=== PATIENT | male | born 1955 | race Caucasian/White ===

== ENCOUNTER 2019-12-11 14:03 | Emergency (ER) | payer MEDICARE, SELFPAY ==
[2019-12-11] VITALS (22 sets, daily range): BP systolic 100–122; BP diastolic 52–85; PULSE 80–98; RESP 12–20; TEMP 36.3; O2SAT 92–100
--- NOTE | ~2019-12-11 | CT_ITS ---
EXAMINATION: CT brain wo con EXAM DATE: 12/11/2019 14:30 INDICATION: Dizziness and shakiness, symptoms 3 days. TECHNIQUE: Spiral CT of the head was performed without contrast. Axial, coronal and sagittal images were reviewed. The dose-length product (DLP) for this examination was 605.33 mGy-cm. The exposure w as tailored according to patient size, and iterative reconstruction (ASIR) was used as additional dos e reduction technique. There is no prior study for comparison. FINDINGS: There is no acute intraparenchymal hemorrhage. No evidence of intraparenchymal brain mass lesion. No evidence of acute infarction. Please note that initial head CT has limited sensitivity f or small or acute infarctions. There is mild periventricular and subcortical hypodensity, nonspecific but probably related to small vessel ischemic disease. There is mild prominence of the sulci and v entricles related to cerebral atrophy. There is intracranial carotid arteriosclerosis. There are n o extra-axial collections. There is no mass effect or midline shift. The orbits are unremarkable. Soft tissue is unremarkable. The visualized sinuses and mastoid air cells are well aerated. IMPRESSION: 1. No acute intracranial findings. 2. Chronic age related findings. Reviewed, dictated and finalized at location A.
--- NOTE | ~2019-12-11 | XR_ITS ---
EXAMINATION: XR chest 2V EXAM DATE: 12/11/2019 14:34 INDICATION: Dizziness and weakness. TECHNIQUE: Frontal and lateral projections of the chest obtained and reviewed. There is no prior my dy for comparison. FINDINGS: Some hyperinflation. The lungs are clear. There are no pleural effusions. The cardiomedia stinal silhouette is within normal limits. There is no pneumothorax suspected. The bones and soft t issues are unremarkable. IMPRESSION: No acute cardiopulmonary findings. Reviewed, dictated and finalized at location A.
--- NOTE | 2019-12-11 14:10 | ECG_ITS ---
Measurements Intervals [place] Rate: 95 P: 42 [place]: 189 QRS: -61 QRSD: 164 T: 22 QT: 393 QTc: 496 Interpretive Statements SINUS RHYTHM LEFT AXIS DEVIATION RIGHT BUNDLE BRANCH BLOCK BASELINE ARTIFACT- AVR, AVF ABNORMAL ECG Electronically Signed On 12-11-2019 14:21:27 CDT by Cecil Boothe D.O.
[2019-12-11 14:57] LABS: Basophils Percent Auto 0.4 % (0.2-1.2); Eosinophils Absolute Auto 0.1 K/mm3 (0-0.3); Hematocrit 38.1 % (42.0-52.0); Hemoglobin 12.9 g/dL (14.0-18.0); Immature Granulocyte Absolute 0.03 K/mm3 (0.00-0.031); Immature Granulocyte Percent A 0.5 % (0-0.5); Lymphocytes Absolute Auto 1.22 K/mm3 (0.9-3.2); Lymphocytes Percent Auto 21.9 % (18.3-44.2); Mean Corpuscular HGB Conc 33.9 g/dl (32-36); Mean Corpuscular Hemoglobin 29.8 pg (26-34); Mean Platelet Volume 11.3 fl (7.4-10.4); Monocytes Absolute Auto 0.6 K/mm3 (0.1-0.6); Monocytes Percent Auto 10.4 % (2.6-8.5); Neutrophils Absolute Auto 3.6 K/mm3 (1.3-6.7); Neutrophils Percent Auto 64.8 % (45.5-73.1); Platelet Count Result 152 k/mm3 (150-375); Red Blood Count 4.33 M/mm3 (4.6-6.20); Red Cell Distribution Width 13.2 % (11.5-14.5); White Blood Count 5.6 K/mm3 (4.5-10.0)
[2019-12-11 15:06] LABS: Alanine Aminotransferase 18 U/L (4-50); Albumin Level 4.3 g/dL (3.5-5.1); Alkaline Phosphatase 93 U/L (38-126); Anion Gap 10 mmol/L (8-16); Aspartate Amino Transferase 22 U/L (17-59); Bilirubin,Total 0.5 mg/dL (0.2-1.3); Blood Urea Nitrogen 24 mg/dL (9-20); CRP < 0.5 mg/dL (<1.0); Calcium 9.3 mg/dL (8.4-10.2); Carbon Dioxide 27 mmol/L (22-30); Chloride 103 mmol/L (98-107); Estimated CRCL calculation 45 ml/min; Estimated Glomerular Filt Rate 41; Glucose 134 mg/dL (75-110); Lipase 32 U/L (23-300); Potassium 4.5 mmol/L (3.4-5.0); Sodium 140 mmol/L (137-145)
[2019-12-11 15:09] LABS: Lactic Acid Reflex 1.3 mmol/L (0.7-2.1)
[2019-12-11 15:16] LABS: Troponin I < 0.012 ng/mL (0.000-0.034)
[2019-12-11 15:19] LABS: Partial Thromboplastin Time 31.7 SECONDS (22.3-36.8)
[2019-12-11] MEDS: SODIUM CHLORIDE 0.9% IV 1,000 ML 999 ML IV CONT (15:44)
--- NOTE | 2019-12-11 15:58 | ED.GENADULT ---
HPI - General Adult General Chief complaint: Dizziness Stated complaint: DIZZY LIGHTHEADED SHAKING Time Seen by Provider: 12/11/19 15:33 Source: patient and EMS Limitations: clinical condition History of Present Illness HPI narrative: Patient is a 64-year-old male who presents to emergency department for evaluation of dizziness from [facility] patient with history of anxiety depression paranoia bipolar disorder type 2 diabetes mellitus hyperlipidemia hypertension patient on arrival notes that he was having paranoia about an individual wanting to hurt him at the [facility]. Patient also notes he has felt slightly dizzy. Patient denies other complaints on arrival and is otherwise resting comfortably in the room in no distress patient denies any suicidal or homicidal ideation Related Data Allergies Allergy/AdvReac Type Severity Reaction Status Date / Time prednisone Allergy Swelling Verified 12/11/19 15:44 Review of Systems Review of Systems: ROS unobtainable: Yes unobtainable due to medical condition PMFSH Past Medical History Medical History (Updated 12/11/19 @ 17:06 by Nikhil Keating PA-C) Anxiety Bipolar 1 disorder Depression Hyperlipidemia Hypertension Exam Narrative: Exam Narrative: GENERAL: Well-appearing, well-nourished, and in no acute distress. HEAD: Normocephalic, atraumatic. EYES: PERRLA and EOMI. ENT: Nares clear, no rhinorrhea or epistaxis. Mucous membranes moist. Oropharynx without tonsillar hypertrophy exudate or other lesions. Right TM nonerythematous nonbulging left tm unable to visualize secondary to cerumen impaction NECK: Supple. No adenopathy or masses. CHEST: Clear to auscultation. No respiratory distress. No wheezes rales or rhonchi HEART: Regular rate and rhythm. No murmur heard. Normal peripheral pulses. ABDOMEN: Soft, nontender, nondistended EXTREMITIES: Normal range of motion. No edema. SKIN: Warm, dry, no rash. NEURO: No focal deficits. Alert and oriented person date to include month and year as well as reason for being in the emergency department. Cranial nerves II through XII grossly intact PSYCH: Normal mood and affect. Course Course Emergency Course: Patient in the room in no distress aware of case findings treatment plan and diagnosis felt appropriate for [facility] back to the [facility] no high risk changes in the blood work or imaging able to ambulate without difficulty possible dehydration as the etiology of his symptoms felt appropriate for return to [facility] for reevaluation by primary care Vital Signs Vital signs: Vital Signs Temperature 97.4 F L 12/11/19 14:07 Pulse Rate 98 12/11/19 14:07 Respiratory Rate 20 12/11/19 14:07 Blood Pressure 119/78 12/11/19 14:07 Pulse Oximetry 96 12/11/19 14:07 Temperature 97.4 F L 12/11/19 14:07 Pulse Rate 98 12/11/19 14:07 Respiratory Rate 12/11/19 14:07 Blood Pressure 119/78 12/11/19 14:07 Pulse Oximetry 96 12/11/19 14:07 Medical Decision Making MDM Narrative Medical decision making narrative: Patient in the room in no distress aware of case findings treatment plan and diagnosis normal vital signs no high risk changes in the blood work or imaging was hydrated was able to ambulate without difficulty has remained stable in no distress with no complaints resting comfortably and felt appropriate for discharge back to the Vital Signs Vital Signs: Vital Signs Temperature 97.4 F L 12/11/19 14:07 Pulse Rate 98 12/11/19 14:07 Respiratory Rate 12/11/19 14:07 Blood Pressure 119/78 12/11/19 14:07 Pulse Oximetry 96 12/11/19 14:07 Temperature 97.4 F L 12/11/19 14:07 Pulse Rate 98 12/11/19 14:07 Respiratory Rate 12/11/19 14:07 Blood Pressure 119/78 12/11/19 14:07 Pulse Oximetry 96 12/11/19 14:07 Lab Data Result diagrams: 12/11/19 14:38 12/11/19 14:38 Labs: Lab Results 12/11/19 12/11/19 12/11/19 Range/Units 14:38 14
[2019-12-11 16:17] LABS: Valproic Acid 62.8 ug/mL (50-120)
[2019-12-11 16:22] LABS: Add Urine Microscopic? NO; Appearance Urine Clear (Clear); Bilirubin Urine Negative (Negative); Blood Urine Negative (Negative); Color Urine Yellow (Yellow); Glucose Urine UA Negative (Negative); Ketones Urine Negative (Negative); Leukocyte Esterase Ur Negative LEU/UL (Negative); Nitrate Urine Negative (Negative); Protein Urine Negative (Negative); Specific Grav Ur 1.012 (1.001-1.035); Urobilinogen Urine Negative mg/dL (<2.0)
--- NOTE | 2019-12-11 17:48 | PC.NURSE ---
PT AMBULATED WITHOUT ASSISTANCE.
== END 2019-12-11 18:53 ==
PROVIDERS: Emergency Medicine Emergency Medical Services; Emergency Provider Emergency Medicine
DX: R42 Dizziness and giddiness (principal); E11.9 Type 2 diabetes mellitus without complications; I10 Essential (primary) hypertension; I45.10 Unspecified right bundle-branch block
CPT/HCPCS: 36415; 51701; 70450; 71046; 80053; 80164; 81003; 83605; 83690; 84484; 85025; 85610; 85730; 86140; 93005; 96360; 99284; J7030

== ENCOUNTER 2020-01-20 13:12 | Emergency (ER) | payer MEDICARE, SELFPAY ==
--- NOTE | ~2020-01-20 | XR_ITS ---
EXAMINATION: XR hip LT 2V w AP pelvis DATE: 01/20/2020 14:00 INDICATION: Left hip injury. TECHNIQUE: An anteroposterior view of the pelvis and 2 views of left hip were obtained. COMPARISON: None. FINDINGS: There is dextrocurvature and mild spondylosis of lumbar spine. No fracture. There is mild o steoarthritis of the hips. IMPRESSION: 1. Mild osteoarthritis of the hips. Reviewed, dictated and finalized at location A. CE BOOKING OFFICER
--- NOTE | ~2020-01-20 | CT_ITS ---
EXAMINATION: CT cervical spine wo con DATE: 01/20/2020 14:08 INDICATION: Head injury. TECHNIQUE: Computed tomography (CT) of the cervical spine was performed without intravenous contrast. Automated exposure control and iterative reconstruction technique were employed. The dose-length pro duct was 387.45 mGy-cm. COMPARISON: None FINDINGS: There is mild emphysema. Bone alignment is normal. Vertebral body heights and intervertebra l disc heights are normal. The following disc levels are specifically discussed: C2-C3: There is no uncovertebral joint osteoarthritis. There is moderate right and severe left facet joint osteoarthritis. There is no neural foraminal stenosis. There is no central canal stenosis. C3-C4: There is mild bilateral uncovertebral joint osteoarthritis. There is severe right and mild lef t facet joint osteoarthritis. There is mild right neural foraminal stenosis. There is mild central ca nal stenosis. C4-C5: There is mild right and moderate left uncovertebral joint osteoarthritis. There is moderate ri ght and severe left facet joint osteoarthritis. There is mild bilateral neural foraminal stenosis. Th ere is mild central canal stenosis. C5-C6: There is mild left uncovertebral joint osteoarthritis. There is severe bilateral facet joint o steoarthritis. There is mild left neural foraminal stenosis. There is mild central canal stenosis. C6-C7: There is no uncovertebral joint osteoarthritis. There is moderate right and mild left facet glenny int osteoarthritis. There is no neural foraminal stenosis. There is no central canal stenosis. C7-T1: There is no uncovertebral joint osteoarthritis. There is severe right and moderate left facet joint osteoarthritis. There is mild right neural foraminal stenosis. There is no central canal stenos is. IMPRESSION: 1. No fracture. 2. Mild cervical spondylosis. Reviewed, dictated and finalized at location A. UNTING TECHNICIAN
--- NOTE | ~2020-01-20 | CT_ITS ---
EXAMINATION: CT brain wo con DATE: 01/20/2020 14:08 INDICATION: Head injury. TECHNIQUE: Computed tomography (CT) of the head was performed without intravenous contrast. The mA wa s adjusted according to patient size. Iterative reconstruction technique was employed. The dose-lengt h product was 605.33 mGy-cm. COMPARISON: Head CT 12/11/2019 FINDINGS: There is no intracranial hemorrhage, acute infarction, or abnormal intracranial mass lesion . The ventricles are normal in size. The paranasal sinuses are clear. The mastoid air cells are pura l. The orbits are normal. IMPRESSION: 1. Normal brain. Reviewed, dictated and finalized at location A. MANAGER RN IMPRESSION: 1. Normal brain.
--- NOTE | ~2020-01-20 | XR_ITS ---
EXAMINATION: XR knee LT 3V DATE: 01/20/2020 14:00 INDICATION: Left knee injury. TECHNIQUE: 3 views of left knee were obtained. COMPARISON: None. FINDINGS: Bone alignment is normal. No fracture. There is mild osteoarthritis of patellofemoral teressa rtment. No knee joint effusion. IMPRESSION: 1. Mild left knee osteoarthritis. Reviewed, dictated and finalized at location A. LE DRILLER
[2020-01-20 13:16] VITALS: BP 134/98; PULSE 97; RESP 16; TEMP 36.8; O2SAT 95
--- NOTE | 2020-01-20 14:33 | ED.FALL ---
HPI - Fall General Chief Complaint: Fall Stated Complaint: fall, hit head. +LOC Time Seen by Provider: 01/20/20 13:19 History of Present Illness HPI Narrative: Patient is a 64-year-old male who presents ER status post fall. Patient was in his bedroom and tripped over a blanket and fell and struck his head. Apparently he lost consciousness. He initially told the shelter that he had some left hip pain. Here he reports left knee pain. No other concerns at this time. Related Data Allergies Allergy/AdvReac Type Severity Reaction Status Date / Time prednisone Allergy Swelling Verified 12/11/19 15:44 Review of Systems Review of Systems: All systems reviewed & are unremarkable except as noted in HPI and below Constitutional: Constitutional: Denies chills, Denies fever(s) and Denies weakness ENT: Denies nasal congestion and Denies sore throat Cardiovascular: Cardiovascular: Denies chest pain and Denies radiating jaw, neck or arm pain Respiratory: Respiratory: Denies cough and Denies dyspnea Musculoskeletal: Musculoskeletal: Denies back pain, Reports arthralgias, Denies joint swelling and Denies muscle cramps PMFSH Past Medical History Medical History (Updated 01/20/20 @ 14:40 by Felipe Ley MD) Anxiety Bipolar 1 disorder Depression Hyperlipidemia Hypertension Surgical History Surgical History (Updated 01/20/20 @ 14:37 by Felipe Ley MD) No pertinent past surgical history Social History Social History (Updated 01/20/20 @ 14:37 by Felipe Ley MD) Social History: Resides at [facility]. 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 Exam Narrative: Exam Narrative: GENERAL: Well-appearing, well-nourished, and in no acute distress. HEAD: Normocephalic, atraumatic. EYES: PERRL and EOMI. NECK: C-spine immobilized. No midline tenderness. CHEST: Clear to auscultation. No respiratory distress. HEART: Regular rate and rhythm. Normal peripheral pulses. EXTREMITIES: Maintains range of motion bilateral hips and knees. Mild tenderness over the left knee. SKIN: Warm, dry, no rash. NEURO: Alert and oriented x3. Course Course Emergency Course: Unremarkable evaluation. Discharge home. Vital Signs Vital signs: Vital Signs Temperature 98.2 F 11/08/20 13:16 Pulse Rate 97 01/20/20 13:16 Respiratory Rate 16 01/20/20 13:16 Blood Pressure 134/98 H 01/20/20 13:16 Pulse Oximetry 95 01/20/20 13:16 Temperature 98.2 F 01/20/20 13:16 Pulse Rate 97 01/20/20 13:16 Respiratory Rate 16 01/20/20 13:16 Blood Pressure 134/98 H 01/20/20 13:16 Pulse Oximetry 95 01/20/20 13:16 MDM - Fall Imaging Data Radiologist's impression: ITS Impressions Knee X-Ray 01/20/20 14:02 IMPRESSION: 1. Mild left knee osteoarthritis. Hip/Pelvis X-Ray 01/20/20 14:03 IMPRESSION: 1. Mild osteoarthritis of the hips. Head CT 01/20/20 14:09 IMPRESSION: 1. Normal brain. Cervical Spine CT 01/20/20 14:12 IMPRESSION: 1. No fracture. 2. Mild cervical spondylosis. Discharge Plan Discharge Clinical Impression: Knee pain Patient Disposition: Home, Self-Care Condition: Stable Instructions: Knee Pain (ED) Additional Instructions: CT imaging of your head and neck as well as x-ray imaging of your left knee and hip revealed no acute injury. Return to the ER if you have recurrent fall, you have chest pain or shortness of breath, cannot keep down food or water, you have additional concerns. Follow-up/Referrals: NALINI,Taqueria ALICEA. [Primary Care Provider] - 1 Week
[2020-01-20 14:52] VITALS: BP 136/78; PULSE 90; RESP 18; O2SAT 98
--- NOTE | 2020-01-20 14:58 | PC.NURSE ---
called [facility] to transfer patient home. [facility] declined due to not having rigs in the area. Contacted [facility] to transfer and the gave an eta of now. they are on their way
--- NOTE | 2020-01-20 15:27 | PC.NURSE ---
[facility] has arrived
[2020-01-20 15:42] VITALS: BP 120/90; PULSE 84; RESP 17; O2SAT 98
--- NOTE | 2020-01-20 15:43 | ECG_ITS ---
Measurements Intervals [place] Rate: 98 P: [place]: 0 QRS: -75 QRSD: 173 T: 28 QT: 387 QTc: 494 Interpretive Statements SINUS RHYTHM LEFT AXIS DEVIATION RIGHT BUNDLE BRANCH BLOCK BASELINE WANDER- V4, V6 ABNORMAL ECG Electronically Signed On 01-20-2020 18:03:10 PRODUCT DEVELOPMENT ASSISTANT by Cecil Boothe D.O.
== END 2020-01-20 15:43 | disposition home or self-care (01) ==
PROVIDERS: Emergency Provider Emergency Medicine; PCP Internal Medicine
DX: M25.562 Pain in left knee (principal); E78.5 Hyperlipidemia, unspecified; I10 Essential (primary) hypertension; Z66 Do not resuscitate; M17.12 Unilateral primary osteoarthritis, left knee; M16.0 Bilateral primary osteoarthritis of hip; M47.812 Spondylosis without myelopathy or radiculopathy, cervical region; W18.09XA Striking against other object with subsequent fall, initial encounter; I45.10 Unspecified right bundle-branch block
CPT/HCPCS: 70450; 72125; 73502; 73562; 93005; 99284

== ENCOUNTER 2020-02-10 03:39 | Emergency (ER) | payer MEDICARE, SELFPAY ==
[2020-02-10] VITALS (16 sets, daily range): BP systolic 101–119; BP diastolic 68–86; PULSE 91–102; RESP 13–21; TEMP 37.8; O2SAT 91–99
--- NOTE | ~2020-02-10 | XR_ITS ---
XR chest 1V portable DATE: 02/10/2020 04:24 INDICATION: Cough TECHNIQUE: Portable AP chest on 02/10/2020 at 0426 hours COMPARISON: 12/11/2019 AP and lateral chest FINDINGS: Mild interstitial infiltrate is suggested in the left mid and lower lung zone. The lungs ot herwise appear essentially clear on this limited portable mildly hyper penetrated chest. Repeat chest radiograph is recommended. Heart size normal. Aortic calcification. No hilar or mediastinal enlargement is evident. Included skeletal structures are unremarkable other than osteopenia and degenerative change of the th oracic spine. IMPRESSION: Suggestion of mild interstitial infiltrate in the left mid and lower lung zones Reviewed, dictated and finalized at location A. H MEASURER MACHINE IMPRESSION: Suggestion of mild interstitial infiltrate in the left mid and lowe r lung zones
--- NOTE | ~2020-02-10 | CT_ITS ---
EXAMINATION: CT brain wo con DATE: 02/10/2020 05:10 INDICATION: Altered mental status. Multiple falls. TECHNIQUE: Computed tomography (CT) of the head was performed without intravenous contrast. The mA wa s adjusted according to patient size. Iterative reconstruction technique was employed. Exam dose: 68 1.00 mGy-cm total exam DLP. COMPARISON: 01/20/2020 CT brain FINDINGS: No intracranial mass lesion or hemorrhage or cerebrovascular accident. No midline shift or mass effect. Normal ventricular size. No subdural or epidural hematoma. Orbital contents are unremark able. No fracture or bone destruction of the cranial vault. Mastoid air cells and paranasal sinuses are nor bill developed and aerated. IMPRESSION: Negative Reviewed, dictated and finalized at Location A. Reviewed, dictated and finalized at location A. ION DIRECTOR PARTY PLAN SALES IMPRESSION: Negative
--- NOTE | ~2020-02-10 | CT_ITS ---
EXAMINATION: CT abdomen pelvis wo con DATE: 02/10/2020 06:33 INDICATION: Abdominal pain TECHNIQUE: Computed tomography (CT) of the abdomen and pelvis was performed without intravenous contr ast. Automated exposure control and iterative reconstruction technique were employed. Exam dose: 106 4.98 mGy-cm total exam DLP. COMPARISON: None. FINDINGS: There are focal areas of minimal infiltrate or atelectasis at the lung bases. Normal heart size. No pericardial or pleural effusion. Small sliding hiatal hernia. The liver, gallbladder, bile ducts, spleen, pancreas, pancreatic duct and adrenal glands are unremark able on this limited noncontrast examination. Exophytic 2.6 cm posterior mid right renal cyst. 1.5 cm hyperdense upper pole lateral left renal cyst. 1.8 cm exophytic indeterminate posterolateral mid left renal hypodense indeterminate lesion. No urinary tract calculus or hydroureteronephrosis. Normal caliber of the abdominal aorta; no intraperitoneal or retroperitoneal or pelvic mass lesion or lymphadenopathy or ascites. Small fat-containing umbilical hernia. Prostate enlargement. The urinary bladder is unremarkable. No bowel obstruction, bowel wall thickening, pneumatosis or intraperitoneal free air. No suspicious osteolytic or osteoblastic lesions. IMPRESSION: Indeterminate 1.8 cm left renal hypodense lesion; consider further evaluation with CT ab domen examination with IV contrast material or MRI renal examination Bilateral renal cysts Small sliding hiatal hernia Prostate enlargement Reviewed, dictated and finalized at Location A. Reviewed, dictated and finalized at location A. HER EDUCATION DIRECTOR IMPRESSION: Indeterminate 1.8 cm left renal hypodense lesion; consider further evaluation with CT abdomen examination with IV contrast material or MRI renal examination Bilateral renal cysts Small sliding hiatal hernia Prostate enlargement
--- NOTE | ~2020-02-10 | CT_ITS ---
EXAMINATION: CT cervical spine wo con DATE: 02/10/2020 05:10 INDICATION: Multiple falls. Neck pain. Altered mental status. TECHNIQUE: Computed tomography (CT) of the cervical spine was performed without intravenous contrast. Automated exposure control and iterative reconstruction technique were employed. Exam dose: 548.66 mGy-cm total exam DLP. COMPARISON: None FINDINGS: Emphysematous changes and probable scarring in both apices. No cervical mass lesion or lymphadenopathy is evident. The thyroid gland appears normal. C1 and C2 are normally aligned and the odontoid process is intact. No fracture or dislocation or lock ed facet or prevertebral soft tissue swelling of the cervical spine. Cervical interspaces are relativ brunilda preserved. There is degenerative change at the apophyseal joints bilaterally, especially on the l eft at C4-5 and on the right at C3-4. IMPRESSION: Degenerative changes; no fracture or dislocation Reviewed, dictated and finalized at Location A. Reviewed, dictated and finalized at location A. RIBUTION SUPERVISOR
--- NOTE | 2020-02-10 03:51 | ECG_ITS ---
Measurements Intervals [place] Rate: 94 P: 59 MD: 209 QRS: -62 QRSD: 181 T: 23 QT: 387 QTc: 485 Interpretive Statements SINUS RHYTHM WITH FIRST DEGREE AV BLOCK LEFT AXIS DEVIATION RIGHT BUNDLE BRANCH BLOCK BASELINE ARTIFACT- I, II, AVR, AVL, AVF ABNORMAL ECG Electronically Signed On 02-10-2020 8:05:13 SUPERVISOR UNDERWRITING CLERKS by Cecil Boothe D.O.
[2020-02-10 04:16] LABS: Alveolar/Arterial O2 Gradient 53.5 mmHg; Base Excess ABG -2.1 mEq/l (+/-2.0); Fractional Inspired Oxygen 21 %; HCO3 ABG 21.2 mEq/l (22.0-26.0); Oxygen Content ABG 14.5 %vol (16.0-22.0); Oxygen Saturation ABG 91.9 % (95.0-100.0); Oxyhemoglobin 89.4 % THb (90.0-100.0); PCO2 ABG 31.3 mmHg (35.0-45.0); PO2 ABG 58.8 mmHg (80.0-100.0); Site Drawn RIGHT RADIAL; Total Hemoglobin 11.5 g/dL (12.0-18.0); pH ABG 7.448 (7.350-7.450)
[2020-02-10 04:17] LABS: Device ROOM AIR; Modified Allen's Test Pass
[2020-02-10] MEDS: SODIUM CHLORIDE 0.9% IV 1,000 ML 999 ML IV CONT (04:28)
[2020-02-10 04:29] LABS: Basophils Percent Auto 0.2 % (0.2-1.2); Eosinophils Percent Auto 0.1 % (0-4.4); Hemoglobin 11.3 g/dL (14.0-18.0); Immature Granulocyte Absolute 0.04 K/mm3 (0.00-0.031); Immature Granulocyte Percent A 0.5 % (0-0.5); Lymphocytes Absolute Auto 0.76 K/mm3 (0.9-3.2); Mean Corpuscular HGB Conc 33.2 g/dl (32-36); Mean Corpuscular Hemoglobin 30.3 pg (26-34); Mean Corpuscular Volume 91.2 fl (80-100); Monocytes Absolute Auto 0.9 K/mm3 (0.1-0.6); Monocytes Percent Auto 10.2 % (2.6-8.5); Neutrophils Absolute Auto 6.7 K/mm3 (1.3-6.7); Platelet Count Result 114 k/mm3 (150-375); Red Blood Count 3.73 M/mm3 (4.6-6.20); Red Cell Distribution Width 14.6 % (11.5-14.5); White Blood Count 8.4 K/mm3 (4.5-10.0)
[2020-02-10 04:39] LABS: Ammonia < 9 umol/L (9-30)
[2020-02-10 04:41] LABS: Alanine Aminotransferase 47 U/L (4-50); Alkaline Phosphatase 70 U/L (38-126); Anion Gap 15 mmol/L (8-16); Aspartate Amino Transferase 232 U/L (17-59); Bilirubin,Total 1.2 mg/dL (0.2-1.3); Blood Urea Nitrogen 34 mg/dL (9-20); Calcium 9.3 mg/dL (8.4-10.2); Carbon Dioxide 23 mmol/L (22-30); Chloride 102 mmol/L (98-107); Estimated CRCL calculation 42 ml/min; Estimated Glomerular Filt Rate 38; Glucose 74 mg/dL (75-110); Potassium 4.3 mmol/L (3.4-5.0); Prothrombin Time 13.9 Seconds (11.1-14.7); Sodium 140 mmol/L (137-145)
[2020-02-10 04:42] LABS: Partial Thromboplastin Time 36.4 SECONDS (22.3-36.8)
--- NOTE | 2020-02-10 04:51 | PC.NURSE ---
Patient taken to CT.
[2020-02-10 04:52] LABS: Troponin I < 0.012 ng/mL (0.000-0.034)
[2020-02-10 05:02] LABS: Add Urine Microscopic? YES; Appearance Urine Clear (Clear); Bilirubin Urine Negative (Negative); Blood Urine 1+ (Negative); Color Urine Yellow (Yellow); Glucose Urine UA Negative (Negative); Ketones Urine 1+ mg/dL (Negative); Leukocyte Esterase Ur Negative LEU/UL (Negative); Nitrate Urine Negative (Negative); Protein Urine 1+ mg/dL (Negative); RBC Urine 0-2 /hpf (0-2); Specific Grav Ur 1.017 (1.001-1.035); Urobilinogen Urine Negative mg/dL (<2.0); WBC Urine 0-3 /hpf
--- NOTE | 2020-02-10 05:13 | ED.AMS ---
HPI - Altered Mental Status General Chief Complaint: Altered Mental Status Stated Complaint: FEVER/ AMS Time Seen by Provider: 02/10/20 03:47 Limitations: altered mental status History of Present Illness HPI narrative: Patient is a 64-year-old gentleman who presents to the emergency department with chief complaint of altered mental status frequent falls and fever. Per the [facility] the patient has been more confused than normal is also had multiple falls at the [facility]. They noticed that he had a low-grade fever and I decided to send the patient to the emergency department for evaluation tonight. Patient currently has no complaints but is confused and not able to provide history. The [facility] reports that the patient has not had any vomiting diarrhea or been complaining of abdominal pain or shortness of breath. Patient has been tested multiple times for COVID-19 and they have come back negative to this point. Related Data Home Medications Medication Instructions Recorded Confirmed amitriptyline 02/10/20 atenolol 02/10/20 atorvastatin 02/10/20 bupropion HCl PO 02/10/20 divalproex PO 02/10/20 duloxetine mg PO 02/10/20 gabapentin 02/10/20 hydroxyzine HCl 02/10/20 lorazepam 02/10/20 mirtazapine mg 02/10/20 montelukast mg 02/10/20 omeprazole 02/10/20 prazosin 02/10/20 tamsulosin mg PO 02/10/20 tramadol mg 02/10/20 umeclidinium [Incruse Ellipta] INHALATION 02/10/20 Allergies Allergy/AdvReac Type Severity Reaction Status Date / Time prednisone Allergy Swelling Verified 02/10/20 03:53 Review of Systems Review of Systems: Narrative: CONSTITUTIONAL: Denies fever, chills, or sweats. EYES: Denies visual changes, redness, or discharge. ENT: Denies rhinorrhea, congestion, sore throat, or otalgia. CARDIOVASCULAR: Denies chest pain, palpitations, or edema. RESPIRATORY: Denies cough or dyspnea. GASTROINTESTINAL: Denies abdominal pain, nausea, vomiting, or diarrhea. GENITOURINARY: Denies dysuria or hematuria. SKIN: Denies rash or itching. MUSCULOSKELETAL: Denies back pain, joint pain, or myalgia. NEUROLOGIC: Denies headache, numbness, or weakness. PSYCHIATRIC: Denies anxiety or depression. A 10 system review of systems was completed on the patient and is negative except for what is stated in the HPI. Nursing and ancillary documentation was reviewed. [facility] Past Medical History Medical History Anxiety Bipolar 1 disorder Depression Hyperlipidemia Hypertension Surgical History Surgical History No pertinent past surgical history Social History Social History Social History: Resides at [facility]. 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 Exam Narrative: Exam Narrative: GENERAL: Well-appearing, well-nourished, and in no acute distress. HEAD: Normocephalic, atraumatic. EYES: PERRLA and EOMI. ENT: Nares clear, no rhinorrhea or epistaxis. Mucous membranes moist. NECK: Supple. CHEST: Clear to auscultation. No respiratory distress. HEART: Regular rate and rhythm. No murmur heard. Normal peripheral pulses. ABDOMEN: Soft, nontender, nondistended, normal active bowel sounds. EXTREMITIES: Normal range of motion. No edema. SKIN: Warm, dry, no rash. NEURO: No focal deficits. Alert and confused. PSYCH: Normal mood and affect. Course Course Emergency Course: Patient is currently back to alert oriented x2. Patient will be ambulated if he is able to ambulate well the patient will be discharged back to [facility]. The patient was able to tolerate ambulation and is currently asking for breakfast Vital Signs Vital signs: Vital Signs Temperature 37.8 C H 02/10/20 03:36 Pulse Rate 95 02/10/20 03:36 Respiratory Rate 13 02/10/20 03:36 Blood Pressure 101/68 01/13
--- NOTE | 2020-02-10 05:39 | PC.NURSE ---
Patients caregiver at [facility] calls to get update on patient's status.
--- NOTE | 2020-02-10 06:16 | PC.NURSE ---
Patient being taken back to CT.
== END 2020-02-10 10:04 ==
PROVIDERS: Emergency Provider Emergency Medicine
DX: R53.1 Weakness (principal); F41.9 Anxiety disorder, unspecified; F31.9 Bipolar disorder, unspecified; E78.5 Hyperlipidemia, unspecified; I10 Essential (primary) hypertension; Z66 Do not resuscitate; I44.0 Atrioventricular block, first degree; I45.10 Unspecified right bundle-branch block; R91.8 Other nonspecific abnormal finding of lung field; N28.9 Disorder of kidney and ureter, unspecified; N28.1 Cyst of kidney, acquired; K44.9 Diaphragmatic hernia without obstruction or gangrene; N40.0 Benign prostatic hyperplasia without lower urinary tract symptoms
CPT/HCPCS: 36415; 36600; 51701; 70450; 71045; 72125; 74176; 80053; 81001; 82140; 82805; 83605; 84484; 85025; 85610; 85730; 87040; 93005; 96360; 99284; J7030

== ENCOUNTER 2020-09-01 18:32 | Observation (INO) | payer MEDICARE, MEDICAID, SELFPAY ==
--- NOTE | ~2020-09-01 | XR_ITS ---
EXAMINATION: XR chest 2V DATE: 09/01/2020 19:23 INDICATION: Left-sided chest pain. TECHNIQUE: Frontal and lateral views of the chest were obtained. COMPARISON: Chest single view 02/10/2020, CT abdomen and pelvis 02/10/2020 FINDINGS: There is mild atelectasis in right lower lung zone. No pleural effusion or pneumothorax. Th e heart size is normal. There are old healed right rib fractures. IMPRESSION: 1. Mild atelectasis in right lower lung zone. Reviewed, dictated and finalized at location A.
--- NOTE | ~2020-09-01 | CT_ITS ---
EXAMINATION: CT brain wo con DATE: 09/01/2020 20:29 INDICATION: Confusion. TECHNIQUE: Computed tomography (CT) of the head was performed without intravenous contrast. The mA wa s adjusted according to patient size. Iterative reconstruction technique was employed. The dose-lengt h product was 681.00 mGy-cm. COMPARISON: Head CT 02/10/2020 FINDINGS: There is no intracranial hemorrhage, acute infarction, or abnormal intracranial mass lesion . The ventricles are normal in size. There is mild mucosal thickening in the paranasal sinuses. The o rbits are normal. The mastoid air cells are normal. There is cerumen in left external auditory canal. IMPRESSION: 1. Normal brain. Reviewed, dictated and finalized at location A. IMPRESSION: 1. Normal brain.
[2020-09-01 18:31] VITALS: BP 131/89; PULSE 100; RESP 12; TEMP 36.5; O2SAT 93
--- NOTE | 2020-09-01 18:49 | ECG_ITS ---
Measurements Intervals [place] Rate: 101 P: 55 [place]: 199 QRS: -85 QRSD: 169 T: 30 QT: 364 QTc: 472 Interpretive Statements SINUS TACHYCARDIA LEFT AXIS DEVIATION RIGHT BUNDLE BRANCH BLOCK BASELINE ARTIFACT- I, II, III, AVL, AVF, V2 ABNORMAL ECG Electronically Signed On 09-02-2020 8:00:28 CDT by Cecil Boothe D.O.
--- NOTE | 2020-09-01 18:52 | ED.GENADULT ---
HPI - General Adult General Chief complaint: Chest Pain Stated complaint: STEMI Time Seen by Provider: 09/01/20 18:38 Source: patient and EMS History of Present Illness HPI narrative: Patient is a 65 y/o male sent here from [place] for altered mental status and frequent fall. Patient has no complaint at this time. He denies any injury from his falls. He reportedly fell earlier today. He states that he had some chest pain yesterday, but he has no chest pain at this time. Possible STEMI was suspected by EMS. However, after EKG review by myself and Dr. Paredes, it was thought that his EKG does not indicate STEMI. Related Data Home Medications Medication Instructions Recorded Confirmed amitriptyline 100 mg PO DAILY 02/10/20 09/02/20 atorvastatin 20 mg PO DAILY 02/10/20 09/02/20 bupropion HCl 150 mg PO BID 02/10/20 09/02/20 duloxetine 60 mg PO BID 02/10/20 09/02/20 gabapentin 100 mg PO TID 02/10/20 09/02/20 mirtazapine 45 mg PO DAILY 02/10/20 09/02/20 montelukast 10 mg PO DAILY 02/10/20 09/02/20 tamsulosin 0.4 mg PO DAILY 02/10/20 09/02/20 divalproex 500 mg PO BID 09/02/20 09/02/20 hydrocodone-acetaminophen 1 tablet PO BID PRN 09/02/20 09/02/20 meloxicam 7.5 mg PO DAILY 09/02/20 09/02/20 pantoprazole 40 mg PO DAILY 09/02/20 09/02/20 Allergies Allergy/AdvReac Type Severity Reaction Status Date / Time prednisone Allergy Swelling Verified 09/01/20 19:04 Review of Systems Review of Systems: ROS unobtainable: Yes unobtainable due to mental status PMFSH Past Medical History Medical History (Updated 09/02/20 @ 12:27 by Shayla Boyce MD) Anxiety Bipolar 1 disorder Depression Hyperlipidemia Hypertension Surgical History Surgical History No pertinent past surgical history Social History Social History Social History: Resides at [facility]. 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 Smoking status: Former smoker Second hand tobacco smoke exposure: Yes Alcohol intake: never Substance use: never Gender identity (if verbalized by the patient): Male Spiritual care concerns: No Exam Const: General: no acute distress and well developed Orientation/consciousness: oriented to person, oriented to place and confusion HENMT: Head: normocephalic Ears: external ears normal General nose exam: Normal external nose present Eyes: General: appearance normal, both eyes and all related structures Conjunctivae: conjunctivae normal Neck: Neck: normal visual inspection and full ROM Chest: Chest palpation & inspection: normal inspection of the chest and no tenderness Resp: Effort & Inspection: normal respiratory effort Auscultation: clear to auscultation bilaterally Cardio: Rate: regular rate Rhythm: regular rhythm GI: GI Palp: No abdominal tenderness and Yes Soft to palpation Skin: General skin exam: normal color and turgor normal Neuro: General: oriented to person and oriented to place Extrem: General: normal to inspection, full ROM and no pedal edema Psych: Appearance: grossly normal Mental Status: mental status grossly normal Affect: normal affect Course Consultations Consultation #1: Discussed with Dr. Li, who agrees to admit. Date: 09/01/20 Time: 22:17 Vital Signs Vital signs: Vital Signs Temperature 36.5 C 09/01/20 18:31 Pulse Rate 100 09/01/20 18:31 Respiratory Rate 12 09/01/20 18:31 Blood Pressure 131/89 09/01/20 18:31 Pulse Oximetry 93 09/01/20 18:31 Temperature 36.2 C L 09/02/20 11:25 Pulse Rate 94 09/02/20 12:11 Respiratory Rate 16 09/02/20 11:25 Blood Pressure 141/82 H 09/02/20 11:25 Pulse Oximetry 97 09/02/20 12:13 Medical Decision Making Vital Signs Vital Signs: Vital Signs Temperature 36.5 C 09/01/20 18:31 Pulse Rate 100 09/01/20 18:31 Respiratory Rate 12 09/01/20 18:31 Blood Pressure 131/89
[2020-09-01 19:01] LABS: Basophils Percent Auto 0.4 % (0.2-1.2); Eosinophils Absolute Auto 0.2 K/mm3 (0-0.3); Eosinophils Percent Auto 4.2 % (0-4.4); Hematocrit 40.6 % (42.0-52.0); Hemoglobin 13.1 g/dL (14.0-18.0); Immature Granulocyte Absolute 0.02 K/mm3 (0.00-0.031); Immature Granulocyte Percent A 0.4 % (0-0.5); Lymphocytes Absolute Auto 1.08 K/mm3 (0.9-3.2); Lymphocytes Percent Auto 22.6 % (18.3-44.2); Mean Corpuscular HGB Conc 32.3 g/dl (32-36); Mean Corpuscular Hemoglobin 30.3 pg (26-34); Mean Platelet Volume 12.8 fl (7.4-10.4); Monocytes Absolute Auto 0.5 K/mm3 (0.1-0.6); Monocytes Percent Auto 11.1 % (2.6-8.5); Neutrophils Absolute Auto 2.9 K/mm3 (1.3-6.7); Neutrophils Percent Auto 61.3 % (45.5-73.1); Platelet Count Result 103 k/mm3 (150-375); Red Blood Count 4.32 M/mm3 (4.6-6.20); Red Cell Distribution Width 14.6 % (11.5-14.5); White Blood Count 4.8 K/mm3 (4.5-10.0)
[2020-09-01 19:13] LABS: Prothrombin Time 14.1 Seconds (11.1-14.7)
[2020-09-01 19:14] LABS: Anion Gap 12 mmol/L (8-16); Blood Urea Nitrogen 47 mg/dL (9-20); Calcium 9.6 mg/dL (8.4-10.2); Carbon Dioxide 28 mmol/L (22-30); Chloride 102 mmol/L (98-107); Estimated CRCL calculation 29 ml/min; Estimated Glomerular Filt Rate 23; Glucose 106 mg/dL (75-110); Partial Thromboplastin Time 28.6 SECONDS (22.3-36.8); Potassium 3.9 mmol/L (3.4-5.0); Sodium 142 mmol/L (137-145)
[2020-09-01 19:25] LABS: Troponin I < 0.012 ng/mL (0.000-0.034)
[2020-09-01 22:02] LABS: Troponin I < 0.012 ng/mL (0.000-0.034)
[2020-09-01] MEDS: SODIUM CHLORIDE 0.9% IV 1,000 ML 999 ML IV CONT (22:11)
[2020-09-01 22:36] LABS: Base Excess ABG 2.2 mEq/l (+/-2.0); Fractional Inspired Oxygen 21 %; HCO3 ABG 26.8 mEq/l (22.0-26.0); Oxygen Content ABG 16.1 %vol (16.0-22.0); Oxygen Saturation ABG 92.8 % (95.0-100.0); Oxyhemoglobin 91.3 % THb (90.0-100.0); PCO2 ABG 41.9 mmHg (35.0-45.0); PO2 ABG 63.6 mmHg (80.0-100.0); PO2 FiO2 Ratio Arterial Blood 3.03 %; Total Hemoglobin 12.5 g/dL (12.0-18.0); pH ABG 7.424 (7.350-7.450)
[2020-09-01 22:37] LABS: Device ROOM AIR; Modified Allen's Test Pass; Site Drawn RIGHT RADIAL
[2020-09-01 22:38] LABS: Ammonia < 9 umol/L (9-30)
[2020-09-01 23:55] LABS: Alanine Aminotransferase 28 U/L (4-50); Albumin Level 4.3 g/dL (3.5-5.1); Alkaline Phosphatase 59 U/L (38-126); Aspartate Amino Transferase 67 U/L (17-59); Bilirubin,Total 0.5 mg/dL (0.2-1.3)
[2020-09-02] VITALS (13 sets, daily range): BP systolic 125–149; BP diastolic 73–89; PULSE 75–94; RESP 16–18; TEMP 36–36.8; O2SAT 96–99; BMI 22.4
--- NOTE | 2020-09-02 00:22 | ADMGEN ---
This patient, Erwin Leggett, was admitted to Medical Room 348-01. Patient/family oriented to hospital policies and general routines including ID bracelet, bed and alarms, visiting hours, pain management, procedures, bathroom and other care routines, personal items, smoking policy, room service/diet, and visiting hours. Information on how to activate the Rapid Response Team has been discussed. Patient/Family are encouraged to report perceived risks to care and to ask questions if they do not understand what they are told or what they should do.
[2020-09-02] MEDS: SODIUM CHLORIDE 0.9% IV 1,000 ML 125 ML IV CONT (00:33)
[2020-09-02 01:49] LABS: Troponin I < 0.012 ng/mL (0.000-0.034)
[2020-09-02 02:44] LABS: Add Urine Microscopic? YES; Appearance Urine Clear (Clear); Bilirubin Urine Negative (Negative); Blood Urine Negative (Negative); Color Urine Yellow (Yellow); Glucose Urine UA Negative (Negative); Ketones Urine Trace mg/dL (Negative); Leukocyte Esterase Ur Negative LEU/UL (Negative); Mucus Urine Rare /lpf; Nitrate Urine Negative (Negative); Protein Urine 1+ mg/dL (Negative); RBC Urine 0-2 /hpf (0-2); Specific Grav Ur 1.021 (1.001-1.035); Squamous Epithelial Cell Urine Rare /hpf (Few); Urobilinogen Urine Negative mg/dL (<2.0); WBC Urine 0-3 /hpf
--- NOTE | 2020-09-02 03:03 | PM.IMHP ---
H&P: HPI History of Present Illness Date/Time: 09/02/20 03:03 Chief Complaint: Confusing Narrative: Patient is a 65 y/o male who is a [facility] resident was sent here for evaluation of altered mental status and frequent falls. He himself does not recollect any issues as he is confused. He is noted to have no injury from his falls. He thinks he is in [place]. He reports some discomfort in his belly when I evaluated him and had some difficulty in his urination. Other than that he denies any shortness of breath or cough. He denies any fever or chills. In the ED he was noted to be afebrile with stable vitals his creatinine was elevated at 2.8 with baseline around 1.8 prior to this. Rest of the other labs were within normal limits. Review of Systems Review of Systems: Narrative: Unreliable due to his confusion however - CONSTITUTIONAL: Denies weight loss, fever and chills. - HEENT: Denies changes in vision and hearing - RESPIRATORY: Denies SOB and cough. - CV: Denies palpitations and CP. - GI: Reports abdominal discomfort denies nausea, vomiting and diarrhea. - : Denies dysuria and urinary frequency. - MSK: Denies myalgia and joint pain. - SKIN: Denies rash and pruritus. - NEUROLOGICAL: Denies headache and syncope. - PSYCHIATRIC: Denies recent changes in mood. Denies anxiety and depression. All systems reviewed & are unremarkable except as noted in HPI and below Constitutional: Constitutional: Reports fatigue and Reports weakness Neurologic: Reports weakness Endocrine: Endocrine: Reports fatigue PMFSH Past Medical History Medical History (Updated 09/02/20 @ 03:09 by Bertram Li MD) Anxiety Bipolar 1 disorder Depression Hyperlipidemia Hypertension Surgical History Surgical History No pertinent past surgical history Social History Social History Social History: Resides at [facility]. 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 Smoking status: Former smoker Second hand tobacco smoke exposure: Yes Alcohol intake: never Substance use: never Gender identity (if verbalized by the patient): Male Spiritual care concerns: No Meds Home Medications and Allergies Home Medications Medication Instructions Recorded Confirmed Type amitriptyline 100 mg PO DAILY 02/10/20 09/02/20 History atorvastatin 20 mg PO DAILY 02/10/20 09/02/20 History bupropion HCl 150 mg PO BID 02/10/20 09/02/20 History duloxetine 60 mg PO BID 02/10/20 09/02/20 History gabapentin 100 mg PO TID 02/10/20 09/02/20 History mirtazapine 45 mg PO DAILY 02/10/20 09/02/20 History montelukast 10 mg PO DAILY 02/10/20 09/02/20 History tamsulosin 0.4 mg PO DAILY 02/10/20 09/02/20 History divalproex 500 mg PO BID 09/02/20 09/02/20 History hydrocodone-acetaminophen 1 tablet PO BID PRN 09/02/20 09/02/20 History meloxicam 7.5 mg PO DAILY 09/02/20 09/02/20 History pantoprazole 40 mg PO DAILY 09/02/20 09/02/20 History Allergies Allergy/AdvReac Type Severity Reaction Status Date / Time prednisone Allergy Swelling Verified 09/01/20 19:04 Vital Signs Vital Signs - 24 hr 09/01/20 18:31 09/02/20 00:25 09/02/20 00:45 Temperature 97.7 F 98.3 F Pulse Rate 100 87 80 Respiratory Rate 12 16 Blood Pressure 131/89 125/73 Pulse Oximetry 93 98 Exam Narrative: Exam Narrative: GENERAL: The patient is well developed, not in acute distress HEENT: Nonicteric sclerae, PERRLA, EOMI. Oropharynx clear. Dry mucous membranes. Conjunctivae appear well perfused. CHEST: Chest wall is nontender. HEART: Regular rate and rhythm without murmur, rubs, or gallops LUNGS: Clear to auscultation bilaterally. no respiratory distress ABDOMEN: Soft, positive bowel sounds, mild tenderness diffuse mostly on the lower abdomen, no organomegaly. Bladder scan done at bedside showing 300-400 mL urine SKIN: N
[2020-09-02 06:17] LABS: Anion Gap 9 mmol/L (8-16); Blood Urea Nitrogen 39 mg/dL (9-20); Calcium 9.1 mg/dL (8.4-10.2); Carbon Dioxide 27 mmol/L (22-30); Chloride 106 mmol/L (98-107); Estimated CRCL calculation 36 ml/min; Estimated Glomerular Filt Rate 30; Glucose 87 mg/dL (75-110); Potassium 3.5 mmol/L (3.4-5.0); Sodium 142 mmol/L (137-145)
[2020-09-02 07:24] LABS: Folic Acid > 20.0 ng/mL (2.76->20)
[2020-09-02] MEDS: ATORVASTATIN 20 MG TABLET PO (09:02)
[2020-09-02] MEDS: buPROPion HCL SR (12 HR) 150 MG TAB PO ×2 (09:03→16:55)
[2020-09-02] MEDS: MONTELUKAST SODIUM 10 MG TABLET PO (09:03)
[2020-09-02] MEDS: GABAPENTIN 100 MG CAPSULE PO ×3 (09:03→16:55)
[2020-09-02] MEDS: DIVALPROEX SODIUM DR 250 MG TABEC 500 MG PO ×2 (09:03→16:55)
[2020-09-02] MEDS: MIRTAZAPINE 15 MG TABLET 45 MG PO (09:03)
[2020-09-02] MEDS: DULoxetine HCL 60 MG CAPSULE.DR PO ×2 (09:04→16:54)
[2020-09-02] MEDS: HEPARIN SODIUM 5,000 UNITS/ML VIAL 5000 UNITS SUB-Q (09:04)
[2020-09-02] MEDS: PANTOPRAZOLE 40 MG TABLET PO (09:04)
[2020-09-02] MEDS: TAMSULOSIN HCL 0.4 MG CAPSULE PO ×2 (09:04→16:56)
[2020-09-02] MEDS: HYDROcodone/acetaminophen (*CRX) 5-325 MG TABLET 1 TAB PO (09:25)
[2020-09-02] MEDS: SODIUM CHLORIDE 0.9% IV 1,000 ML 75 ML IV CONT (12:29)
--- NOTE | 2020-09-02 17:19 | PM.IMPN ---
Progress Note: A&P Assessment and Plan (1) Altered mental status: Code(s): R41.82 - Altered mental status, unspecified Status: Acute Assessment and Plan: Baseline unknown. Suspect he may have some degree of underlying dementia. Head CT negative. Ammonia, TSH, B12, folate levels within normal limits. No evidence of infection on UA or CXR and no signs or symptoms to suggest acute infection. Continue with reorientation. Monitor mental status. Consider neurology consultation if no improvement (2) Acute on chronic renal failure: Code(s): N17.9 - Acute kidney failure, unspecified; N18.9 - Chronic kidney disease, unspecified Status: Acute Assessment and Plan: Baseline creatinine appears to be about 1.8. Creatinine at presentation was 2.8. Etiology unclear at this time. May be prerenal given improvement with IV fluids versus obstructive given urinary retention. Creatinine is 2.2 today. Continue gentle IV fluids Monitor renal function closely. Renally dose medications and avoid nephrotoxins. (3) Urinary retention: Code(s): R33.9 - Retention of urine, unspecified Status: Acute Assessment and Plan: Unclear if this is a chronic issue. Bladder scan today showed >600 cc, therefore straight cath was performed. Repeat bladder scan. Plan for Witt catheter if >350 cc Continue Flomax (4) Hypertension: Code(s): I10 - Essential (primary) hypertension Status: Acute Assessment and Plan: Blood pressure reviewed and has been generally well controlled. Last BP 141/89. Does not appear to be on any antihypertensive agents. Monitor BP trends (5) Thrombocytopenia: Code(s): D69.6 - Thrombocytopenia, unspecified Status: Acute Assessment and Plan: Platelets low at 103,000 today. Hold heparin Monitor platelet counts (6) Psychiatric illness: Code(s): F99 - Mental disorder, not otherwise specified Status: Acute Assessment and Plan: Bipolar 1, anxiety, and depression. Mood is stable at this time. No acute issues. Continue his medication regimen including bupropion, Depakote, mirtazapine, and Cymbalta Subjective Date/time seen: 09/02/20 17:19 Interval history: Date of service: 09/02/2020 Erwin Leggett is a 65-year-old male with a history of bipolar disorder, depression, anxiety, hypertension, hyperlipidemia who is seen in follow-up for altered mental status and urinary retention. His baseline mental status is unclear to me. I will plan to be in touch with family and care home staff to clarify his baseline. He is not really able to contribute to his history or answer my questions in a meaningful way. He complains of chronic low back pain but otherwise denies any pain. He is not having any trouble breathing. He is eating okay. Review of Systems Review of Systems: ROS unobtainable: Yes unobtainable due to mental status Exam Narrative: Exam Narrative: Mr. Leggett is a well-nourished, well-appearing 65-year-old male who is lying supine in bed. He appears comfortable and is in NARD. Neuro: awake, alert and oriented to self, states he is in [place] but later states he thinks he is at a hospital. States year is 2019, accurately states president. Cannot state month but aware it is summer., Speech clear. No focal neuro deficits noted HEENMT: normocephalic, atraumatic, EOMI, sclerae anicteric, moist oral mucosa, tongue midline, nares patent Neck: supple, no lymphadenopathy Respiratory: clear to auscultation bilaterally, nonlabored breathing Cardio: regular rate, regular rhythm with S1-S2 Abdomen: nondistended, normoactive bowel sounds, soft, nontender to palpation Extremities: no edema, erythema, cyanosis, clubbing, or tenderness to palpation, DP pulses 2+ bilaterally Skin: no rashes or lesions, warm and dry Psych: appropriate mood and affect, judgment and insight poor Objective Jose Luis
[2020-09-03] VITALS (11 sets, daily range): BP systolic 125–164; BP diastolic 76–92; PULSE 77–100; RESP 16; TEMP 36–36.7; O2SAT 96–100
[2020-09-03] MEDS: SODIUM CHLORIDE 0.9% IV 1,000 ML 75 ML IV CONT ×2 (00:50→17:10)
[2020-09-03 05:50] LABS: Hematocrit 37.2 % (42.0-52.0); Hemoglobin 12.1 g/dL (14.0-18.0); Immature Platelet Fraction Pct 8.7 % (0.9-11.2); Mean Corpuscular HGB Conc 32.5 g/dl (32-36); Mean Corpuscular Hemoglobin 30.4 pg (26-34); Mean Corpuscular Volume 93.5 fl (80-100); Mean Platelet Volume 12.1 fl (7.4-10.4); Platelet Count Result 86 k/mm3 (150-375); Red Blood Count 3.98 M/mm3 (4.6-6.20)
[2020-09-03 06:09] LABS: Alanine Aminotransferase 21 U/L (4-50); Albumin Level 3.6 g/dL (3.5-5.1); Alkaline Phosphatase 52 U/L (38-126); Anion Gap 8 mmol/L (8-16); Aspartate Amino Transferase 35 U/L (17-59); Bilirubin,Total 0.3 mg/dL (0.2-1.3); Blood Urea Nitrogen 25 mg/dL (9-20); Calcium 8.7 mg/dL (8.4-10.2); Carbon Dioxide 26 mmol/L (22-30); Chloride 107 mmol/L (98-107); Estimated CRCL calculation 52 ml/min; Estimated Glomerular Filt Rate 47; Glucose 87 mg/dL (75-110); Sodium 141 mmol/L (137-145)
[2020-09-03] MEDS: buPROPion HCL SR (12 HR) 150 MG TAB PO ×2 (08:08→17:11)
[2020-09-03] MEDS: GABAPENTIN 100 MG CAPSULE PO ×3 (08:08→17:11)
[2020-09-03] MEDS: DULoxetine HCL 60 MG CAPSULE.DR PO ×2 (08:09→17:11)
[2020-09-03] MEDS: DIVALPROEX SODIUM DR 250 MG TABEC 500 MG PO ×2 (08:09→17:12)
[2020-09-03] MEDS: PANTOPRAZOLE 40 MG TABLET PO (08:09)
[2020-09-03] MEDS: MIRTAZAPINE 15 MG TABLET 45 MG PO (08:09)
[2020-09-03] MEDS: MONTELUKAST SODIUM 10 MG TABLET PO (08:09)
[2020-09-03] MEDS: ATORVASTATIN 20 MG TABLET PO (08:09)
[2020-09-03] MEDS: TAMSULOSIN HCL 0.4 MG CAPSULE PO ×2 (08:09→17:12)
--- NOTE | 2020-09-03 14:06 | PM.IMPN ---
Progress Note: A&P Assessment and Plan (1) Altered mental status: Code(s): R41.82 - Altered mental status, unspecified Status: Acute Assessment and Plan: He exhibits confusion but does seem to be essentially at baseline based on NH report. Suspect he may have some degree of underlying dementia. Head CT negative. Ammonia, TSH, B12, folate levels within normal limits. No evidence of infection on UA or CXR and no signs or symptoms to suggest acute infection. Appreciate neurology consultation Continue to monitor mental status (2) Acute on chronic renal failure: Code(s): N17.9 - Acute kidney failure, unspecified; N18.9 - Chronic kidney disease, unspecified Status: Acute Assessment and Plan: Baseline creatinine appears to be about 1.8. Creatinine at presentation was 2.8. May be prerenal given improvement with IV fluids versus obstructive given urinary retention. Creatinine is back to baseline at 1.5 today. Will discontinue IV fluids as he is tolerating PO intake and has been adequately rehydrated Monitor renal function closely. Renally dose medications and avoid nephrotoxins. (3) Urinary retention: Code(s): R33.9 - Retention of urine, unspecified Status: Acute Assessment and Plan: Suspect this is related to BPH. He was able to urinate yesterday and has been urinating today without any signs of ongoing retention Continue Flomax Monitor urine output. Bladder scan as needed. (4) Hypertension: Code(s): I10 - Essential (primary) hypertension Status: Acute Assessment and Plan: Blood pressure reviewed and has been reasonable, mildly elevated at times. Last BP 141/90. Does not appear to be on any antihypertensive agents. Monitor BP trends (5) Thrombocytopenia: Code(s): D69.6 - Thrombocytopenia, unspecified Status: Acute Assessment and Plan: Appears to be chronic issue. Platelet count down to 86,000 today. No evidence of bleeding. Monitor platelet counts Check platelet antibodies. Consider hematology eval if continued decline Heparin discontinued. HIT unlikely as this is a chronic issue. (6) Psychiatric illness: Code(s): F99 - Mental disorder, not otherwise specified Status: Acute Assessment and Plan: Bipolar 1, anxiety, and depression. Mood is stable at this time. No acute issues. Continue his medication regimen including bupropion, Depakote, mirtazapine, and Cymbalta Subjective Date/time seen: 09/03/20 14:06 Interval history: Date of service: 09/02/2020 Erwin Leggett is a 65-year-old male with a history of bipolar disorder, depression, anxiety, hypertension, hyperlipidemia who is seen in follow-up for altered mental status and urinary retention. He remains confused today but seems maybe somewhat improved and is able to participate in conversation more. Complains of back pain in his midline lower back. He denies chest pain or shortness of breath. No nausea or vomiting. He has been eating well. Per nursing staff, he has been urinating regularly. He feels weak and admits he is having difficulty getting around. Discussed with skilled nursing staff reports at baseline he is alert and oriented to self and location. They noticed that recently he has become more combative. The biggest changes that he has been weak and having difficulty getting out of bed. Also been falling more frequently. He typically was able to transfer himself from bed to wheelchair. Review of Systems Review of Systems: All systems reviewed & are unremarkable except as noted in HPI and below Exam Narrative: Exam Narrative: Mr. Leggett is a well-nourished, well-appearing 65-year-old male who is lying supine in bed. He appears comfortable and is in NARD. Neuro: awake, alert and oriented to self. Knows he is in the hospital but unclear as to why. States year is 2020, accurately states president,
[2020-09-04] VITALS (8 sets, daily range): BP systolic 130–145; BP diastolic 82–88; PULSE 84–107; RESP 14–20; TEMP 36.1–36.5; O2SAT 95–96
[2020-09-04] MEDS: SODIUM CHLORIDE 0.9% IV 1,000 ML 75 ML IV CONT (05:31)
[2020-09-04 06:02] LABS: Basophils Percent Auto 0.2 % (0.2-1.2); Eosinophils Absolute Auto 0.1 K/mm3 (0-0.3); Eosinophils Percent Auto 2.5 % (0-4.4); Hematocrit 37.7 % (42.0-52.0); Hemoglobin 12.3 g/dL (14.0-18.0); Immature Granulocyte Absolute 0.02 K/mm3 (0.00-0.031); Immature Granulocyte Percent A 0.4 % (0-0.5); Lymphocytes Absolute Auto 0.96 K/mm3 (0.9-3.2); Lymphocytes Percent Auto 18.2 % (18.3-44.2); Mean Corpuscular HGB Conc 32.6 g/dl (32-36); Mean Corpuscular Hemoglobin 30.3 pg (26-34); Mean Corpuscular Volume 92.9 fl (80-100); Mean Platelet Volume 11.8 fl (7.4-10.4); Monocytes Absolute Auto 0.6 K/mm3 (0.1-0.6); Monocytes Percent Auto 11.7 % (2.6-8.5); Neutrophils Absolute Auto 3.5 K/mm3 (1.3-6.7); Platelet Count Result 94 k/mm3 (150-375); Red Blood Count 4.06 M/mm3 (4.6-6.20); Red Cell Distribution Width 14.2 % (11.5-14.5); White Blood Count 5.3 K/mm3 (4.5-10.0)
[2020-09-04 06:04] LABS: Anion Gap 6 mmol/L (8-16); Blood Urea Nitrogen 16 mg/dL (9-20); Calcium 8.7 mg/dL (8.4-10.2); Carbon Dioxide 26 mmol/L (22-30); Chloride 109 mmol/L (98-107); Estimated CRCL calculation 60 ml/min; Estimated Glomerular Filt Rate 56; Glucose 88 mg/dL (75-110); Potassium 4.3 mmol/L (3.4-5.0); Sodium 141 mmol/L (137-145)
[2020-09-04] MEDS: MIRTAZAPINE 15 MG TABLET 45 MG PO (08:06)
[2020-09-04] MEDS: buPROPion HCL SR (12 HR) 150 MG TAB PO ×2 (08:06→17:54)
[2020-09-04] MEDS: DULoxetine HCL 60 MG CAPSULE.DR PO ×2 (08:06→17:54)
[2020-09-04] MEDS: TAMSULOSIN HCL 0.4 MG CAPSULE PO ×2 (08:06→17:54)
[2020-09-04] MEDS: GABAPENTIN 100 MG CAPSULE PO ×3 (08:07→17:54)
[2020-09-04] MEDS: MONTELUKAST SODIUM 10 MG TABLET PO (08:07)
[2020-09-04] MEDS: ATORVASTATIN 20 MG TABLET PO (08:07)
[2020-09-04] MEDS: PANTOPRAZOLE 40 MG TABLET PO (08:07)
[2020-09-04] MEDS: DIVALPROEX SODIUM DR 250 MG TABEC 500 MG PO ×2 (08:07→17:55)
--- NOTE | 2020-09-04 14:05 | PM.DS ---
DS: Admitting Diagnosis Admitting Diagnosis Admitting Diagnosis: Altered mental status DS: Discharge Diagnosis Discharge Diagnosis (1) Altered mental status: Code(s): R41.82 - Altered mental status, unspecified Status: Acute Assessment and Plan: He exhibits confusion but does seem to be essentially at baseline based on ME report. Suspect he may have some degree of underlying dementia. Head CT negative. Ammonia, TSH, B12, folate levels within normal limits. No evidence of infection on UA or CXR and no signs or symptoms to suggest acute infection. Appreciate neurology consultation Continue to monitor mental status (2) Acute on chronic renal failure: Code(s): N17.9 - Acute kidney failure, unspecified; N18.9 - Chronic kidney disease, unspecified Status: Acute Assessment and Plan: Baseline creatinine appears to be about 1.8. Creatinine at presentation was 2.8. May be prerenal given improvement with IV fluids versus obstructive given urinary retention. Creatinine is back to baseline at 1.5 today. Will discontinue IV fluids as he is tolerating PO intake and has been adequately rehydrated Monitor renal function closely. Renally dose medications and avoid nephrotoxins. (3) Urinary retention: Code(s): R33.9 - Retention of urine, unspecified Status: Acute Assessment and Plan: Suspect this is related to BPH. He was able to urinate yesterday and has been urinating today without any signs of ongoing retention Continue Flomax Monitor urine output. Bladder scan as needed. (4) Hypertension: Code(s): I10 - Essential (primary) hypertension Status: Acute Assessment and Plan: Blood pressure reviewed and has been reasonable, mildly elevated at times. Last BP 141/90. Does not appear to be on any antihypertensive agents. Monitor BP trends (5) Thrombocytopenia: Code(s): D69.6 - Thrombocytopenia, unspecified Status: Acute Assessment and Plan: Appears to be chronic issue. Platelet count down to 86,000 today. No evidence of bleeding. Monitor platelet counts Check platelet antibodies. Consider hematology eval if continued decline Heparin discontinued. HIT unlikely as this is a chronic issue. (6) Psychiatric illness: Code(s): F99 - Mental disorder, not otherwise specified Status: Acute Assessment and Plan: Bipolar 1, anxiety, and depression. Mood is stable at this time. No acute issues. Continue his medication regimen including bupropion, Depakote, mirtazapine, and Cymbalta DS: Summary Hospital Course Hospital Course: Patient is 65-year-old male with a history of bipolar disorder, depression, anxiety, hypertension, hyperlipidemia who is seen in follow-up for altered mental status and urinary retention. His baseline is about 1-2 from what I understand. He has not been combative since admission. He has been treated for an RAMIRO with fluids. His creatinine is back down to baseline and is 1.30 today. He has also been able to urinate on his own without any help of straight cath patient does know who he is and where he is. He does have some confusion when it comes to the president and which hospital he is at. He did mention today that he was sad stating that he did have anywhere to go when I told him that he was going back to the [facility] he was okay with that. Platelet count has been stable and is 95 today. Blood pressure remains stable. All test are within normal limits and patient denies chest pain shortness of breath, nausea, vomiting, abdominal pain, abnormal swelling, dizziness, or syncope. Patient did state that he is just very tired today. Status at Discharge Functional status at discharge: uses cane/walker Overall status at discharge: patient is progressing back to baseline Time Spent with Patient Time attestation: Total time spent providing and/or coordinating discharge services: Docu
--- NOTE | 2020-09-04 16:51 | WPDNEURCNPN ---
Assessment and Plan Additional Plan ongoing dementia with no acute changes in the evaluation treatment will be continued as such Consult date: 09/04/20 Time Seen: 11:00 HPI: Erwin Leggett is a 65 year old male admitted to the hospital for the complaints of confusion. Patient is a shelter resident and was sent to the hospital for the complaints of change in mental status along with the frequent falls evaluation included a CT scan of the head which documented no bleed or space-occupying lesions, chest x-ray with mild atelectasis in the right lower lung zones, and normal routine blood studies with hemoglobin of 12.3 WBC is 5.3 platelet count though low that is 94 INR 1.0 gradually improving BUN and creatinine urine negative and valproic acid level of 62.8 which is within therapeutic range Review of Systems Review of Systems: All systems reviewed & are unremarkable except as noted in HPI and below PMFSH Past Medical History Medical History Anxiety Bipolar 1 disorder Depression Hyperlipidemia Hypertension Surgical History Surgical History No pertinent past surgical history Social History Social History Social History: Resides at [facility]. 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 Smoking status: Former smoker Second hand tobacco smoke exposure: Yes Alcohol intake: never Substance use: never Gender identity (if verbalized by the patient): Male Spiritual care concerns: No Meds Home Medications and Allergies Home Medications Medication Instructions Recorded Confirmed Type amitriptyline 100 mg PO DAILY 02/10/20 09/02/20 History atorvastatin 20 mg PO DAILY 02/10/20 09/02/20 History bupropion HCl 150 mg PO BID 02/10/20 09/02/20 History duloxetine 60 mg PO BID 02/10/20 09/02/20 History gabapentin 100 mg PO TID 02/10/20 09/02/20 History mirtazapine 45 mg PO DAILY 02/10/20 09/02/20 History montelukast 10 mg PO DAILY 02/10/20 09/02/20 History tamsulosin 0.4 mg PO DAILY 02/10/20 09/02/20 History divalproex 500 mg PO BID 09/02/20 09/02/20 History hydrocodone-acetaminophen 1 tablet PO BID PRN 09/02/20 09/02/20 History meloxicam 7.5 mg PO DAILY 09/02/20 09/02/20 History pantoprazole 40 mg PO DAILY 09/02/20 09/02/20 History Allergies Allergy/AdvReac Type Severity Reaction Status Date / Time prednisone Allergy Swelling Verified 09/01/20 19:04 Vital Signs Vital Signs - 24 hr 09/03/20 20:00 09/03/20 21:15 09/04/20 00:00 Temperature 36.0 C L Pulse Rate 90 79 84 Respiratory Rate 16 Blood Pressure 125/76 Pulse Oximetry 99 09/04/20 04:00 09/04/20 05:57 09/04/20 09:13 Temperature 36.5 C Pulse Rate 93 84 107 H Respiratory Rate 20 Blood Pressure 130/82 Pulse Oximetry 96 09/04/20 12:00 09/04/20 16:00 09/04/20 16:17 Temperature 36.1 C L Pulse Rate 90 93 93 Respiratory Rate 14 Blood Pressure 145/85 H Pulse Oximetry 95 Exam Narrative: Exam Narrative: on examination he was awake alert cooperative in no obvious acute distress head was normocephalic with no cranial bruit ear nose throat examination was normal neck was supple with no cervical bruit no thyromegaly no lymphadenopathy heart was regular with no murmur lungs were clear without crepitations or rhonchi abdomen is soft with no organomegaly as mentioned by the physician he she he was mildly tender mostly in the lower back belly neurological examination revealed him to have a extraocular muscles full with no nystagmus facial sensation intact face symmetrical tongue midline uvula midline motor examination revealed him to have generally decreased strength with sluggish reflexes downgoing plantar responses though he was oriented to himself and being in the hospital Results Labs CBC & Chem 7: 09/04/20 05:34 09/04/20 0
[2020-09-07 19:40] LABS: Platelet Ab,Indirect (IgA) NEGATIVE (NEGATIVE); Platelet Ab,Indirect (IgG) NEGATIVE (NEGATIVE); Platelet Ab,Indirect (IgM) NEGATIVE (NEGATIVE)
== END 2020-09-04 21:00 ==
LOC: ANHED 23:17 → ANH3MED 23:33
PROVIDERS: Physician Assistant; Admitting Provider Internal Medicine; Emergency Provider Emergency Medicine; PCP Internal Medicine; Visit Provider Family Medicine
DX: R41.82 Altered mental status, unspecified (principal); N17.9 Acute kidney failure, unspecified; R33.9 Retention of urine, unspecified; I12.9 Hypertensive chronic kidney disease with stage 1 through stage 4 chronic kidney disease, or unspecified chronic kidney disease; D69.6 Thrombocytopenia, unspecified; E78.5 Hyperlipidemia, unspecified; F41.8 Other specified anxiety disorders; F03.90 Unspecified dementia, unspecified severity, without behavioral disturbance, psychotic disturbance, mood disturbance, and anxiety; N18.9 Chronic kidney disease, unspecified; R29.6 Repeated falls; Z66 Do not resuscitate; Z87.891 Personal history of nicotine dependence
CPT/HCPCS: 36415; 36600; 70450; 71046; 80048; 80053; 80076; 81001; 82140; 82607; 82746; 82805; 84443; 84484; 85025; 85027; 85055; 85610; 85730; 86022; 93005; 96360; 96361; 96372; 99285; A9270; G0378; G0379; J1644; J7030

== ENCOUNTER 2020-11-10 08:12 | Emergency (ER) | payer MEDICARE, MEDICAID, SELFPAY ==
--- NOTE | 2020-11-10 | ECG_ITS ---
Measurements Intervals Bob White Rate: 89 P: 54 SD: 203 QRS: -78 QRSD: 169 T: 25 QT: 404 QTc: 494 Interpretive Statements SINUS RHYTHM RIGHT BUNDLE BRANCH BLOCK LEFT ANTERIOR FASCICULAR BLOCK ABNORMAL ECG Electronically Signed On 11-10-2020 14:34:01 CDT by Cecil Boothe D.O.
--- NOTE | ~2020-11-10 | XR_ITS ---
EXAMINATION: XR hand RT min 3V DATE: 11/10/2020 11:08 INDICATION: Right hand and wrist pain post fall TECHNIQUE: 1. Posteroanterior, ulnar deviation, oblique, and lateral views of the right wrist were obtained. 2. Dorsal palmar, oblique and lateral views of the right hand were obtained. COMPARISON: None. FINDINGS: Alignment of the right hand and wrist are normal. No fracture identified. Mild osteoarthritis at the first metacarpophalangeal and a few distal interphalangeal joints. Bone islands at the radial styloi d process and at the head of the third middle phalanx. No focal soft tissue swelling. IMPRESSION: 1. No acute osseous abnormality at the right hand or wrist. Reviewed, dictated and finalized at location A.
--- NOTE | ~2020-11-10 | XR_ITS ---
EXAMINATION: XR chest 2V EXAM DATE: 11/10/2020 08:34 INDICATION: Weakness and dizziness. TECHNIQUE: Portable AP frontal chest x-ray was obtained. Comparison is made to prior examination from 09/01/2020. FINDINGS: The lungs are clear. There are no pleural effusions. The cardiomediastinal silhouette is within normal limits. There is no pneumothorax suspected. The bones and soft tissues are unremarkab le. IMPRESSION: No acute cardiopulmonary findings. Reviewed, dictated and finalized at location B.
--- NOTE | ~2020-11-10 | XR_ITS ---
EXAMINATION: XR hip BI 2V w AP pelvis DATE: 11/10/2020 11:08 INDICATION: Low back pain post fall TECHNIQUE: Anteroposterior view of the pelvis and anteroposterior and frog-leg lateral views of the l eft hip and anteroposterior and frog-leg lateral views of the right hip and were obtained. COMPARISON: CT dated 02/10/2020 FINDINGS: Alignment is normal. No fracture. Mild bilateral hip and sacroiliac osteoarthritis. Moderate osteoart hritis at the right L5-S1 facet joint. Otherwise mild lower lumbar facet osteoarthritis. A few phlebo liths in the left hemipelvis. Atherosclerotic calcifications in the pelvis and right inguinal region. IMPRESSION: 1. Mild bilateral hip osteoarthritis. No acute osseous abnormality. Reviewed, dictated and finalized at location A.
--- NOTE | ~2020-11-10 | CT_ITS ---
EXAMINATION: CT lumbar spine wo supriya EXAM DATE: 11/10/2020 10:47 INDICATION: Low back pain, fall . TECHNIQUE: Spiral CT lumbar spine was performed without contrast. Axial, coronal and sagittal images of the lumbar spine were reviewed. The dose-length product (DLP) for this examination was 1218.65 mGy -cm. The exposure was tailored according to patient size (auto mA exposure control), and iterative r econstruction (ASIR) was used as additional dose reduction technique. There is no prior study for co mparison. FINDINGS: Sacroiliac joints intact. There is no evidence of acute lumbar fracture. There is no disc space wid ening or traumatic vertebral body subluxation suspected. Paraspinal soft tissue is unremarkable. Mi ld to moderate lumbar spondylosis. Incompletely imaged exophytic right renal lesion, imaged portion consistent with cyst. A detailed level by level evaluation of spondylosis can be added as addendum i f requested. IMPRESSION: 1. No acute lumbar findings. 2. Mild to moderate spondylosis. Reviewed, dictated and finalized at location B.
--- NOTE | ~2020-11-10 | XR_ITS ---
EXAMINATION: XR hand RT min 3V DATE: 11/10/2020 11:08 INDICATION: Right hand and wrist pain post fall TECHNIQUE: 1. Posteroanterior, ulnar deviation, oblique, and lateral views of the right wrist were obtained. 2. Dorsal palmar, oblique and lateral views of the right hand were obtained. COMPARISON: None. FINDINGS: Alignment of the right hand and wrist are normal. No fracture identified. Mild osteoarthritis at the first metacarpophalangeal and a few distal interphalangeal joints. Bone islands at the radial styloid process and at the head of the third middle phalanx. No focal soft tissue swelling. IMPRESSION: 1. No acute osseous abnormality at the right hand or wrist. Reviewed, dictated and finalized at location A.
--- NOTE | ~2020-11-10 | CT_ITS ---
EXAMINATION: CT brain wo con EXAM DATE: 11/10/2020 10:47 INDICATION: Fall, injury. Headache. Low back pain. TECHNIQUE: Spiral CT of the head was performed without contrast. Axial, coronal and sagittal images were reviewed. The dose-length product (DLP) for this examination was 681.00 mGy-cm. The exposure w as tailored according to patient size, and iterative reconstruction (ASIR) was used as additional dos e reduction technique. Comparison is made to prior examination from 09/01/2020. FINDINGS: There is no acute intraparenchymal hemorrhage. No evidence of intraparenchymal brain mass lesion. No evidence of acute infarction. There is no mass effect or midline shift. The ventricles are normal in size. There are no extra-axial collections. There are no acute calvarial fractures. T he orbits are unremarkable. Soft tissue is unremarkable. The visualized sinuses and mastoid air mehrdad ls are well aerated. IMPRESSION: 1. No acute intracranial findings. Reviewed, dictated and finalized at location B.
[2020-11-10 08:08] VITALS: BP 155/100; PULSE 90; RESP 12; TEMP 36.9; O2SAT 96
[2020-11-10 08:16] VITALS: PULSE 90
[2020-11-10 09:28] LABS: Basophils Percent Auto 0.9 % (0.2-1.2); Eosinophils Absolute Auto 0.4 K/mm3 (0-0.3); Eosinophils Percent Auto 8.7 % (0-4.4); Hematocrit 41.7 % (42.0-52.0); Hemoglobin 13.5 g/dL (14.0-18.0); Immature Granulocyte Absolute 0.02 K/mm3 (0.00-0.031); Immature Granulocyte Percent A 0.4 % (0-0.5); Mean Corpuscular HGB Conc 32.4 g/dl (32-36); Mean Corpuscular Hemoglobin 31.4 pg (26-34); Mean Platelet Volume 11.8 fl (7.4-10.4); Monocytes Absolute Auto 0.3 K/mm3 (0.1-0.6); Monocytes Percent Auto 7.4 % (2.6-8.5); Neutrophils Absolute Auto 2.6 K/mm3 (1.3-6.7); Neutrophils Percent Auto 56.6 % (45.5-73.1); Platelet Count Result 102 k/mm3 (150-375); Red Cell Distribution Width 14.7 % (11.5-14.5); White Blood Count 4.6 K/mm3 (4.5-10.0)
[2020-11-10 10:00] LABS: Alanine Aminotransferase 18 U/L (4-50); Albumin Level 4.2 g/dL (3.5-5.1); Alkaline Phosphatase 62 U/L (38-126); Anion Gap 9 mmol/L (8-16); Aspartate Amino Transferase 20 U/L (17-59); Bilirubin,Total 0.4 mg/dL (0.2-1.3); Blood Urea Nitrogen 31 mg/dL (9-20); Calcium 9.3 mg/dL (8.4-10.2); Carbon Dioxide 28 mmol/L (22-30); Chloride 105 mmol/L (98-107); Estimated CRCL calculation 50 ml/min; Estimated Glomerular Filt Rate 51; Glucose 84 mg/dL (65-110); Potassium 4.6 mmol/L (3.4-5.0); Sodium 142 mmol/L (137-145)
[2020-11-10] MEDS: SODIUM CHLORIDE 0.9% IV 500 ML 999 ML IV CONT (10:14)
--- NOTE | 2020-11-10 10:17 | ED.WEAKNESS ---
HPI - Weakness General Chief complaint: Weakness Stated complaint: WEAKNESS,DIZZY Time Seen by Provider: 11/10/20 09:20 Source: patient Mode of arrival: EMS Limitations: other (poor historian) History of Present Illness HPI Narrative: This is a 65-year-old male that presents to the emergency department for generalized weakness. Reports he has not been feeling well today. Reports he tried to get up and fell to the floor. Reports catching himself with his right wrist. Reports pain to the hand and wrist. Also reports low back pain. Denies hitting his head or loss of consciousness. Reports he has been having dysuria over the last week. Also reports mild shortness of breath. Denies fever, chest pain, abdominal pain, vomiting, hematuria, or numbness. Related Data Home Medications Medication Instructions Recorded Confirmed amitriptyline 100 mg PO DAILY 02/10/20 09/02/20 atorvastatin 20 mg PO DAILY 02/10/20 09/02/20 bupropion HCl 150 mg PO BID 02/10/20 09/02/20 duloxetine 60 mg PO BID 02/10/20 09/02/20 gabapentin 100 mg PO TID 02/10/20 09/02/20 mirtazapine 45 mg PO DAILY 02/10/20 09/02/20 montelukast 10 mg PO DAILY 02/10/20 09/02/20 tamsulosin 0.4 mg PO DAILY 02/10/20 09/02/20 divalproex 500 mg PO BID 09/02/20 09/02/20 hydrocodone-acetaminophen 1 tablet PO BID PRN 09/02/20 09/02/20 meloxicam 7.5 mg PO DAILY 09/02/20 09/02/20 pantoprazole 40 mg PO DAILY 09/02/20 09/02/20 Allergies Allergy/AdvReac Type Severity Reaction Status Date / Time prednisone Allergy Swelling Verified 11/10/20 08:26 Review of Systems Review of Systems: CONSTITUTIONAL: Denies fever CARDIOVASCULAR: Denies chest pain, or edema. RESPIRATORY: Reports dyspnea. Denies cough GASTROINTESTINAL: Denies abdominal pain, nausea, vomiting GENITOURINARY: Reports dysuria. Denies hematuria. MUSCULOSKELETAL: Reports back pain, joint pain, and myalgia. NEUROLOGIC: Reports generalized weakness. All systems reviewed & are unremarkable except as noted in HPI and below PMFSH Past Medical History Medical History Anxiety Bipolar 1 disorder Depression Hyperlipidemia Hypertension Surgical History Surgical History No pertinent past surgical history Social History Social History Social History: Resides at [facility]. 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 Smoking status: Former smoker Second hand tobacco smoke exposure: Yes Alcohol intake: never Substance use: never Gender identity (if verbalized by the patient): Male Spiritual care concerns: No Exam Narrative: GENERAL: Well-appearing, well-nourished, and in no acute distress. HEAD: Normocephalic, atraumatic. EYES: PERRLA and EOMI. ENT: Nares clear, no rhinorrhea or epistaxis. Mucous membranes dry. Oropharynx without tonsillar hypertrophy exudate or other lesions. Bilateral TMs pearly escobedo non-bulging NECK: Supple. No adenopathy or masses. No midline cervical spine tenderness CHEST: Clear to auscultation. No respiratory distress. No wheezes rales or rhonchi HEART: Regular rate and rhythm. No murmur heard. Normal peripheral pulses. ABDOMEN: Soft, nontender, nondistended, normal active bowel sounds. BACK: No midline thoracic spine tenderness. Tender to palpation of midline lumbar spine EXTREMITIES: Normal range of motion. No edema. Strength equal in bilateral upper and lower extremities (4/5) SKIN: Warm, dry, no rash. NEURO: No focal deficits. Alert and oriented x3. CN II-XII grossly intact PSYCH: Normal mood and affect Course Vital Signs Vital signs: Vital Signs Temperature 98.4 F 11/10/20 08:08 Pulse Rate 90 11/10/20 08:08 Respiratory Rate 12 11/10/20 08:08 Blood Pressure 155/100 H 11/10/20 08:08 Pulse Oximetry 96 11/10/20 08:08 Temperature 98.4 F 11/10/20 08:08 Pulse Rate 89 11/10/20 11:22
[2020-11-10 11:22] VITALS: BP 129/87; PULSE 89; RESP 14; O2SAT 98
[2020-11-10 12:08] LABS: Add Urine Microscopic? NO; Appearance Urine Clear (Clear); Bilirubin Urine Negative (Negative); Blood Urine Negative (Negative); Color Urine Yellow (Yellow); Glucose Urine UA Negative (Negative); Ketones Urine Negative (Negative); Leukocyte Esterase Ur Negative LEU/UL (Negative); Nitrate Urine Negative (Negative); Protein Urine Negative (Negative); Urobilinogen Urine Negative mg/dL (<2.0)
--- NOTE | 2020-11-10 13:15 | PC.NURSE ---
made contact with [facility] to transfer pt back to [facility] in [place]. [facility] is on [facility] and is waiting for their last call to be cleared to take pt home.
[2020-11-10 13:51] VITALS: BP 136/87; PULSE 85; RESP 18; O2SAT 98
== END 2020-11-10 13:52 ==
PROVIDERS: Emergency Provider Emergency Medicine; PCP Internal Medicine
DX: R53.1 Weakness (principal); E78.5 Hyperlipidemia, unspecified; I10 Essential (primary) hypertension; F31.9 Bipolar disorder, unspecified; F41.9 Anxiety disorder, unspecified; Z66 Do not resuscitate; Z87.891 Personal history of nicotine dependence; M47.816 Spondylosis without myelopathy or radiculopathy, lumbar region; M16.0 Bilateral primary osteoarthritis of hip; I45.2 Bifascicular block; W18.39XA Other fall on same level, initial encounter
CPT/HCPCS: 36415; 51701; 70450; 71046; 72131; 73110; 73130; 73521; 80053; 81003; 85025; 93005; 96361; 96365; 99284; J0131; J7040

== ENCOUNTER 2021-10-22 17:29 | Emergency (ER) | payer MEDICARE, MEDICAID, SELFPAY ==
--- NOTE | ~2021-10-22 | XR_ITS ---
XR elbow LT min 3V 10/22/2021 18:22 INDICATION: Bursitis versus abscess. PROCEDURE: 4 views left elbow COMPARISON: No prior studies for comparison. FINDINGS: Fracture, dislocation or subluxation is not identified. No joint effusion. There is moderat e soft tissue swelling overlying the olecranon process. No foreign bodies are identified. IMPRESSION: 1: Moderate soft tissue swelling overlying the olecranon process. Reviewed, dictated and finalized at location A.
[2021-10-22 17:31] VITALS: BP 142/99; PULSE 94; RESP 18; TEMP 36.4; O2SAT 100
--- NOTE | 2021-10-22 17:59 | ED.SKABFB ---
HPI - Skin/Abscess/Foreign Bdy General Chief complaint: Skin/Abscess/Foreign Body Stated complaint: Bumb on L elbow Time Seen by Provider: 10/22/21 17:50 Source: patient Mode of arrival: EMS Limitations: no limitations History of Present Illness HPI narrative: Patient is a 66 y/o male who presents to the ED via EMS from [facility], with report of swelling to his L elbow X 1 week. Patient reports he first noticed the swelling around 1 week ago. He denies much change in the swelling over the past week. Denies any significant pain, but does note tenderness if he rests his elbow on something. Denies any fevers, chills, numbness/tingling, recent illness, any known injury. He has not tried any therapies for this. Related Data Home Medications Medication Instructions Recorded Confirmed amitriptyline 100 mg tablet 100 mg PO DAILY 02/10/20 09/02/20 atorvastatin 20 mg tablet 20 mg PO DAILY 02/10/20 09/02/20 bupropion HCl 150 mg tablet,12 hr 150 mg PO BID 02/10/20 09/02/20 sustained-release duloxetine 60 mg capsule,delayed 60 mg PO BID 02/10/20 09/02/20 release gabapentin 100 mg capsule 100 mg PO TID 02/10/20 09/02/20 mirtazapine 45 mg tablet 45 mg PO DAILY 02/10/20 09/02/20 montelukast 10 mg tablet 10 mg PO DAILY 02/10/20 09/02/20 tamsulosin 0.4 mg capsule 0.4 mg PO DAILY 02/10/20 09/02/20 divalproex 500 mg tablet,delayed 500 mg PO BID 09/02/20 09/02/20 release hydrocodone 5 mg-acetaminophen 325 1 tablet PO BID PRN Pain 09/02/20 09/02/20 mg tablet meloxicam 7.5 mg tablet 7.5 mg PO DAILY 09/02/20 09/02/20 pantoprazole 40 mg tablet,delayed 40 mg PO DAILY 09/02/20 09/02/20 release Allergies Allergy/AdvReac Type Severity Reaction Status Date / Time prednisone Allergy Swelling Verified 10/22/21 17:48 aspirin AdvReac Abdominal Verified 10/22/21 17:48 Pain Review of Systems Review of Systems: CONSTITUTIONAL: Denies fever, chills, or sweats. SKIN: Reports swelling to L elbow. MUSCULOSKELETAL: Denies significant pain to L elbow. NEUROLOGIC: Denies tingling, numbness, or weakness. All systems reviewed & are unremarkable except as noted in HPI and below PMFSH Past Medical History Medical History Anxiety Bipolar 1 disorder Depression Hyperlipidemia Hypertension Surgical History Surgical History No pertinent past surgical history Social History Social History Social History: Resides at [facility]. 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 Smoking status: Former smoker Second hand tobacco smoke exposure: Yes Alcohol intake: never Substance use: never Gender identity (if verbalized by the patient): Male Spiritual care concerns: No Exam Narrative: GENERAL: Well appearing, well-nourished, non-toxic, in no acute distress. HEAD: Normocephalic, atraumatic. NECK: Supple. No adenopathy, no masses. RESPIRATORY: Airway patent, respirations nonlabored. CARDIOVASCULAR: Regular rate and rhythm without murmurs, rubs, or gallops. Radial pulses 2+ and equal bilaterally. MUSCULOSKELETAL: Moves all extremities. Full extension ROM of L elbow, minimal decreased flexion ROM of L elbow due to swelling. Diffuse localized soft area of swelling to L olecranon with the appearance of olecranon bursitis. Small area of green healing ecchymosis in center of area of swelling. No lacerations/abrasions, no head to swelling. No drainage. No redness. No warmth. Minimal tenderness with palpation of L elbow. SKIN: Warm, dry, normal color. No rashes. NEURO: A&O X3. Speech clear. Cranial nerves II-XII grossly intact. Steady gait. No ataxic movements. PSYCHIATRIC: Appropriate mood and affect. Normal interaction. Course Vital Signs Vital signs: Vital Signs Temperature 97.5 F L 10/22/21 17:31 Pulse Rate 94 10/22/21 17:31 Respirat
[2021-10-22 18:37] LABS: Basophils Percent Auto 0.4 % (0.2-1.2); Eosinophils Absolute Auto 0.1 K/mm3 (0-0.3); Eosinophils Percent Auto 2.7 % (0-4.4); Hematocrit 39.4 % (42.0-52.0); Hemoglobin 12.8 g/dL (14.0-18.0); Immature Granulocyte Absolute 0.02 K/mm3 (0.00-0.031); Immature Granulocyte Percent A 0.4 % (0-0.5); Lymphocytes Absolute Auto 1.54 K/mm3 (0.9-3.2); Lymphocytes Percent Auto 31.9 % (18.3-44.2); Mean Corpuscular HGB Conc 32.5 g/dl (32-36); Mean Corpuscular Hemoglobin 31.4 pg (26-34); Mean Corpuscular Volume 96.6 fl (80-100); Mean Platelet Volume 11.8 fl (7.4-10.4); Monocytes Absolute Auto 0.5 K/mm3 (0.1-0.6); Monocytes Percent Auto 9.3 % (2.6-8.5); Neutrophils Absolute Auto 2.7 K/mm3 (1.3-6.7); Neutrophils Percent Auto 55.3 % (45.5-73.1); Platelet Count Result 107 k/mm3 (150-375); Red Blood Count 4.08 M/mm3 (4.6-6.20); Red Cell Distribution Width 14.1 % (11.5-14.5); White Blood Count 4.8 K/mm3 (4.5-10.0)
[2021-10-22 18:50] LABS: CRP < 0.5 mg/dL (<1.0)
[2021-10-22 19:18] LABS: Erythrocyte Sedimentation Rate 15 mm/hr (0-20)
--- NOTE | 2021-10-22 19:20 | PC.NURSE ---
spoke with nino dumas [place], report given
== END 2021-10-22 19:40 ==
PROVIDERS: Physician Assistant; Emergency Provider Emergency Medicine; PCP Internal Medicine
DX: M70.22 Olecranon bursitis, left elbow (principal); E78.5 Hyperlipidemia, unspecified; I10 Essential (primary) hypertension; F41.9 Anxiety disorder, unspecified; F31.9 Bipolar disorder, unspecified; Z87.891 Personal history of nicotine dependence; Z66 Do not resuscitate
CPT/HCPCS: 36415; 73080; 85025; 85652; 86140; 99283

== ENCOUNTER 2022-04-20 08:52 | Outpatient (CLI) | payer MEDICARE, SELFPAY ==
--- NOTE | 2022-04-20 | ECHO_ITS ---
Patient Info Name: Erwin Leggett Age: 67 years : 1955 Gender: Male Ht: 74 in Wt: 210 lbs BSA: 2.24 m2 HR: 84 bpm BP: 129 / 85 mmHg Heart Rhythm: Sinus Rhythm Technical Quality: Poor Exam Date: 04/20/2022 9:11 AM Exam Location: [facility] Pulmonary Patient Status: Outpatient Admit Date: 04/20/2022 Staff Ordering Physician: Reilly Maldonado MD Fittings Finisher: Berta Youngblood RDCS Attending Provider: Reilly Maldonado MD Exam Type: CA echo doppler color flow Study Info Indications Z72.0 - TOBACCO DEPENDENCE CONTINUOUS I45.2 - RBBB WITH LEFTANTERIOR FASCICULAR BLOCK Complete two-dimensional, color flow and Doppler transthoracic echocardiogram is performed. Reason for Poor Study: poor echocardiographic windows Summary 1. Complete two-dimensional, color flow and Doppler transthoracic echocardiogram is performed. 2. Left ventricular chamber dimension is normal. 3. Left ventricular systolic function is normal, estimated at 60-65%. 4. The left ventricular diastolic function is grade I diastolic dysfunction. 5. Right ventricular chamber dimension is mildly enlarged. 6. Right ventricular systolic function is normal. 7. There is trace mitral valve regurgitation. 8. There is mild tricuspid valve regurgitation. 9. The aortic root size at the sinus of Valsalva is mildly dilated. Left Ventricle Left ventricular chamber dimension is normal. Left ventricular systolic function is normal, estimated at 60-65%. There is no increased left ventricular wall thickness. The left ventricular diastolic function is grade I diastolic dysfunction. Right Ventricle Right ventricular chamber dimension is mildly enlarged. Right ventricular systolic function is normal. Left Atria Left atrial chamber dimension is normal. Right Atria Right atrial chamber dimension is normal. Atrial Septum Intact interatrial septum visualized by color flow imaging. Aortic Valve The aortic valve is not well visualized. There is no aortic valve stenosis. There is no aortic valve regurgitation. Pulmonic Valve The pulmonic valve is not well visualized. Mitral Valve The mitral valve has normal leaflets. There is no mitral valve stenosis. There is trace mitral valve regurgitation. Tricuspid Valve There is no significant tricuspid valve stenosis. There is mild tricuspid valve regurgitation. Pericardium/Pleural The pericardium appears epicardial fat pad. There is no pericardial effusion. Inferior Vena Cava Normal inferior vena cava with >50% collapse upon inspiration consistent with normal right atrial pressure, 3 mmHg. Aorta The aortic root size at the sinus of Valsalva is mildly dilated. Left Ventricular Outflow Tract Name Value Normal LVOT 2D LVOT Diameter 2.2 cm LVOT Doppler LVOT Peak Gradient 2 mmHg LVOT Mean Gradient 1 mmHg LVOT VTI 16 cm LVOT VTI/AV VTI Ratio 0.9 LVOT Stroke Volume 65 ml LVOT CO 4.8 l/min LVOT CI
--- NOTE | 2022-04-20 | EST_ITS ---
Patient Info Name: Erwin Leggett Age: 67 years : 1955 Gender: Male Ht: 74 in Wt: 210 lbs BSA: 2.24 m2 HR: 83 bpm BP: 139 / 87 mmHg Heart Rhythm: Sinus Rhythm Exam Date: 04/20/2022 10:00 AM Exam Location: [facility] Stress Patient Status: Outpatient Admit Date: 04/20/2022 Staff Ordering Physician: Reilly Maldonado MD Attending Provider: Reilly Maldonado MD Exercise Technologist: Jackelyn Barkley CT Nurse: JUANCHO PURVIS NP Exam Type: CA stress test treadmill Study Info Indications Z82.49 - FM HX HEART DISEASE J44.9 - COPD A treadmill exercise stress test was performed. Summary 1. Exercise capacity impaired at <6 METS[address] 2[address] No [address] ST/T wave changes with exercise. Protocol: [facility] Stress ECG Details Stage: REST Duration (min): 0 min : 53 sec Speed (mph): 0.0 Grade (%): 0 HR (bpm): 84 SBP (mmHg): 139 DBP (mmHg): 87 METS: --- Stage: REST Duration (min): 24 min : 8 sec Speed (mph): 0.0 Grade (%): 0 HR (bpm): 97 SBP (mmHg): 139 DBP (mmHg): 87 METS: --- Stage: STAGE 1 Duration (min): 1 min : 0 sec Speed (mph): 1.7 Grade (%): 10 HR (bpm): 112 SBP (mmHg): 139 DBP (mmHg): 87 METS: --- Stage: STAGE 1 Duration (min): 2 min : 0 sec Speed (mph): 1.7 Grade (%): 10 HR (bpm): 129 SBP (mmHg): 139 DBP (mmHg): 87 METS: --- Stage: STAGE 1 Duration (min): 3 min : 0 sec Speed (mph): 1.7 Grade (%): 10 HR (bpm): 132 SBP (mmHg): 151 DBP (mmHg): 72 METS: --- Stage: STAGE 2 Duration (min): 0 min : 27 sec Speed (mph): 2.5 Grade (%): 12 HR (bpm): 137 SBP (mmHg): 151 DBP (mmHg): 72 METS: --- Stage: RECOVERY Duration (min): 0 min : 32 sec Speed (mph): 0.0 Grade (%): 0 HR (bpm): 138 SBP (mmHg): 151 DBP (mmHg): 72 METS: --- Stage: RECOVERY Duration (min): 1 min : 32 sec Speed (mph): 0.0 Grade (%): 0 HR (bpm): 121 SBP (mmHg): 151 DBP (mmHg): 72 METS: --- Stage: RECOVERY Duration (min): 2 min : 32 sec Speed (mph): 0.0 Grade (%): 0 HR (bpm): 106 SBP (mmHg): 151 DBP (mmHg): 78 METS: --- Stage: RECOVERY Duration (min): 3 min : 27 sec Speed (mph): 0.0 Grade (%): 0 HR (bpm): 100 SBP (mmHg): 151 DBP (mmHg): 78 METS: --- Rest HR: 97 bpm Peak HR: 141 bpm Rest Sys BP: 139 mmHg Peak Sys BP: 151 mmHg Max Pred HR: 155 bpm % Max Pred HR: 91 % Target HR: 132 bpm Max RPP: 21,291 bpm*mmHg Loyola Score: -18 Target HR Summary: Patient's target heart rate was achieved BP Response: Normal blood pressure response Max ST Seg Deviation: 4.30 mm Total Time: 3 min : 27 sec Rest Smith BP: 87 mmHg Peak Smith BP: 78 mmHg Angina Score: None Total METS: 5.3 Resting ECG Sinus rhythm. Right bundle branch block. Baseline ST abnormality due to RBBB. Stress ECG Sinus tachycardia. Right bundle branch block. No abnormal ST/T wav
--- NOTE | ~2022-04-20 | CT_ITS ---
EXAMINATION: CT lung screening DATE: 04/20/2022 11:03 INDICATION: Personal history of nicotine dependence, current smoker with 30 pack year history TECHNIQUE: Computed tomography (CT) of the chest was performed without intravenous contrast. The dose -length product (DLP) was 106.43 mGy-cm. Automated exposure control and iterative reconstruction tech [employer] were employed. COMPARISON: None FINDINGS: There is mild emphysema no suspicious pulmonary nodules are identified. There is atelectasi s of the lingula. No pleural effusion or pneumothorax. The lungs are free of acute airspace opacities . No pathologically enlarged thoracic lymph nodes are identified. The heart size is normal. There is mild thoracic spondylosis. IMPRESSION: 1. Lung-RADS category 1: Negative. Continue annual screening with noncontrast low-dose chest CT in 12 months. Reviewed, dictated and finalized at location L. [employer] IMPRESSION: 1. Lung-RADS category 1: Negative. Continue annual screening with noncontrast l ow-dose chest CT in 12 months.
--- NOTE | 2022-04-20 12:42 | WPDPFTINT ---
PFT Procedure Performed PFT Procedure Performed Plethysmography (Lung Vol) Diffusing Cap (DLCO) Flow Vol Loop Spirometry w/o Bronchodil PFT Interpretation This is a pulmonary function test with spirometry, plethysmography and diffusing capacity. The test was performed and results interpreted in accordance with the 2019 and 2005 ATS/ERS Task Force guidelines respectively using the Global Lung Function Initiative-2012 reference equations. Patient demonstrated good effort and cooperation. Reproducibility criteria were met. The quality of the spirometry maneuver was Grade E. of note the patient was unable to perform more than 1 spirometry trial due to severe lightheadedness and near-syncope. Findings: Spirometry: There is decreased expiratory flow at all lung volumes with concave expiratory flow tracing. The contour the inspiratory flow tracing is normal. The FVC is 3.82 L, 75% predicted. The FEV1 is 2.42 L, 63% predicted. The FEV1: FVC ratio 63%. Plethysmography: The total lung capacity is 8.11 L, 104% predicted. The functional residual capacity is 5.26 L, 126% predicted. The residual volume is 4.01 L, 156% predicted. Diffusing capacity: The diffusing capacity unadjusted for hemoglobin and carboxyhemoglobin is 15.0, 52% predicted. The diffusing capacity adjusted for alveolar volume is 2.49, 64% predicted. Impression: The patient was only able to perform one spirometry maneuver so reproducibility has not been confirmed. There is a moderate obstructive abnormality. The increase in residual volume is consistent with air trapping from an obstructive abnormality. The diffusing capacity unadjusted for hemoglobin is moderately decreased and remains mildly decreased when adjusted for alveolar volume. There are no prior studies for comparison
--- NOTE | 2022-05-05 14:13 | HOLTER_ITS ---
This report was moved to the correct visit, [id number] on 05/06/2022. Original report was signed by Hao Baugh 05/05/2022 1712. Holter/Event Monitor Holter/Event Monitor Date of procedure: 04/20/22 Holter/Event Procedure: 24 Hr Holter Monitor Diagnosis: Right bundle branch block Indications: right bundle branch block Image/Tracing Quality: good Finding: date of interpretation 05/05/2022 a total of 23 hours and 59 minutes recorded and analyzed Underlying normal sinus rhythm/ sinus tachycardia with heart rate variability between 63 and 171 beats per minute with an average heart rate of 97 beats per minute. Twenty-seven isolated premature ventricular contractions but without complex ventricular arrhythmia Low frequency supraventricular ectopy totaling 133 beats. These were all isolated premature atrial contractions Longest RR interval was 1.3 seconds. No complex arrhythmia, heart block, atrial fibrillation or pauses. Conclusion: 1. underlying normal sinus rhythm/ sinus tachycardia with mildly elevated average heart rate of 97 beats per minute 2. Low-frequency ventricular and supraventricular ectopy all in isolated single be form 3. No complex arrhythmia, heart block, pauses or atrial fibrillation 4. No symptoms recorded This report may have been done utilizing a voice recognition system. Attempts have been made to correct errors. However, there may be uncorrected grammatical, spelling, and recognition errors present. Report Initialized date/time: Hao Baugh MD 05/05/221416 Electronically signed by: Hao Baugh MD 05/05/22 141 [facility]
== END 2022-04-20 08:53 | disposition home or self-care (01) ==
PROVIDERS: PCP Internal Medicine; Visit Provider Internal Medicine Cardiovascular Disease
DX: J44.9 Chronic obstructive pulmonary disease, unspecified (principal); J11.1 Influenza due to unidentified influenza virus with other respiratory manifestations; Z82.49 Family history of ischemic heart disease and other diseases of the circulatory system; I10 Essential (primary) hypertension; I45.2 Bifascicular block; R94.2 Abnormal results of pulmonary function studies; Z87.891 Personal history of nicotine dependence
CPT/HCPCS: 71271; 93017; 93225; 93226; 93306

== ENCOUNTER 2022-06-29 16:25 | Emergency (ER) | payer MEDICARE, MEDICAID, SELFPAY ==
--- NOTE | ~2022-06-29 | XR_ITS ---
XR chest 2V 06/29/2022 17:30 Indication: Altered mental status. Weakness. Procedure: AP and lateral views of the chest Comparison: Comparison to multiple prior studies sequentially, with oldest reviewed study dated 01/13. Findings: Heart size normal. No focal air space disease, pulmonary edema, pleural effusion or suspect ed pneumothorax. There are healed right rib fractures. The lungs are hyperinflated which is consisten t with, but not diagnostic of chronic obstructive pulmonary disease. Impression: 1: No acute cardiopulmonary disease. Reviewed, dictated and finalized at location A. Impression: 1: No acute cardiopulmonary disease.
--- NOTE | ~2022-06-29 | XR_ITS ---
XR lumbar spine 2-3V 06/29/2022 20:03 Indication: Midline tenderness. Back pain. Procedure: 3 views lumbar spine Comparison: No prior studies for comparison. Findings: There is mild superior endplate compression deformity of L3 which appears chronic. There is mild disc narrowing at L2-3 and L3-4. There is facet hypertrophy at L5-S1. Pedicles intact. No acute fracture or traumatic malalignment. Sacral foramen are symmetric. There is mild dextrocurvature of t he lumbar spine. Impression: 1: Mild superior endplate compression deformity of L3, likely chronic. 2: Moderate lumbar spondylosis. Reviewed, dictated and finalized at location A. Impression: 1: Mild superior endplate compression deformity of L3, likely chronic. 2: Moderate lumbar spondylosis.
--- NOTE | ~2022-06-29 | CT_ITS ---
EXAMINATION: CT brain wo con DATE: 06/29/2022 17:25 INDICATION: Altered mental status. Headache. TECHNIQUE: Computed tomography (CT) of the head was performed without intravenous contrast. The dose- length product was 605.33 mGy-cm. Automated exposure control and iterative reconstruction technique w ere employed. COMPARISON: CT dated 11/10/2020 FINDINGS: Mild generalized atrophy. No ventriculomegaly or midline shift. Basilar cisterns are patent . Mild mucosal thickening of the maxillary, ethmoid, sphenoid and left frontal sinuses. Mastoids are pneumatized. No depressed skull fractures. There are scattered mild periventricular and subcortical w ya matter changes, most likely related to small vessel ischemic disease (microangiopathy). IMPRESSION: 1. No acute intracranial abnormality. 2: Moderate sinusitis. Reviewed, dictated and finalized at location A.
[2022-06-29 16:25] VITALS: BP 135/95; PULSE 88; RESP 16; TEMP 36.6; O2SAT 96
--- NOTE | 2022-06-29 16:35 | ECG_ITS ---
Measurements Intervals [place] Rate: 88 P: 50 [place]: 170 QRS: -41 QRSD: 142 T: 17 QT: 390 QTc: 474 Interpretive Statements SINUS RHYTHM MARKED LEFT AXIS DEVIATION [QRS AXIS < -30] RIGHT BUNDLE BRANCH BLOCK [120+ ms QRS DURATION, UPRIGHT V1, 40+ ms S IN I/aVL/V4/V5/V6] COMPARED TO ECG 11/10/2020 08:15:35 NO SIGNIFICANT CHANGES Electronically Signed On 06-29-2022 18:12:18 CDT by Es Puckett M.D.
[2022-06-29 16:37] VITALS: RESP 18
[2022-06-29 16:56] LABS: Basophils Percent Auto 0.5 % (0.2-1.2); Eosinophils Absolute Auto 0.5 K/mm3 (0-0.3); Eosinophils Percent Auto 11.8 % (0-4.4); Hematocrit 34.8 % (42.0-52.0); Hemoglobin 11.3 g/dL (14.0-18.0); Immature Granulocyte Absolute 0.02 K/mm3 (0.00-0.031); Immature Granulocyte Percent A 0.5 % (0-0.5); Lymphocytes Absolute Auto 1.39 K/mm3 (0.9-3.2); Lymphocytes Percent Auto 32.1 % (18.3-44.2); Mean Corpuscular HGB Conc 32.5 g/dl (32-36); Mean Corpuscular Hemoglobin 31.7 pg (26-34); Mean Corpuscular Volume 97.5 fl (80-100); Mean Platelet Volume 11.2 fl (7.4-10.4); Monocytes Absolute Auto 0.5 K/mm3 (0.1-0.6); Monocytes Percent Auto 11.1 % (2.6-8.5); Neutrophils Absolute Auto 1.9 K/mm3 (1.3-6.7); Platelet Count Result 142 k/mm3 (150-375); Red Blood Count 3.57 M/mm3 (4.6-6.20); Red Cell Distribution Width 14.7 % (11.5-14.5); White Blood Count 4.3 K/mm3 (4.5-10.0)
[2022-06-29 17:07] LABS: Appearance Urine Clear (Clear); Bacteria Urine None Seen /hpf; Bilirubin Urine Negative (Negative); Blood Urine Negative (Negative); Color Urine Dark Yellow (Yellow); Glucose Urine UA Negative (Negative); Ketones Urine Trace mg/dL (Negative); Leukocyte Esterase Ur Negative LEU/UL (Negative); Need Manual Microscopic Reviewed; Nitrate Urine Negative (Negative); Non Pathogenic Casts 0-2; Protein Urine Trace mg/dL (Negative); Specific Grav Ur 1.035 (1.001-1.035); Squamous Epithelial Cell Urine None seen /hpf (Few); WBC Urine 0-5 /hpf; pH Urine 5.5 (5.0-9.0)
[2022-06-29 17:08] LABS: Alanine Aminotransferase 14 U/L (6-50); Albumin Level 4.3 g/dL (3.5-5.1); Alkaline Phosphatase 59 U/L (38-126); Anion Gap 9 mmol/L (8-16); Aspartate Amino Transferase 21 U/L (17-59); Bilirubin,Total 0.5 mg/dL (0.2-1.3); Blood Urea Nitrogen 26 mg/dL (9-20); Carbon Dioxide 26 mmol/L (22-30); Chloride 106 mmol/L (98-107); Estimated CRCL calculation 49 ml/min; Estimated Glomerular Filt Rate 47; Glucose 89 mg/dL (65-110); Potassium 4.2 mmol/L (3.4-5.0); Prothrombin Time 13.2 Seconds (11.1-14.7); Sodium 141 mmol/L (137-145)
[2022-06-29 17:09] LABS: Add Urine Microscopic? YES; Partial Thromboplastin Time 33.4 SECONDS (22.3-36.8)
--- NOTE | 2022-06-29 17:12 | ED.AMS ---
HPI - Altered Mental Status General Chief Complaint: Altered Mental Status Stated Complaint: ams Time Seen by Provider: 06/29/22 16:54 History of Present Illness HPI narrative: Patient is a 67-year-old male with a history of anxiety, bipolar 1 here from [facility] for multiple medical complaints. Patient states he has felt unwell for the past week. He reports generalized weakness, headache, confusion, low back pain, chest pain and fevers. Patient states that the symptoms have never occurred to him in the past. Per staff, patient is baseline A&o x 4, today he is a&o x2, which is what prompted ED evaluation. Patient is A&O 4 currently. He denies any cough, congestion, upper respiratory infectious symptoms, urinary symptoms. Related Data Home Medications Medication Instructions Recorded Confirmed amitriptyline 100 mg tablet 100 mg PO DAILY 02/10/20 09/02/20 atorvastatin 20 mg tablet 20 mg PO DAILY 02/10/20 09/02/20 bupropion HCl 150 mg tablet,12 hr 150 mg PO BID 02/10/20 09/02/20 sustained-release duloxetine 60 mg capsule,delayed 60 mg PO BID 02/10/20 09/02/20 release gabapentin 100 mg capsule 100 mg PO TID 02/10/20 09/02/20 mirtazapine 45 mg tablet 45 mg PO DAILY 02/10/20 09/02/20 montelukast 10 mg tablet 10 mg PO DAILY 02/10/20 09/02/20 tamsulosin 0.4 mg capsule 0.4 mg PO DAILY 02/10/20 09/02/20 divalproex 500 mg tablet,delayed 500 mg PO BID 09/02/20 09/02/20 release hydrocodone 5 mg-acetaminophen 325 1 tablet PO BID PRN Pain 09/02/20 09/02/20 mg tablet meloxicam 7.5 mg tablet 7.5 mg PO DAILY 09/02/20 09/02/20 pantoprazole 40 mg tablet,delayed 40 mg PO DAILY 09/02/20 09/02/20 release Allergies Allergy/AdvReac Type Severity Reaction Status Date / Time prednisone Allergy Swelling Verified 10/22/21 17:48 aspirin AdvReac Abdominal Verified 10/22/21 17:48 Pain Review of Systems Review of Systems: All systems reviewed & are unremarkable except as noted in HPI and below PMFSH Past Medical History Medical History Anxiety Bipolar 1 disorder Depression Hyperlipidemia Hypertension Surgical History Surgical History No pertinent past surgical history Social History Social History Social History: Resides at [facility]. 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 Smoking status: Former smoker Second hand tobacco smoke exposure: Yes Alcohol intake: never Substance use: never Gender identity (if verbalized by the patient): Male Spiritual care concerns: No Exam Narrative: APPEARANCE: Well appearing, no pain in distress, well-nourished. Head: Normocephalic and atraumatic. EYES: PERRLA/EOMI, conjunctivae clear NOSE: No nasal drainage EARS: External ear normal in appearance THROAT: Oropharynx is clear. Mucous membranes are moist. NECK: Supple. No adenopathy, no masses. RESPIRATORY: Airway patent, respirations nonlabored. Clear to auscultation bilaterally, no rales, rhonchi, wheezing. CARDIOVASCULAR: Regular rate and rhythm without murmurs, rubs, or gallops. ABDOMINAL: Normoactive bowel sounds. Soft, nontender, nondistended. No rebound tenderness or guarding. MUSCULOSKELETAL: Extremities are warm and well-perfused. Moves all extremities well. No edema. NEURO: Alert and oriented x 3 . SKIN: Skin is warm and dry. No rashes. PSYCHIATRIC: Normal affect/mood.. Course Vital Signs Vital signs: Vital Signs Temperature 97.8 F 06/29/22 16:25 Pulse Rate 88 06/29/22 16:25 Respiratory Rate 16 06/29/22 16:25 Blood Pressure 135/95 H 06/29/22 16:25 Pulse Oximetry 96 06/29/22 16:25 Oxygen Delivery Room Air 06/29/22 16:25 Temperature 97.8 F 06/29/22 16:25 Pulse Rate 96 06/29/22 18:12 Respiratory Rate 17 06/29/22 18:12 Blood Pressure 135/86
[2022-06-29] MEDS: ACETAMINOPHEN 325 MG TABLET 650 MG PO (17:15)
[2022-06-29 17:46] LABS: NT Pro B Type Natriuretic Pept 307 pg/mL (19.9-100); Troponin I < 0.012 ng/mL (0.000-0.034)
[2022-06-29] MEDS: HYDROcodone/acetaminophen (*CRX) 5-325 MG TABLET 1 TAB PO (18:11)
[2022-06-29 18:12] VITALS: BP 135/86; PULSE 96; RESP 17; O2SAT 98
[2022-06-29 18:35] LABS: Influenza A QL RT-PCR Negative (Negative); Influenza B QL RT-PCR Negative (Negative); SARS-CoV-2 RNA PCR Negative
[2022-06-29 23:40] VITALS: BP 133/69; PULSE 84; RESP 18; TEMP 36.6; O2SAT 99
== END 2022-06-29 23:40 ==
PROVIDERS: Emergency Medicine; Emergency Provider Physician Assistant; PCP Internal Medicine
DX: R41.82 Altered mental status, unspecified (principal); M48.56XA Collapsed vertebra, not elsewhere classified, lumbar region, initial encounter for fracture; Z20.822 Contact with and (suspected) exposure to COVID-19; E78.5 Hyperlipidemia, unspecified; I10 Essential (primary) hypertension; F41.9 Anxiety disorder, unspecified; F31.9 Bipolar disorder, unspecified; Z66 Do not resuscitate; Z87.891 Personal history of nicotine dependence; I45.10 Unspecified right bundle-branch block; J32.9 Chronic sinusitis, unspecified; M47.816 Spondylosis without myelopathy or radiculopathy, lumbar region; R07.9 Chest pain, unspecified
CPT/HCPCS: 36415; 70450; 71046; 72100; 80053; 81001; 83605; 83880; 84484; 85025; 85610; 85730; 87636; 93005; 99284; A9270

== ENCOUNTER 2022-10-24 21:43 | Inpatient (IN) | payer MEDICARE, MEDICAID, SELFPAY ==
--- NOTE | ~2022-10-24 | CT_ITS ---
EXAMINATION: CT cervical spine wo con DATE: 10/24/2022 22:50 INDICATION: Head injury. TECHNIQUE: Computed tomography (CT) of the cervical spine was performed without intravenous contrast. Automated exposure control and iterative reconstruction technique were employed. The dose-length pro duct was 571.34 mGy-cm. COMPARISON: CT cervical spine 02/10/2020 FINDINGS: The visualized portions of the lung apices demonstrate emphysema. Bone alignment is normal. Vertebral body heights are normal. Intervertebral disc heights are normal in cervical spine. The fol lowing disc levels are specifically discussed: C2-C3: There is mild right uncovertebral joint osteoarthritis. There is moderate right and severe lef t facet joint osteoarthritis. There is no neural foraminal stenosis. There is no central canal stenos is. C3-C4: There is mild bilateral uncovertebral joint osteoarthritis. There is severe right and mild lef t facet joint osteoarthritis. There is mild right neural foraminal stenosis. There is mild central ca nal stenosis. C4-C5: There is mild right and moderate left uncovertebral joint osteoarthritis. There is moderate ri ght and severe left facet joint osteoarthritis. There is mild left neural foraminal stenosis. There i s mild central canal stenosis. C5-C6: There is mild bilateral uncovertebral joint osteoarthritis. There is severe bilateral facet glenny int osteoarthritis. There is mild left neural foraminal stenosis. There is no central canal stenosis. C6-C7: There is no uncovertebral joint osteoarthritis. There is severe right and moderate left facet joint osteoarthritis. There is mild bilateral neural foraminal stenosis. There is no central canal st enosis. C7-T1: There is no uncovertebral joint osteoarthritis. There is severe right and moderate left facet joint osteoarthritis. There is mild right neural foraminal stenosis. There is no central canal stenos is. IMPRESSION: 1. No fracture. 2. Mild cervical spondylosis. Reviewed, dictated and finalized at location A.
--- NOTE | ~2022-10-24 | CT_ITS ---
EXAMINATION: CT chest abdomen pelvis w con DATE: 10/25/2022 02:49 INDICATION: Sepsis. TECHNIQUE: Computed tomography (CT) of the chest, abdomen, and pelvis was performed with 100 mL Omnip aque 350 intravenous contrast. Automated exposure control and iterative reconstruction technique were employed. The dose-length product was 1666.40 mGy-cm. COMPARISON: Chest CT 04/20/2022, CT abdomen and pelvis 02/10/2020 FINDINGS: CHEST CT: There is mild emphysema. There is mild atelectasis bilaterally. No pleural effusion. The heart size i s normal. No pericardial effusion. There is mild thoracic spondylosis. ABDOMEN/PELVIS CT: The liver, gallbladder, spleen, pancreas, and adrenal glands are normal. There are cysts in the kidne ys measuring up to 3.5 cm on the right. There is a 17 mm hyperdense cyst in left kidney. There is cor tical thinning of the kidneys. There is an umbilical hernia containing fat. There is a Witt catheter in the bladder. The prostate is mildly enlarged. There is a left inguinal hernia containing fat. The appendix is not visualized. Aortic atherosclerosis is noted. There are no pathologically enlarged ly mph nodes. There is no ascites. There is mild lumbar spondylosis. IMPRESSION: 1. Mild emphysema. 2. Umbilical hernia containing fat. 3. Left inguinal hernia containing fat. Reviewed, dictated and finalized at location A.
--- NOTE | ~2022-10-24 | XR_ITS ---
EXAMINATION: XR chest port-a-cath/central DATE: 10/25/2022 04:25 INDICATION: Central line placement. TECHNIQUE: A single frontal view of the chest was obtained. COMPARISON: Chest single view 10/24/2022, chest CT 10/25/2022 FINDINGS: There are lucencies in the lungs, consistent with emphysema. There is mild atelectasis in t he lower lung zones. No pleural effusion or pneumothorax. The heart size is normal. A left subclavian central venous catheter is seen with tip in the superior vena cava. IMPRESSION: 1. Central line tip in superior vena cava. 2. Mild atelectasis in the lower lung zones. 3. Emphysema. Reviewed, dictated and finalized at location A.
--- NOTE | ~2022-10-24 | CT_ITS ---
EXAMINATION: CT brain wo con DATE: 10/24/2022 22:50 INDICATION: Head injury. Headache. TECHNIQUE: Computed tomography (CT) of the head was performed without intravenous contrast. The mA wa s adjusted according to patient size. Iterative reconstruction technique was employed. The dose-lengt h product was 681.00 mGy-cm. COMPARISON: Head CT 06/29/2022 FINDINGS: There is no intracranial hemorrhage, acute infarction, or abnormal intracranial mass lesion . The ventricles are normal in size. There is mucosal thickening in the paranasal sinuses. The orbits are normal. The mastoid air cells are normal. IMPRESSION: 1. Normal brain. Reviewed, dictated and finalized at location A. IMPRESSION: 1. Normal brain.
--- NOTE | ~2022-10-24 | US_ITS ---
EXAMINATION: US renal BI DATE: 10/25/2022 08:39 INDICATION: Acute kidney injury TECHNIQUE: Multiple grayscale and Doppler ultrasound images of the kidneys were obtained. COMPARISON: CT from today FINDINGS: The right kidney measures 10.6 x 5.7 x 5.2 cm. The left kidney measures 10.4 x 5.9 x 4.8 cm . The kidneys demonstrate normal parenchymal echogenicity. There is cortical thinning of the kidneys. Cysts of the right kidney measure up to 3.6 cm. Cysts of the left kidney measure up to 2.0 cm. paren chymal echogenicity. There is no hydronephrosis. The bladder is decompressed by Witt catheter.. IMPRESSION: 1. Cortical thinning of the kidneys without hydronephrosis. Reviewed, dictated and finalized at location B.
--- NOTE | ~2022-10-24 | XR_ITS ---
EXAMINATION: XR chest 1V portable DATE: 10/24/2022 22:24 INDICATION: Dyspnea. TECHNIQUE: A single frontal view of the chest was obtained. COMPARISON: Chest 2 views 06/29/2022, chest CT 10/25/2022 FINDINGS: There are lucencies in the lungs, consistent with emphysema. There is mild atelectasis in l eft lower lobe. No pleural effusion or pneumothorax. The heart size is normal. There are old healed r ight rib fractures. IMPRESSION: 1. Emphysema. 2. Mild atelectasis in left lower lobe. Reviewed, dictated and finalized at location A.
[2022-10-24 21:42] VITALS: BP 112/82; PULSE 90; RESP 14; TEMP 36.6; O2SAT 94
--- NOTE | 2022-10-24 22:08 | ECG_ITS ---
Measurements Intervals [place] Rate: 72 P: 45 LA: 170 QRS: -32 QRSD: 160 T: 15 QT: 408 QTc: 450 Interpretive Statements SINUS RHYTHM WITH FREQUENT SUPRAVENTRICULAR PREMATURE COMPLEXES WITH ATRIAL BIGEMINY LEFT AXIS DEVIATION RIGHT BUNDLE BRANCH BLOCK ABNORMAL ECG COMPARED TO ECG 06/29/2022 16:29:47 ATRIAL BIGEMINY IS NOT PRESENT Electronically Signed On 10-25-2022 15:37:09 CDT by Spencer Lemus M.D.
[2022-10-24 22:35] LABS: Basophils Percent Auto 0.2 % (0.2-1.2); Eosinophils Absolute Auto 0.1 K/mm3 (0-0.3); Eosinophils Percent Auto 2.8 % (0-4.4); Hematocrit 34.4 % (42.0-52.0); Hemoglobin 11.4 g/dL (14.0-18.0); Immature Granulocyte Absolute 0.01 K/mm3 (0.00-0.031); Immature Granulocyte Percent A 0.2 % (0-0.5); Lymphocytes Absolute Auto 1.41 K/mm3 (0.9-3.2); Lymphocytes Percent Auto 27.7 % (18.3-44.2); Mean Corpuscular HGB Conc 33.1 g/dl (32-36); Mean Corpuscular Volume 96.6 fl (80-100); Monocytes Absolute Auto 0.6 K/mm3 (0.1-0.6); Monocytes Percent Auto 10.8 % (2.6-8.5); Neutrophils Percent Auto 58.3 % (45.5-73.1); Platelet Count Result 115 k/mm3 (150-375); Red Blood Count 3.56 M/mm3 (4.6-6.20); Red Cell Distribution Width 13.8 % (11.5-14.5); White Blood Count 5.1 K/mm3 (4.5-10.0)
[2022-10-24 22:36] LABS: Glucose Point of Care 108 mg/dl (65-105)
--- NOTE | 2022-10-24 22:45 | ED.DIZZY ---
HPI - Dizziness General Chief Complaint: Dizziness <Ellen Lucero PA-C - Last Filed: 10/25/22 03:00> Stated Complaint: weakness <Ellen Lucero PA-C - Last Filed: 10/25/22 03:00> Time Seen by Provider: 10/24/22 21:55 <Ellen Lucero PA-C - Last Filed: 10/25/22 03:00> History of Present Illness HPI Narrative: 56-year-old male with a history of RAMIRO, AMS, bipolar 1, depression, hyperlipidemia, hypertension, normocytic pain he reports for evaluation for generalized weakness, lethargy and fatigue, dizziness times approximately 3 days. Patient is a poor historian. He reports dizziness and lightheadedness, blurred vision and double vision. He states he fell yesterday and hit his head, and is possibly reporting loss of consciousness. He is also stating that he lost consciousness spontaneously few days ago while sitting in bed. He is reporting a headache over the frontal scalp as well as shortness of breath, fever. Patient recently had a medication change from oxycodone to [place]. He denies chest pain, palpitations, abdominal pain, urinary complaints, back pain, nausea or vomiting, diarrhea. <Ellen Lucero PA-C - Last Filed: 10/25/22 03:00> Related Data Home Medications: Home Medications Medication Instructions Recorded Confirmed amitriptyline 100 mg tablet 100 mg PO DAILY 02/10/20 09/02/20 atorvastatin 20 mg tablet 20 mg PO DAILY 02/10/20 09/02/20 bupropion HCl 150 mg tablet,12 hr 150 mg PO BID 02/10/20 09/02/20 sustained-release duloxetine 60 mg capsule,delayed 60 mg PO BID 02/10/20 09/02/20 release gabapentin 100 mg capsule 100 mg PO TID 02/10/20 09/02/20 mirtazapine 45 mg tablet 45 mg PO DAILY 02/10/20 09/02/20 montelukast 10 mg tablet 10 mg PO DAILY 02/10/20 09/02/20 tamsulosin 0.4 mg capsule 0.4 mg PO DAILY 02/10/20 09/02/20 divalproex 500 mg tablet,delayed 500 mg PO BID 09/02/20 09/02/20 release hydrocodone 5 mg-acetaminophen 325 1 tablet PO BID PRN Pain 09/02/20 09/02/20 mg tablet meloxicam 7.5 mg tablet 7.5 mg PO DAILY 09/02/20 09/02/20 pantoprazole 40 mg tablet,delayed 40 mg PO DAILY 09/02/20 09/02/20 release <Ellen Lucero PA-C - Last Filed: 10/25/22 03:00> Allergies/Adverse Reactions: Allergies Allergy/AdvReac Type Severity Reaction Status Date / Time prednisone Allergy Swelling Verified 10/22/21 17:48 aspirin AdvReac Abdominal Verified 10/22/21 17:48 Pain <Ellen Lucero PA-C - Last Filed: 10/25/22 03:00> Review of Systems Review of Systems: CONSTITUTIONAL: Denies fever, chills EYES: Denies visual changes, redness, or discharge. ENT: Denies rhinorrhea, congestion, sore throat, or otalgia. CARDIOVASCULAR: Denies chest pain, palpitations, or edema. RESPIRATORY: See HPI GASTROINTESTINAL: Denies abdominal pain, nausea, vomiting, or diarrhea. GENITOURINARY: Denies dysuria or hematuria. SKIN: Denies rash or itching. MUSCULOSKELETAL: Denies back pain, joint pain, or myalgia. NEUROLOGIC: See HPI PSYCHIATRIC: Denies anxiety or depression. <Ellen Lucero PA-C - Last Filed: 10/25/22 03:00> [facility] Past Medical History Medical History: Medical History Anxiety Bipolar 1 disorder Depression Hyperlipidemia Hypertension <Ellen Lucero PA-C - Last Filed: 10/25/22 03:00> Surgical History Surgical History: Surgical History No pertinent past surgical history <Ellen Lucero PA-C - Last Filed: 10/25/22 03:00> Social History Social History: Social History Social History: Resides at [facility]. 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 Smoking status: Former smoker Second hand tobacco smoke exposure: Yes Alcohol intake: never Substance use: never Gender identity (if verbalized by the patient): M
[2022-10-24 22:54] LABS: Acetaminophen < 10 ug/mL (10-30); Alanine Aminotransferase 15 U/L (6-50); Albumin Level 3.9 g/dL (3.5-5.1); Alkaline Phosphatase 51 U/L (38-126); Anion Gap 2 mmol/L (8-16); Aspartate Amino Transferase 27 U/L (17-59); Bilirubin,Total 0.4 mg/dL (0.2-1.3); Blood Urea Nitrogen 40 mg/dL (9-20); Calcium 9.1 mg/dL (8.4-10.2); Carbon Dioxide 34 mmol/L (22-30); Chloride 99 mmol/L (98-107); Estimated CRCL calculation 34 ml/min; Estimated Glomerular Filt Rate 29; Ethanol < 10 mg/dL (<10); Glucose 104 mg/dL (65-110); Salicylate < 1.0 mg/dL (2-20); Sodium 135 mmol/L (137-145)
[2022-10-24] MEDS: SODIUM CHLORIDE 0.9% IV 1,000 ML 999 ML IV CONT ×2 (22:56→23:54)
[2022-10-24 23:06] LABS: Troponin I < 0.012 ng/mL (0.000-0.034)
[2022-10-24] MEDS: POTASSIUM CHLORIDE INJ 40 MEQ in SODIUM CHLORIDE 0.9% IV 500 ML 130 MEQ IVPB (23:15)
[2022-10-24 23:23] LABS: Lactic Acid Reflex 0.9 mmol/L (0.7-2.0); Magnesium 2.3 mg/dL (1.6-2.3); Phosphorus 3.6 mg/dL (2.5-4.5)
[2022-10-24 23:24] LABS: Ammonia < 9 umol/L (9-30)
[2022-10-24 23:28] LABS: Valproic Acid 84.2 ug/mL (50-120)
[2022-10-25] VITALS (39 sets, daily range): BP systolic 85–149; BP diastolic 53–97; PULSE 60–701; RESP 9–25; TEMP 35.3–37.1; O2SAT 89–98; BMI 24.4
--- NOTE | 2022-10-25 | ECHO_ITS ---
Patient Info Name: Erwin Leggett Age: 67 years : 1955 Gender: Male Ht: 74 in Wt: 190 lbs BSA: 2.12 m2 HR: 66 bpm BP: 140 / 80 mmHg Heart Rhythm: Sinus Rhythm Technical Quality: Poor Exam Date: 10/25/2022 12:17 PM Exam Location: [facility] Pulmonary Exam Room: ICU7 Patient Status: Inpatient Admit Date: 10/25/2022 Staff Ordering Physician: Noe Justice MD Practice Physician: Analilia Rollins RDCS Attending Provider: Jose Zuniga MD Referring Physician: Reshma GAUTHIER; Exam Type: CA echo dop color flow w con Study Info Indications - SYNCOPE SHOCK Complete two-dimensional, color flow and Doppler transthoracic echocardiogram is performed with contrast to opacify the left ventricle and to improve the deliniation of the left ventricle endocardial borders. Contrast/Agitated Saline Contrast/Ag. Saline: Definity Amount: 2.00 ml Administered By: Analilia Rollins [facility] Existing IV Access: Yes Reason for Poor Study: patient body habitus Summary 1. Technically difficult study. Definity echo contrast enhancement administered. 2. Left ventricular chamber dimension is normal. 3. Left ventricular systolic function is normal, estimated at 60-65%. 4. Left ventricular septal wall motion is abnormal with septal motion related to bundle branch block. 5. There is no aortic valve stenosis. 6. There is trace mitral valve regurgitation. 7. There is mild tricuspid valve regurgitation. 8. No pulmonary hypertension, estimated pulmonary arterial systolic pressure is 34 mmHg. Left Ventricle Left ventricular chamber dimension is normal. Left ventricular systolic function is normal, estimated at 60-65%. There is no increased left ventricular wall thickness. Left ventricular septal wall motion is abnormal with septal motion related to bundle branch block. The left ventricular diastolic function is abnormal. Technically difficult study. Definity echo contrast enhancement administered. Right Ventricle Right ventricular chamber dimension is normal. Right ventricular systolic function is normal. Left Atria Left atrial chamber dimension is normal. Right Atria Right atrial chamber dimension is mildly enlarged. Aortic Valve The aortic valve is not well visualized. There is mild aortic valve sclerosis. There is no aortic valve stenosis. There is no aortic valve regurgitation. Pulmonic Valve The pulmonic valve is not well visualized. Mitral Valve The mitral valve has thickened leaflets. There is trace mitral valve regurgitation. The mitral valve annulus is mildly calcified. Tricuspid Valve The tricuspid valve leaflets are normal. There is mild tricuspid valve regurgitation. No pulmonary hypertension, estimated pulmonary arterial systolic pressure is 34 mmHg. Pericardium/Pleural The pericardium appears not well visualized. There is small pericardial effusion. Aorta The aortic root size at the sinus of Valsalva is normal. Left Ventricular Outflow Tract Name Value Normal LVOT 2D LVOT Diameter 2.11 cm LVOT Doppler LVOT Peak Gradient 1 mmHg LVOT Mean Gradient 1 mmHg LVOT VTI
[2022-10-25 00:39] LABS: Amphetamine Screen Urine Negative (Negative); Barbiturate Screen Urine Negative (Negative); Benzodiazepines Screen Urine Negative (Negative); Cannabinoid Screen Urine Negative (Negative); Cocaine Screen Urine Negative (Negative); Methadone Screen Urine Negative (Negative); Opiate Screen Urine Positive (Negative); Phencyclidine Screen Urine Negative (Negative)
[2022-10-25 00:41] LABS: Appearance Urine Clear (Clear); Bacteria Urine None Seen /hpf; Bilirubin Urine Negative (Negative); Blood Urine Negative (Negative); Color Urine Yellow (Yellow); Glucose Urine UA Negative (Negative); Ketones Urine Trace mg/dL (Negative); Leukocyte Esterase Ur Trace LEU/UL (Negative); Need Manual Microscopic Reviewed; Nitrate Urine Negative (Negative); Protein Urine Trace mg/dL (Negative); RBC Urine 0-2 /hpf (0-2); Specific Grav Ur 1.025 (1.001-1.035); Squamous Epithelial Cell Urine None seen /hpf (Few); WBC Urine 0-5 /hpf; pH Urine 5.5 (5.0-9.0)
[2022-10-25 00:42] LABS: Add Urine Microscopic? YES
[2022-10-25 00:58] LABS: Influenza A QL RT-PCR Negative (Negative); Influenza B QL RT-PCR Negative (Negative); SARS-CoV-2 RNA PCR Negative (Negative)
[2022-10-25] MEDS: SODIUM CHLORIDE 0.9% IV 1,000 ML 500 ML IV CONT (01:17)
[2022-10-25] MEDS: PIPERACILLN/TAZ 3.375GM/NS50ML 3.375 GM/50 ML BAG IVPB ×4 (01:36→23:13)
--- NOTE | 2022-10-25 02:03 | PC.NURSE ---
0120 beir hugger and multiple blankets applied to pt after a rectal temp reading of 95.3. EDP made aware. 0205 Pt's rectal temp is 95.9 at this time. NS bolus is running through fluid warmer which is set at 41 degrees celcius. Beir hugger and blankets still applied. EDP made aware.
[2022-10-25 04:40] LABS: Fractional Inspired Oxygen 21 %; HCO3 VBG 27.6 mEq/l (24.0-30.0); PCO2 VBG 42.8 mmHg (42.0-48.0); PO2 VBG 38.2 mmHg (35.0-45.0)
[2022-10-25 04:41] LABS: Device ROOM AIR; pH VBG 7.428 (7.300-7.400)
[2022-10-25] MEDS: NOREPINEPHRINE 8 MG/D5W 250 ML 8 MG/250 ML BAG 9.38 MG IV CONT (04:42)
[2022-10-25] MEDS: SODIUM CHLORIDE 0.9% IV 1,000 ML 150 ML IV CONT (04:43)
--- NOTE | 2022-10-25 07:10 | ADMGEN ---
This patient, Erwin Leggett, was admitted to Intensive Care Unit-7. Patient/family oriented to hospital policies and general routines including ID bracelet, bed and alarms, visiting hours, pain management, procedures, bathroom and other care routines, personal items, smoking policy, room service/diet, and visiting hours. Information on how to activate the Rapid Response Team has been discussed. Patient/Family are encouraged to report perceived risks to care and to ask questions if they do not understand what they are told or what they should do.
--- NOTE | 2022-10-25 07:17 | PC.NURSE ---
Pt's son, Timo Leggett, phone numbers [phone] (landline), (cell).
[2022-10-25] MEDS: ONDANSETRON INJ 4 MG/2 ML VIAL IV PUSH (07:33)
[2022-10-25 08:43] LABS: Creatine Kinase 252 U/L (55-170)
[2022-10-25] MEDS: PIPERACILLIN/TAZ 2.25G/NS 50ML 2.25 GM/50 ML BAG IVPB (08:47)
[2022-10-25 09:26] LABS: Basophils Percent Auto 0.4 % (0.2-1.2); Eosinophils Absolute Auto 0.1 K/mm3 (0-0.3); Eosinophils Percent Auto 2.6 % (0-4.4); Hemoglobin 10.4 g/dL (14.0-18.0); Immature Granulocyte Absolute 0.01 K/mm3 (0.00-0.031); Immature Granulocyte Percent A 0.2 % (0-0.5); Immature Platelet Fraction Pct 6.2 % (0.9-11.2); Lymphocytes Absolute Auto 0.79 K/mm3 (0.9-3.2); Lymphocytes Percent Auto 15.8 % (18.3-44.2); Mean Corpuscular HGB Conc 32.5 g/dl (32-36); Mean Corpuscular Hemoglobin 32.2 pg (26-34); Mean Corpuscular Volume 99.1 fl (80-100); Mean Platelet Volume 11.1 fl (7.4-10.4); Monocytes Absolute Auto 0.6 K/mm3 (0.1-0.6); Neutrophils Absolute Auto 3.5 K/mm3 (1.3-6.7); Platelet Count Result 103 k/mm3 (150-375); Red Blood Count 3.23 M/mm3 (4.6-6.20)
[2022-10-25 09:34] LABS: Creatinine Urine 67.2 mg/dL
[2022-10-25 09:36] LABS: Potassium Urine Random 19.1 meq/L; Sodium Urine Random 123 meq/L
[2022-10-25 09:53] LABS: Eosinophil Urine None Seen % (None Seen)
[2022-10-25 09:54] LABS: Anion Gap 0 mmol/L (8-16); Blood Urea Nitrogen 27 mg/dL (9-20); Calcium 7.5 mg/dL (8.4-10.2); Carbon Dioxide 30 mmol/L (22-30); Chloride 104 mmol/L (98-107); Estimated CRCL calculation 46 ml/min; Estimated Glomerular Filt Rate 41; Glucose 96 mg/dL (65-110); Sodium 134 mmol/L (137-145)
[2022-10-25 09:57] LABS: Urine Eos QC 2nd Tech Confirmed
--- NOTE | 2022-10-25 11:00 | WPDCNINT ---
Assessment and Plan Assessment and plan (1) Shock: Code(s): R57.9 - Shock, unspecified Status: Acute Assessment and Plan: 10/24:Patient presented from the [facility] will complains of weakness, altered mental status, dizziness. Was found to have low blood pressures in the ED, received 30 mL/kg IV fluid bolus despite which his blood pressures remained low, central line was inserted and patient was started on Levophed. -arrival to the ICU patient's systolic blood pressures were in the 140s to 150s, Levophed was discontinued -patient is hemodynamically stable -shock could be related to hypovolemia, infection, volume loss, medications, syncope -patient started on vancomycin and Zosyn (10/25), discontinue Zosyn for now as see chest x-ray, CT chest abdomen and pelvis and UA are all negative. -10/25: Blood cultures have been obtained and pending -continue to monitor blood pressures -cardiology has been consulted by ER for syncope (2) Acute on chronic renal failure: Code(s): N17.9 - Acute kidney failure, unspecified; N18.9 - Chronic kidney disease, unspecified Status: Acute Assessment and Plan: Acute on chronic kidney injury, creatinine on admission was 2.30 -after receiving IV fluids creatinine is 1.70 this morning -10/25: Renal ultrasound showed cortical thinning of the kidneys without hydronephrosis -continue maintenance IV fluids, encourage p.o. intake -due to monitor renal function, electrolytes and urine output (3) Thrombocytopenia: Code(s): D69.6 - Thrombocytopenia, unspecified Status: Acute Assessment and Plan: Chronic thrombocytopenia, no active bleed noted, hemoglobin is stable (4) Hypothermia: Code(s): T68.XXXA - Hypothermia, initial encounter Status: Acute Assessment and Plan: Hypothermia on admission could be related to shock state, once patient was adequately fluid-resuscitated started on Levophed Wendi Barbourer patient became euthermic, -continue to monitor (5) Altered mental status: Code(s): R41.82 - Altered mental status, unspecified Status: Acute Assessment and Plan: Likely related to hypotension, shock, acute kidney injury/uremia -resolved, patient now alert, awake and oriented x3 -patient with multiple falls, neurology to evaluate for possible Parkinson's disease as patient has pill rolling tremors of his hands Plan DVT prophylaxis: Lovenox Stress ulcer prophylaxis: Not indicated Nutrition: Heart healthy diet Code Status: Full code Critical Care Time Spent: 46 minutes Due to a high probability of clinically significant, life threatening deterioration, the patient required my highest level of preparedness to intervene emergently and I personally spent this critical care time directly and personally managing the patient. This critical care time included obtaining a history; examining the patient; pulse oximetry; ordering and review of studies; arranging urgent treatment with development of a management plan; evaluation of patient's response to treatment; frequent reassessment; and discussions with other providers. It was exclusive of separately billable procedures and treating other patients and teaching time. Please see Assessment and Plan section and the rest of the note for further information on patient assessment and treatment This dictation may have been done utilizing a voice recognition system. Attempts have been made to correct errors. However, there may be uncorrected grammatical, spelling, and recognitions errors present. Pacs Specialist Consult Note Consult date: 10/25/22 Reason for consult: Hypotension, hypoxia, fall, dizziness, weakness, shock -briefly requiring Levophed infusion HPI: Erwin Leggett is a 67 year old male with past medical history of bipolar 1, depression, hyperlipidemia, essential hypertension, tremors, history of falls, syncope presented the ED from [facility] on 10/24/2022 with complains of
[2022-10-25] MEDS: POTASSIUM CHLORIDE 20 MEQ PACKET (FOR LIQUID) 40 MEQ PO (11:10)
[2022-10-25] MEDS: KCL 40 MEQ/WATER 100 ML 100 ML 25 ML IVPB (11:12)
[2022-10-25] MEDS: PERFLUTREN LIPID MICROSPHERES 1.5 ML VIAL DILUTED TO 10 ML TOTAL VOLUME IV PUSH (11:20)
--- NOTE | 2022-10-25 12:35 | PM.IMHP ---
H&P: HPI History of Present Illness Date/Time: 10/25/22 12:35 Chief Complaint: 56-year-old male with a history of RAMIRO, AMS, bipolar 1, depression, hyperlipidemia, hypertension, normocytic pain he reports for evaluation for generalized weakness, lethargy and fatigue, dizziness times approximately 3 days.? Patient is a poor historian.? He reports dizziness and lightheadedness, blurred vision and double vision.? He states he fell yesterday and hit his head, and is possibly reporting loss of consciousness.? He is also stating that he lost consciousness spontaneously few days ago while sitting in bed.? He is reporting a headache over the frontal scalp as well as shortness of breath, fever. Patient recently had a medication change from oxycodone to [place].? He denies chest pain, palpitations, abdominal pain, urinary complaints, back pain, nausea or vomiting, diarrhea Review of Systems Review of Systems: All systems reviewed & are unremarkable except as noted in HPI and below PMFSH Past Medical History Medical History Anxiety Bipolar 1 disorder Depression Hyperlipidemia Hypertension Surgical History Surgical History No pertinent past surgical history Family History Family History Father Cancer Social History Social History Social History: Resides at [facility] [address]. 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 Smoking status: Former smoker Second hand tobacco smoke exposure: Yes Alcohol intake: never Substance use: former Substance use type: marijuana Lack of Transportation: No Lack of Food: Never True Current Housing: I Have Housing Concerned About Future Housing: No Difficulty Paying Gas/Electric Bills: No Difficulty Paying for Meds: No Currently Unemployed: No Education: High School Diploma/GED Difficulty w/ Childcare or Family Care: No Gender identity (if verbalized by the patient): Male Spiritual care concerns: No Meds Home Medications and Allergies Home Medications Medication Instructions Recorded Confirmed Type bupropion HCl 150 mg tablet,12 hr 150 mg PO DAILY 02/10/20 10/25/22 History sustained-release duloxetine 60 mg capsule,delayed 60 mg PO DAILY 02/10/20 10/25/22 History release gabapentin 100 mg capsule 600 mg PO Q6H 02/10/20 10/25/22 History tamsulosin 0.4 mg capsule 0.8 mg PO DAILY 02/10/20 10/25/22 History divalproex 500 mg tablet,delayed 500 mg PO BID 09/02/20 10/25/22 History release pantoprazole 40 mg tablet,delayed 40 mg PO HS 09/02/20 10/25/22 History release acetaminophen 650 mg tablet 650 mg PO Q6H PRN Pain 10/25/22 10/25/22 History albuterol sulfate 90 mcg/actuation 2 puff inhalation Q4H PRN 10/25/22 10/25/22 History aerosol inhaler (Ventolin HFA) Shortness Of Breath Or Wheezing aluminum-mag hydroxide-simethicone 30 ml PO Q4H PRN Indigestion 10/25/22 10/25/22 History 200 mg-200 mg-20 mg/5 mL oral susp aspirin 81 mg tablet,delayed 81 mg PO DAILY 10/25/22 10/25/22 History release atorvastatin 40 mg tablet 40 mg PO DAILY 10/25/22 10/25/22 History baclofen 20 mg tablet 20 mg PO BID 10/25/22 10/25/22 History budesonide-formoterol HFA 80 2 puff inhalation BID 10/25/22 10/25/22 History mcg-4.5 mcg/actuation aerosol inhaler (Symbicort) buspirone 10 mg tablet 10 mg PO BID 10/25/22 10/25/22 History dextromethorphan-guaifenesin 5 10 ml PO Q4H PRN Cough 10/25/22 10/25/22 History mg-100 mg/5 mL oral liquid (Robitussin Cough-Chest Congestion DM) docusate sodium 100 mg capsule 100 mg PO BID 10/25/22 10/25/22 History (Colace) duloxetine 30 mg capsule,delayed 30 mg PO DAILY 10/25/22 10/25/22 History release ferrous sulfate 325 mg (65 mg 325 mg PO DAILY 10/25/22 10/25/22 History ir
--- NOTE | 2022-10-25 13:28 | PM.CNCAR ---
Assessment and Plan Assessment and plan (1) Syncope: Qualifiers: Syncope type: vasovagal syncope Qualified Code(s): R55 - Syncope and collapse Code(s): R55 - Syncope and collapse Status: Acute Assessment and Plan: Most likely vasovagal etiology presenting with evidence of intravascular volume depletion/dehydration, acute kidney injury, hypotension transiently requiring vasopressor support which has subsequently been discontinued. There is no evidence for tachy or bradyarrhythmia or stroke in the explanation. Patient presentation most likely related to the above in addition to medication side effects including change in his chronic narcotic pain medicine coupled with decreased oral intake and additional chronic medications including duloxetine, gabapentin, prazosin, quetiapine and trazodone. DVT prophylaxis. Holter monitor 04/2022 without contributing tachy bradyarrhythmia. Continue telemetry to evaluate for tachy or bradyarrhythmia. Will review 2D echocardiogram when available to assess for LV systolic and diastolic function, chamber size, valve pathology, and pulmonary pressures. Further recommendation to follow as appropriate after review by echocardiogram. No indication for ischemic workup at this time. (2) Acute hypotension: Code(s): I95.9 - Hypotension, unspecified Status: Acute Assessment and Plan: As above secondary to intravascular volume depletion, medication side effects. Do not resume hydrochlorothiazide. Hold off on prazosin. Infectious workup pending. Continue evaluation. No evidence for stroke, GI bleed, myocardial infarction or Naldo arrhythmias contribution. Patient is afebrile. (3) RAMIRO (acute kidney injury): Code(s): N17.9 - Acute kidney failure, unspecified Status: Acute Assessment and Plan: Acute on chronic kidney injury improved with IV fluids and stabilization of blood pressure. Avoid nephrotoxic agents. Avoid ibuprofen, hydrochlorothiazide. Hold antihypertensives for now. (4) Hypokalemia: Code(s): E87.6 - Hypokalemia Status: Acute Assessment and Plan: Replete potassium to around 4.0. Check magnesium. TSH normal. (5) Altered mental status: Qualifiers: Altered mental status type: somnolence Qualified Code(s): R40.0 - Somnolence Code(s): R41.82 - Altered mental status, unspecified Status: Acute Assessment and Plan: Improving. Most likely secondary to polypharmacy, bipolar disorder, possible underlying dementia complicated by multiple sedating medications, narcotics, dehydration and acute kidney injury. Neurology and or psychiatry evaluation to simplify medical therapy as is feasible. (6) Thrombocytopenia: Code(s): D69.6 - Thrombocytopenia, unspecified Status: Acute Assessment and Plan: Chronic, stable. No evidence for bleeding. History of Present Illness History of Present Illness Consult date/time: Date of service: 10/25/22 13:28 Requesting physician: Noe Justice MD Consult reason: hypotension and Other (Reported syncope) Reason For Visit: Hypotension Narrative: Patient is a 67-year-old male with a past medical history significant for depression, bipolar disorder, hypertension, hyperlipidemia, history of chronic pain syndrome, history of recurrent falls who presented to the emergency department from [facility] due to complaints of progressive weakness, confusion, imbalance, falls and possible syncope. Patient reports progressive confusion weakness, dizziness, declining oral intake due to lack of appetite and possible syncope with position change advisor the past couple days. Upon evaluation in the ER CT head revealed no acute intracranial process, imaging revealed no other spinal fracture. He noted to be hypotensive and acute kidney injury with a creatinine 2.3 and negative serial troponins. Urine toxicity screen was positive for opiates
[2022-10-25] MEDS: ALBUTEROL SULFATE NEB 2.5 MG/3 ML INH INHALATION ×2 (14:01→19:47)
[2022-10-25] MEDS: IPRATROPIUM BR 0.02% INH SOLN 0.5 MG/2.5 ML VIAL INHALATION ×2 (14:01→19:47)
[2022-10-25] MEDS: CENTRAL LINE FLUSH 10 ML IV PUSH ×3 (15:04→23:13)
[2022-10-25] MEDS: ACETAMINOPHEN 325 MG TABLET 650 MG PO (15:20)
[2022-10-25] MEDS: SODIUM CHLORIDE 0.9% IV 1,000 ML 75 ML IV CONT (17:43)
[2022-10-25] MEDS: FLUTICASONE/SALMETEROL 45-21 MCG INHALER 1 PUFF 2 PUFF INHALATION (19:48)
[2022-10-25] MEDS: HYDROcodone/acetaminophen (*CRX) 7.5-325 MG TABLET 1 TAB PO (20:35)
[2022-10-26] VITALS (16 sets, daily range): BP systolic 111–146; BP diastolic 67–78; PULSE 56–74; RESP 12–16; TEMP 36.3–36.8; O2SAT 92–100
[2022-10-26] MEDS: IPRATROPIUM BR 0.02% INH SOLN 0.5 MG/2.5 ML VIAL INHALATION ×4 (01:34→20:34)
[2022-10-26] MEDS: ALBUTEROL SULFATE NEB 2.5 MG/3 ML INH INHALATION ×4 (01:34→20:34)
[2022-10-26 01:35] LABS: Glucose Point of Care 116 mg/dl (65-105)
[2022-10-26] MEDS: HYDROcodone/acetaminophen (*CRX) 7.5-325 MG TABLET 1 TAB PO ×3 (02:43→20:19)
[2022-10-26] MEDS: PIPERACILLN/TAZ 3.375GM/NS50ML 3.375 GM/50 ML BAG IVPB (05:10)
[2022-10-26] MEDS: SODIUM CHLORIDE 0.9% IV 1,000 ML 75 ML IV CONT ×2 (05:11→20:20)
[2022-10-26] MEDS: CENTRAL LINE FLUSH 10 ML IV PUSH ×2 (05:11→15:00)
[2022-10-26 05:23] LABS: Basophils Percent Auto 0.5 % (0.2-1.2); Eosinophils Absolute Auto 0.2 K/mm3 (0-0.3); Eosinophils Percent Auto 4.3 % (0-4.4); Hematocrit 32.5 % (42.0-52.0); Hemoglobin 10.6 g/dL (14.0-18.0); Immature Granulocyte Absolute 0.01 K/mm3 (0.00-0.031); Immature Granulocyte Percent A 0.3 % (0-0.5); Lymphocytes Absolute Auto 1.21 K/mm3 (0.9-3.2); Lymphocytes Percent Auto 30.6 % (18.3-44.2); Mean Corpuscular HGB Conc 32.6 g/dl (32-36); Mean Corpuscular Hemoglobin 31.9 pg (26-34); Mean Corpuscular Volume 97.9 fl (80-100); Mean Platelet Volume 10.9 fl (7.4-10.4); Monocytes Absolute Auto 0.5 K/mm3 (0.1-0.6); Monocytes Percent Auto 12.7 % (2.6-8.5); Neutrophils Percent Auto 51.6 % (45.5-73.1); Platelet Count Result 85 k/mm3 (150-375); Red Blood Count 3.32 M/mm3 (4.6-6.20); Red Cell Distribution Width 13.5 % (11.5-14.5)
[2022-10-26 05:32] LABS: Alanine Aminotransferase 13 U/L (6-50); Albumin Level 3.3 g/dL (3.5-5.1); Alkaline Phosphatase 50 U/L (38-126); Anion Gap 4 mmol/L (8-16); Aspartate Amino Transferase 21 U/L (17-59); Bilirubin,Total 0.3 mg/dL (0.2-1.3); Blood Urea Nitrogen 22 mg/dL (9-20); Calcium 8.3 mg/dL (8.4-10.2); Carbon Dioxide 32 mmol/L (22-30); Chloride 101 mmol/L (98-107); Estimated CRCL calculation 48 ml/min; Estimated Glomerular Filt Rate 44; Glucose 71 mg/dL (65-110); Magnesium 1.9 mg/dL (1.6-2.3); Phosphorus 3.5 mg/dL (2.5-4.5); Sodium 137 mmol/L (137-145)
[2022-10-26] MEDS: FLUTICASONE/SALMETEROL 45-21 MCG INHALER 1 PUFF 2 PUFF INHALATION ×2 (07:59→20:34)
--- NOTE | 2022-10-26 10:06 | WPDNEURCNPN ---
Assessment and Plan Assessment and plan (1) Shock: Code(s): R57.9 - Shock, unspecified Status: Acute (2) Acute hypotension: Code(s): I95.9 - Hypotension, unspecified Status: Acute (3) Psychiatric illness: Code(s): F99 - Mental disorder, not otherwise specified Status: Acute (4) residential current use of antipsychotic medication: Code(s): Z79.899 - Other alf (current) drug therapy Status: Acute (5) Tremor: Code(s): R25.1 - Tremor, unspecified Status: Acute Plan Mr. Leggett is a 67 year old male with a history of psychiatric illness presenting due to shock in the setting of opioid use. During admission, patient was noted to have involuntary movements in the hands, that were concerning for rest tremor. On exam, the the hand movements are erratic, while parkinsonian tremor should be more uniform with stable frequency. Movements could be secondary to antipsychotic use -- he has oromotor movements and akathisia as well. I would hold off on starting any Parkinson's treatment at this time. Would be helpful to examine patient in outpatient setting to assess gait as well. He should follow-up in Neurology clinic. Consult date: 10/26/22 Reason for consult: Parkinson's disease HPI: Erwin Leggett is a 67 year old male with a history of anxiety, bipolar disorder, depression, HTN, HLD presenting from [facility] due to hypotension. patient presented with hypotension in the ED with systolic blood pressures in the 80s. that was unresponsive to fluid boluses. He was started on Levophed and admitted to the ICU. CT head was done that was negative for acute process. He was started on vancomycin and Zosyn and was subsequently admitted. While in the ICU, patient was alert and oriented. He was noted to have pill rolling tremor by the ICU physician. Patient has also had recurrent falls, related to leg length discrepancy. Neurology has been consulted for possible Parkinson's disease. Patient has Seroquel listed in his medication list. He does not take any other antipsychotics currently. Blood pressure had improved during this admission, and Levophed has been weaned. Patient is not able to give much information about his tremor or when it started. He has had some falls, but is not able to elaborate any more than that. He does not know if he has every taken antipsychotic medications in the past. He said that he has autism. Review of Systems Review of Systems: ROS unobtainable: Yes unobtainable due to mental status PMFSH Past Medical History Medical History Anxiety Bipolar 1 disorder Depression Hyperlipidemia Hypertension Surgical History Surgical History No pertinent past surgical history Family History Family History Father Cancer Social History Social History Social History: Resides at [facility]. 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 Smoking packs per day: 0.75 Smoking cigarettes per day: 15.0 Smoking status: Current every day smoker Tobacco type: cigarettes Alcohol intake: never Substance use: former Substance use type: marijuana Lack of Transportation: No Lack of Food: Never True Current Housing: I Have Housing Concerned About Future Housing: No Difficulty Paying Gas/Electric Bills: No Difficulty Paying for Meds: No Currently Unemployed: No Education: High School Diploma/GED Difficulty w/ Childcare or Family Care: No Gender identity (if verbalized by the patient): Male Spiritual care concerns: No Meds Home Medications and Allergies Home Medications Medication Instructions Recorded Confirmed Type bupropion HCl 150 mg tablet,12 hr 150 mg PO DAILY 02/10/20 10/25/22 History sustained-
--- NOTE | 2022-10-26 11:34 | PM.IMPN ---
Progress Note: A&P Assessment and Plan (1) Shock: Code(s): R57.9 - Shock, unspecified Status: Acute Assessment and Plan: ? etiology likely dehydration no sign of infection, abx stopped (2) Acute on chronic renal failure: Code(s): N17.9 - Acute kidney failure, unspecified; N18.9 - Chronic kidney disease, unspecified Status: Acute Assessment and Plan: improved (3) Thrombocytopenia: Code(s): D69.6 - Thrombocytopenia, unspecified Status: Acute Assessment and Plan: Chronic thrombocytopenia, no active bleed noted, hemoglobin is stable (4) Hypothermia: Code(s): T68.XXXA - Hypothermia, initial encounter Status: Acute Assessment and Plan: monitor, resolved (5) Altered mental status: Code(s): R41.82 - Altered mental status, unspecified Status: Acute Assessment and Plan: improved, monitor Plan likely dc tomorrow Subjective Date/time seen: 10/26/22 11:34 Interval history: no new complaints bp better, feeling much better overall Exam Narrative: General: Pleasant gentleman in no acute distress HEENT:? Pupils equal and reactive, sclera is clear Neck:? Supple Respiratory:? Clear to auscultation bilaterally, no wheeze, adequate air entry Cardiac:? S1-S2 is normal, regular rate and rhythm Abdomen:? Soft, nontender, nondistended, normal bowel sounds Extremities:? No edema, palpable pedal pulses Neuro:? Patient is awake, alert, oriented x3, answers to questions appropriately and follows simple commands in all extremities. Patient does have some pill-rolling tremors on bilateral hands Skin:? Warm and dry Psych:? Normal mentation affect Objective Data Vital Signs Vital Signs: Vital Signs - 24 hr 10/25/22 12:00 10/25/22 14:03 10/25/22 14:03 Temperature 97.7 F Pulse Rate 66 70 Respiratory Rate 12 16 Blood Pressure 130/76 Pulse Oximetry 89 L 92 Oxygen Delivery Room Air Fraction of Inspired Oxygen 21 10/25/22 14:17 10/25/22 12:00 10/25/22 14:00 Temperature Pulse Rate 71 75 67 Respiratory Rate 14 Blood Pressure Pulse Oximetry Oxygen Delivery Fraction of Inspired Oxygen 10/25/22 12:00 10/25/22 14:00 10/25/22 16:00 Temperature Pulse Rate 66 Respiratory Rate 12 Blood Pressure 114/75 Pulse Oximetry 95 94 90 Oxygen Delivery Room Air Room Air Fraction of Inspired Oxygen 10/25/22 14:00 10/25/22 14:01 10/25/22 14:15 Temperature 97.8 F 97.8 F 97.9 F Pulse Rate 71 71 72 Respiratory Rate 11 L 15 15 Blood Pressure 129/88 Pulse Oximetry 94 92 91 Oxygen Delivery Fraction of Inspired Oxygen 10/25/22 14:30 10/25/22 14:46 10/25/22 15:01 Temperature 97.9 F 97.9 F 97.9 F Pulse Rate 71 78 69 Respiratory Rate 13 15 12 Blood Pressure 134/82 Pulse Oximetry 89 L 93 90 Oxygen Delivery Fraction of Inspired Oxygen 10/25/22 15:04 10/25/22 15:16 10/25/22 15:30 Temperature 97.9 F 97.9 F 97.9 F Pulse Rate 69 69 68 Respiratory Rate 12 12 25 H Blood Pressure Pulse Oximetry 91 93 93 Oxygen Delivery Fraction of Inspired Oxygen 10/25/22 15:45 10/25/22 16:00 10/25/22 16:01 Temperature 97.9 F 97.9 F 97.9 F Pulse Rate 70 71 71 Respiratory Rate 10 L 13 15 Blood Pressure 119/97 H Pulse Oximetry 89 L Oxygen Delivery Fraction of Inspired Oxygen 10/25/22 16:15 10/25/22 16:30 10/25/22 16:45 Temperature 98.0 F 98.0 F 98.1 F Pulse Rate 69 66 64 Respiratory Rate 13 9 L 18 Blood Pressure Pulse Oximetry 94 90 90 Oxygen Delivery Fraction of Inspired Oxygen 10/25/22 17:01 10/25/22 17:02 10/25/22 17:16 Temperature 98.1 F 98.1 F 98.1 F Pulse Rate 69 71 77 Respiratory Rate 11 L 14 25 H Blood Pressure 140/89 Pulse Oximetry 93 93 91 Oxygen Delivery Fraction of Inspired Oxygen 10/25/22 16:00 10/25/22 18:00 10/25/22 19:48 Temperature Pulse Rate 701 H 68 60 Respiratory Rate 16 Blood Pressure Pulse
--- NOTE | 2022-10-26 15:34 | PC.NURSE ---
This patient, Erwin Leggett, was transferred to [Critical access hospital[facility] ] on 10/26/22 at 1525. Personal belongings sent with patient. Report given to [CALLUM Smith @ [phone] ]. Appropriate documentation sent with patient.
[2022-10-26] MEDS: ENOXAPARIN 40 MG/0.4 ML SYRINGE SUB-Q (17:24)
[2022-10-27] VITALS (11 sets, daily range): BP systolic 134–138; BP diastolic 76–84; PULSE 62–89; RESP 14–18; TEMP 36.2–37.1; O2SAT 94–98
[2022-10-27] MEDS: HYDROcodone/acetaminophen (*CRX) 7.5-325 MG TABLET 1 TAB PO ×2 (02:11→10:08)
[2022-10-27] MEDS: ALBUTEROL SULFATE NEB 2.5 MG/3 ML INH INHALATION ×4 (02:21→20:46)
[2022-10-27] MEDS: IPRATROPIUM BR 0.02% INH SOLN 0.5 MG/2.5 ML VIAL INHALATION ×4 (02:21→20:46)
[2022-10-27] MEDS: FLUTICASONE/SALMETEROL 45-21 MCG INHALER 1 PUFF 2 PUFF INHALATION ×2 (07:10→20:47)
[2022-10-27] MEDS: DULoxetine HCL 30 MG CAPSULE.DR PO (09:19)
[2022-10-27] MEDS: GABAPENTIN 300 MG CAPSULE 600 MG PO ×3 (09:19→17:02)
[2022-10-27] MEDS: ATORVASTATIN 40 MG TABLET PO (09:19)
[2022-10-27] MEDS: buPROPion HCL SR (12 HR) 150 MG TAB PO (09:19)
[2022-10-27] MEDS: DULoxetine HCL 60 MG CAPSULE.DR PO (09:19)
[2022-10-27] MEDS: TAMSULOSIN HCL 0.4 MG CAPSULE 0.8 MG PO (09:19)
[2022-10-27] MEDS: DIVALPROEX SODIUM DR 250 MG TABEC 500 MG PO ×2 (09:19→17:01)
[2022-10-27] MEDS: busPIRone HCL 10 MG TABLET PO ×2 (09:19→17:01)
[2022-10-27] MEDS: DOCUSATE SODIUM 100 MG CAPSULE PO ×2 (09:19→17:02)
[2022-10-27] MEDS: FERROUS SULFATE 325 MG TABLET DR PO (09:20)
[2022-10-27] MEDS: CENTRAL LINE FLUSH 10 ML IV PUSH (14:15)
--- NOTE | 2022-10-27 16:17 | PM.DS ---
DS: Admitting Diagnosis Discharge Date 10/27/22 Admitting Diagnosis Weakness DS: Discharge Diagnosis Discharge Diagnosis (1) Shock: Code(s): R57.9 - Shock, unspecified Status: Acute (2) Syncope: Qualifiers: Syncope type: vasovagal syncope Qualified Code(s): R55 - Syncope and collapse Code(s): R55 - Syncope and collapse Status: Acute (3) Acute on chronic renal failure: Code(s): N17.9 - Acute kidney failure, unspecified; N18.9 - Chronic kidney disease, unspecified Status: Acute (4) Thrombocytopenia: Code(s): D69.6 - Thrombocytopenia, unspecified Status: Acute (5) Hypothermia: Code(s): T68.XXXA - Hypothermia, initial encounter Status: Acute (6) Altered mental status: Code(s): R41.82 - Altered mental status, unspecified Status: Acute (7) Tremor: Code(s): R25.1 - Tremor, unspecified Status: Acute DS: Summary Hospital Course Reason for hospitalization: 56yo male with a history of RAMIRO, AMS, bipolar 1, depression, hyperlipidemia and HTN here for generalized weakness, lethargy and dizziness for 3 days.?Please see H&P for details. Hospital Course: EKG on admission showed normal sinus rhythm with frequent premature supraventricular complexes and right bundle branch block. He was afebrile. Blood pressure was low on admission. Chest x-ray showed atelectasis in the lower lung zones and emphysema. He remained on room air throughout his hospital course. CT of the brain was read as normal. CT of the chest, abdomen and pelvis showed mild emphysema, umbilical hernia containing fat and left inguinal hernia containing fat. Renal ultrasound showing cortical thinning of the kidneys. Cervical spine CT showed no fractures. Echocardiogram showed EF of 60-65% with septal wall motion abnormalities consistent with the bundle branch block. Patient's blood pressure worsened. He did receive IV fluids and central line was placed in ED. He was admitted to the ICU on Levophed. Levophed was able to weaned off. He was started on IV antibiotics after cultures obtained. UA was not consistent with UTI. Blood cultures were no growth to date. Patient was noted to have acute kidney injury with creatinine of 2.3 on admission. This trended down with IV fluids. Lactic acid level was normal. Troponin was negative. TSH normal. Total CK was 250. Ammonia level was less than 9. Urine drug screen is positive for opiates otherwise was negative. He was on opiates on admission. No evidence of infections so antibiotics were stopped. Cardiology was consulted for syncope that was present on admission. Was felt that he had vasovagal syncope related to intravascular volume depletion and dehydration causing the hypotension. His blood pressure improved. We continued to hold some of his home medications. Neurology was consulted for tremors. They recommended re-examination of the patient once he is well. Patient will follow-up in the neurology clinic further evaluation and treatment. He is wheelchair-bound. He is long term care. He overall did well was able be discharged on 10/27/2022 to the group home. Status at Discharge Cognitive/behavioral status at discharge: stable Time Spent with Patient Time attestation: Total time spent providing and/or coordinating discharge services: 35 minutes Time spent: Greater than 30 minutes Exam Narrative: AF 97.1 138/84 72 16 94% ra Gen - NARD Chest - CTA bilaterally, nml RR CV - RRR S1/S2 Abd - Soft, NT/ND, Positive BS - Witt secured draining clear yellow urine Ext - No pedal edema Neuro - Alert and orientedx4. mild tremors noted UE Psych - Nml mood and affect Skin - Warm and dry DS: Data Data Completed and Pending Labs on day of discharge: Preliminary micro results at discharge 10/25/22 00:07 Blood Culture - Preliminary Blood 10/25/22 00:07 Blood Culture - Preliminary B
[2022-10-27 18:02] LABS: SARS-CoV-2 RNA PCR Negative (Negative)
[2022-10-27] MEDS: PANTOPRAZOLE 40 MG TABLET PO (20:21)
[2022-10-29 14:00] LABS: Chloride Rand Ur 152 mmol/L (32-290); Chloride/Creatinine Rand Ur 238 (23-275); Creatinine Random Urine 64 mg/dL (20-320)
== END 2022-10-27 21:34 | DRG 640 ==
LOC: ANHED 10-25 04:57 → ANHICU 10-25 06:47 → ANH3MEDSUR 10-26 15:23
PROVIDERS: Chiropractor; Internal Medicine; Physician Assistant; Admitting Provider Internal Medicine; Emergency Provider Emergency Medicine; PCP Internal Medicine; Visit Provider Internal Medicine
DX: E86.1 Hypovolemia (principal); R57.1 Hypovolemic shock; N17.9 Acute kidney failure, unspecified; I95.89 Other hypotension; I95.2 Hypotension due to drugs; T40.2X5A Adverse effect of other opioids, initial encounter; R68.0 Hypothermia, not associated with low environmental temperature; R55 Syncope and collapse; Z20.822 Contact with and (suspected) exposure to COVID-19; I12.9 Hypertensive chronic kidney disease with stage 1 through stage 4 chronic kidney disease, or unspecified chronic kidney disease; N18.9 Chronic kidney disease, unspecified; E87.6 Hypokalemia; D69.6 Thrombocytopenia, unspecified; R25.1 Tremor, unspecified; R41.82 Altered mental status, unspecified; F31.9 Bipolar disorder, unspecified; E78.5 Hyperlipidemia, unspecified; Z66 Do not resuscitate; Z87.891 Personal history of nicotine dependence; Z91.81 History of falling; Z99.3 Dependence on wheelchair
CPT/HCPCS: 36415; 51702; 70450; 71045; 71260; 72125; 74177; 76775; 80048; 80053; 80164; 80307; 81001; 82140; 82436; 82550; 82570; 82803; 82948; 83605; 83735; 84100; 84133; 84300; 84443; 84484; 85025; 85055; 85999; 87040; 87635; 87636; 93005; 94640; 96361; 96365; 96366; 96367; 96368; 99285; A9270; C1751; C8929; J1650; J2405; J2543; J3370; J3480; J7030; J7040; Q9957; Q9967

== ENCOUNTER 2022-10-30 12:18 | Emergency (ER) | payer MEDICARE, MEDICAID, SELFPAY ==
--- NOTE | ~2022-10-30 | XR_ITS ---
EXAMINATION: XR ankle RT min 3V DATE: 10/30/2022 13:03 INDICATION: Right ankle injury. TECHNIQUE: 4 views of right ankle were obtained. COMPARISON: None. FINDINGS: There is an oblique fracture of distal fibula with medial aspect of the fracture line at th e level of the tibial plafond. The distal fracture fragment demonstrates 2 mm posterolateral displace ment. There is a screw in first metatarsal. Joint spaces are normal. There is an enthesophyte at post erior aspect of calcaneal tuberosity. Ankle soft tissue swelling is noted. IMPRESSION: 1. Oblique fracture of distal fibula. Reviewed, dictated and finalized at location A.
[2022-10-30 12:23] VITALS: BP 137/84; PULSE 88; RESP 16; TEMP 36.2; O2SAT 100
--- NOTE | 2022-10-30 12:25 | ED.LOWEXIN ---
HPI - Extremity Injury (Lower) General Chief Complaint: Extremity Injury, Lower Stated Complaint: leg fracture Time Seen by Provider: 10/30/22 12:23 Source: patient and EMS Mode of arrival: EMS Limitations: no limitations History of Present Illness HPI Narrative: 67 years old white male came to the emergency room by ambulance with pain at the right ankle area after a ground fall 3 to 4 days ago. Patient reports was playing cards, got and possible feels dizzy and fell twisted right ankle. Patient had right ankle x-ray yesterday at noon which showed acute appearing distal fibular fracture. Patient referred to our emergency room today for further evaluation. Patient is awake, alert oriented x4 denying any fever, chills, nausea, vomiting, chest pain, shortness of breath, headache, neck pain, back pain or abdominal pain. Patient does not know why he fell patient normally walks without a cane or a walker, denying any focal neurodeficit. Related Data Home Medications Medication Instructions Recorded Confirmed bupropion HCl 150 mg tablet,12 hr 150 mg PO DAILY 02/10/20 10/25/22 sustained-release duloxetine 60 mg capsule,delayed 60 mg PO DAILY 02/10/20 10/25/22 release gabapentin 100 mg capsule 600 mg PO Q6H 02/10/20 10/25/22 tamsulosin 0.4 mg capsule 0.8 mg PO DAILY 02/10/20 10/25/22 divalproex 500 mg tablet,delayed 500 mg PO BID 09/02/20 10/25/22 release pantoprazole 40 mg tablet,delayed 40 mg PO HS 09/02/20 10/25/22 release acetaminophen 650 mg tablet 650 mg PO Q6H PRN Pain 10/25/22 10/25/22 albuterol sulfate 90 mcg/actuation 2 puff inhalation Q4H PRN 10/25/22 10/25/22 aerosol inhaler (Ventolin HFA) Shortness Of Breath Or Wheezing aluminum-mag hydroxide-simethicone 30 ml PO Q4H PRN Indigestion 10/25/22 10/25/22 200 mg-200 mg-20 mg/5 mL oral susp aspirin 81 mg tablet,delayed 81 mg PO DAILY 10/25/22 10/25/22 release atorvastatin 40 mg tablet 40 mg PO DAILY 10/25/22 10/25/22 baclofen 20 mg tablet 20 mg PO BID 10/25/22 10/25/22 budesonide-formoterol HFA 80 2 puff inhalation BID 10/25/22 10/25/22 mcg-4.5 mcg/actuation aerosol inhaler (Symbicort) buspirone 10 mg tablet 10 mg PO BID 10/25/22 10/25/22 dextromethorphan-guaifenesin 5 10 ml PO Q4H PRN Cough 10/25/22 10/25/22 mg-100 mg/5 mL oral liquid (Robitussin Cough-Chest Congestion DM) docusate sodium 100 mg capsule 100 mg PO BID 10/25/22 10/25/22 (Colace) duloxetine 30 mg capsule,delayed 30 mg PO DAILY 10/25/22 10/25/22 release ferrous sulfate 325 mg (65 mg 325 mg PO DAILY 10/25/22 10/25/22 iron) tablet guaifenesin 600 mg tablet, 1,200 mg PO BID 10/25/22 10/25/22 extended release 12 hr (Mucinex) melatonin 5 mg tablet 5 mg PO HS 10/25/22 10/25/22 polyethylene glycol 3350 17 gram 17 g PO DAILY PRN Constipation 10/25/22 10/25/22 oral powder packet (Miralax) prazosin 1 mg capsule 1 mg PO HS 10/25/22 10/25/22 quetiapine 25 mg tablet 25 mg PO HS 10/25/22 10/25/22 quetiapine 50 mg tablet 50 mg PO HS 10/25/22 10/25/22 trazodone 50 mg tablet 50 mg PO HS 10/25/22 10/25/22 Allergies Allergy/AdvReac Type Severity Reaction Status Date / Time prednisone Allergy Swelling Verified 10/22/21 17:48 aspirin AdvReac Abdominal Verified 10/22/21 17:48 Pain Review of Systems Review of Systems: All systems reviewed & are unremarkable except as noted in HPI and below PMFSH Past Medical History Medical History Anxiety Bipolar 1 disorder Depression Hyperlipidemia Hypertension Surgical History Surgical History No pertinent past surgical history Family History Family History Father Cancer Social History Social History Social History: Resides at [facility]. 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 Smoking pa
[2022-10-30 12:38] VITALS: BP 133/79; PULSE 80
[2022-10-30 12:39] VITALS: BP 111/90; PULSE 85
[2022-10-30] MEDS: HYDROcodone/acetaminophen (*CRX) 5-325 MG TABLET 1 TAB PO (12:48)
[2022-10-30 13:09] LABS: Basophils Percent Auto 0.7 % (0.2-1.2); Eosinophils Absolute Auto 0.3 K/mm3 (0-0.3); Hemoglobin 12.1 g/dL (14.0-18.0); Immature Granulocyte Absolute 0.05 K/mm3 (0.00-0.031); Immature Granulocyte Percent A 0.8 % (0-0.5); Lymphocytes Percent Auto 18.2 % (18.3-44.2); Mean Corpuscular HGB Conc 32.7 g/dl (32-36); Mean Corpuscular Hemoglobin 32.6 pg (26-34); Mean Corpuscular Volume 99.7 fl (80-100); Mean Platelet Volume 12.1 fl (7.4-10.4); Monocytes Absolute Auto 0.5 K/mm3 (0.1-0.6); Monocytes Percent Auto 8.1 % (2.6-8.5); Neutrophils Absolute Auto 4.1 K/mm3 (1.3-6.7); Neutrophils Percent Auto 67.2 % (45.5-73.1); Platelet Count Result 106 k/mm3 (150-375); Red Blood Count 3.71 M/mm3 (4.6-6.20); Red Cell Distribution Width 13.7 % (11.5-14.5)
[2022-10-30 13:50] LABS: Appearance Urine Clear (Clear); Bilirubin Urine Negative (Negative); Blood Urine Negative (Negative); Color Urine Yellow (Yellow); Glucose Urine UA Negative (Negative); Ketones Urine Trace mg/dL (Negative); Leukocyte Esterase Ur Negative LEU/UL (Negative); Nitrate Urine Negative (Negative); Protein Urine Negative (Negative); Specific Grav Ur 1.025 (1.001-1.035); pH Urine 5.5 (5.0-9.0)
[2022-10-30 13:51] LABS: Add Urine Microscopic? NO
[2022-10-30 14:05] LABS: Alanine Aminotransferase 19 U/L (6-50); Albumin Level 4.2 g/dL (3.5-5.1); Alkaline Phosphatase 77 U/L (38-126); Anion Gap 7 mmol/L (8-16); Aspartate Amino Transferase 26 U/L (17-59); Bilirubin,Total 0.6 mg/dL (0.2-1.3); Blood Urea Nitrogen 35 mg/dL (9-20); Calcium 9.3 mg/dL (8.4-10.2); Carbon Dioxide 28 mmol/L (22-30); Chloride 103 mmol/L (98-107); Estimated CRCL calculation 55 ml/min; Estimated Glomerular Filt Rate 51; Glucose 90 mg/dL (65-110); Potassium 4.2 mmol/L (3.4-5.0); Sodium 138 mmol/L (137-145)
[2022-10-30 15:39] VITALS: BP 117/88; PULSE 95; RESP 16; O2SAT 99
== END 2022-10-30 15:40 ==
PROVIDERS: Emergency Provider Emergency Medicine; PCP Internal Medicine
DX: S82.831A Other fracture of upper and lower end of right fibula, initial encounter for closed fracture (principal); E78.5 Hyperlipidemia, unspecified; I10 Essential (primary) hypertension; F41.9 Anxiety disorder, unspecified; F31.9 Bipolar disorder, unspecified; Z66 Do not resuscitate; F17.210 Nicotine dependence, cigarettes, uncomplicated; Z79.82 Long term (current) use of aspirin; W18.39XA Other fall on same level, initial encounter; X50.9XXA Other and unspecified overexertion or strenuous movements or postures, initial encounter
CPT/HCPCS: 29515; 36415; 73610; 80053; 81003; 85025; 85055; 99284; A9270

== ENCOUNTER 2023-08-29 12:01 | Observation (INO) | payer MEDICARE, SELFPAY ==
[2023-08-29] VITALS (10 sets, daily range): BP systolic 141–166; BP diastolic 77–93; PULSE 71–97; RESP 9–18; TEMP 36.6–36.7; O2SAT 92–100; BMI 22.8
--- NOTE | ~2023-08-29 | XR_ITS ---
EXAMINATION: XR chest 2V DATE: 08/29/2023 13:26 INDICATION: Weakness. TECHNIQUE: Frontal and lateral views of the chest were obtained. COMPARISON: Chest view 10/25/2022 FINDINGS: There is mild atelectasis in the lingula. No pleural effusion or pneumothorax. The heart si ze is normal. IMPRESSION: 1. Mild atelectasis in the lingula. Reviewed, dictated and finalized at location E.
--- NOTE | ~2023-08-29 | CT_ITS ---
CT abdomen pelvis w con Ordering provider: Valery Wolf MD History: 68 years Male with . lower abdominal pain . Comparison: October 25, 2022 Technique: CT abdomen and pelvis with IV and without oral contrast. Radiation reduction technique uti lized. DLP is 508.6 mGy. Findings: VISUALIZED LOWER CHEST: Bilateral dependent atelectatic changes. Small density in the lingula unchang ed from previous examination. UPPER ABDOMINAL ORGANS: Liver: Normal. Tiny cyst in the left lobe measuring 6 mm. Gallbladder: Normal. Spleen: Normal. Stomach/duodenum: Normal. Pancreas: Normal. Adrenals: Normal. Kidneys: Slightly dense exophytic lesion in the left kidney upper lobe measuring 1.7 cm. May be a com plex cyst or a mass. Follow-up advised. A cyst is seen in the left kidney lower pole measuring 1.9 CN M. A cyst is seen in the right kidney midpole measuring 4 cm. Tiny cyst seen in the right kidney uppe r pole. PELVIC ORGANS: The bladder wall is slightly thickened. Air is seen in the urinary bladder. Witt's ca theter is noted. Enlarged prostate. BOWEL AND MESENTERY: Colon: No evidence of diverticulitis. Normal appendix. Small Bowel: Slightly dilated small bowel loops seen in the upper abdomen with air-fluid level which may indicate partial or early obstruction. No thickening is seen. Diarrhea and enteritis are in xxthe differential. Follow-up advised. Peritoneum/mesentery: No free air or free fluid. No mesenteric lymphadenopathy. RETROPERITONEUM: Mild atheromatous disease of the abdominal aorta. No retroperitoneal lymphadenopat hy. MUSCULOSKELETAL: Superficial soft tissues: The superficial soft tissues are normal. Bones: Age appropriate degenerative changes of the spine. IMPRESSION: 1. No dilated small bowel loops in the upper abdomen suggestive of partial or early obstruction. Obs tructing lesion is not demonstrated. Other differential includes the area and enteritis. Follow-up ad vised. 2. Mass in the left kidney upper pole. Further evaluation advised. Reviewed, dictated and finalized at location A. IMPRESSION: 1. No dilated small bowel loops in the upper abdomen suggestive of partial or early obstruction. Obstructing lesion is not demonstrated. Other differential i ncludes the area and enteritis. Follow-up advised. 2. Mass in the left kidney upper pole. Further evaluation advised.
--- NOTE | ~2023-08-29 | MR_ITS ---
EXAMINATION: MR abdomen wo/w con DATE: 08/31/2023 11:07 INDICATION: Left kidney mass. TECHNIQUE: Magnetic resonance imaging (MRI) of the abdomen was performed without and with 16 mL Multi Regis intravenous contrast. COMPARISON: CT abdomen and pelvis 08/29/2023 FINDINGS: There are cysts in the liver measuring up to 5 mm. The gallbladder is normal. The common duct is norm al and measures 7 mm. There are cysts in the spleen measuring up to 4 mm. The pancreas and adrenal gl ands are normal. There are cysts in the kidneys measuring up to 3.9 cm on the right. There are 1.9 cm and 0.4 cm hemorrhagic cysts in left kidney. There are no dilated loops of bowel. There are no patho logically enlarged lymph nodes. There is no free intraperitoneal fluid. IMPRESSION: 1. Hemorrhagic cyst in left kidney correlating with the CT finding. Reviewed, dictated and finalized at location A.
--- NOTE | 2023-08-29 12:50 | ECG_ITS ---
Test Date: 2023-08-29 13:07:19 Measurements Intervals [place] Rate: 74 P: 46 [place]: 171 QRS: -57 QRSD: 138 T: 31 QT: 413 QTc: 459 Interpretive Statements SINUS RHYTHM LEFT ANTERIOR SUPERIOR HEMIBLOCK RIGHT BUNDLE BRANCH BLOCK [120+ ms QRS DURATION, UPRIGHT V1, 40+ ms S IN I/aVL/V4/V5/V6] ABNORMAL ECG No previous ECG available for comparison Electronically Signed On 08-29-2023 15:30:16 CDT by Ulises Mason M.D.
--- NOTE | 2023-08-29 12:52 | ED.WEAKNESS ---
HPI - Weakness General Chief complaint: Weakness Stated complaint: weakness Time Seen by Provider: 08/29/23 12:08 Source: patient, EMS, RN notes reviewed and old records reviewed Mode of arrival: EMS History of Present Illness HPI Narrative: This is a 68 year old male who presents for evaluation of generally not feeling well. He states that he was around a methane leak and he felt like he could not breath. He also reports he had an episode of nausea and vomiting today and dark emesis. He denies associated diarrhea, fever. He is complaining of difficulty eating and poor appetite. He has constipated and he has lower abdominal pain. He also reports difficulty urinating Related Data Home Medications Medication Instructions Recorded Confirmed bupropion HCl 150 mg tablet,12 hr 150 mg PO DAILY 02/10/20 08/29/23 sustained-release gabapentin 100 mg capsule 600 mg PO Q6H 02/10/20 08/29/23 tamsulosin 0.4 mg capsule 0.8 mg PO HS 02/10/20 08/29/23 divalproex 500 mg tablet,delayed 500 mg PO BID 09/02/20 08/29/23 release pantoprazole 40 mg tablet,delayed 40 mg PO HS 09/02/20 08/29/23 release acetaminophen 650 mg tablet 650 mg PO Q6H PRN Pain 10/25/22 08/29/23 aspirin 81 mg tablet,delayed 81 mg PO DAILY 10/25/22 08/29/23 release atorvastatin 40 mg tablet 40 mg PO HS 10/25/22 08/29/23 docusate sodium 100 mg capsule 100 mg PO BID 10/25/22 08/29/23 (Colace) guaifenesin 600 mg tablet, 1,200 mg PO BID 10/25/22 08/29/23 extended release 12 hr (Mucinex) melatonin 5 mg tablet 5 mg PO HS 10/25/22 08/29/23 polyethylene glycol 3350 17 gram 17 g PO DAILY PRN Constipation 10/25/22 08/29/23 oral powder packet (Miralax) quetiapine 25 mg tablet 25 mg PO HS 10/25/22 08/29/23 trazodone 50 mg tablet 50 mg PO HS 10/25/22 08/29/23 duloxetine 30 mg capsule,delayed 90 mg PO DAILY 11/09/22 08/29/23 release tramadol 100 mg capsule 50 mg PO Q6H Pain 08/02/23 08/29/23 24h,extended release(25-75) ferrous sulfate 325 mg (65 mg 65 mg PO DAILY 08/29/23 08/29/23 iron) tablet naproxen 250 mg tablet 250 mg PO Q12H 08/29/23 08/29/23 ondansetron 4 mg disintegrating 4 mg PO Q8H PRN Nausea 08/29/23 08/29/23 tablet Allergies Allergy/AdvReac Type Severity Reaction Status Date / Time prednisone Allergy Swelling Verified 08/29/23 12:20 aspirin AdvReac Abdominal Verified 08/29/23 12:20 Pain Review of Systems Constitutional: Constitutional: Reports weakness Cardiovascular: Cardiovascular: Denies syncope, Denies rapid heart rate, Denies irregular heart rhythm, Denies leg edema and Denies dyspnea Respiratory: Respiratory: Denies chest congestion, Denies hemoptysis, Denies excessive phlegm production and Reports dyspnea Gastrointestinal: Gastrointestinal: Reports abdominal pain, Denies hematochezia, Reports constipation, Denies diarrhea, Reports nausea and Reports vomiting Genitourinary: Genitourinary: Denies hematuria, Denies dysuria, Denies penile discharge, Denies testicular pain and Reports urinary frequency Musculoskeletal: Musculoskeletal: Denies joint swelling, Denies loss of height and Reports muscle weakness Neurologic: Denies syncope, Denies focal weakness and Denies weakness PMFSH Past Medical History Medical History Anxiety Bipolar 1 disorder Depression Hyperlipidemia Hypertension Surgical History Surgical History History of back surgery History of placement of nerve stimulator that has since been removed Family History Family History Father Cancer Social History Social History Social History: Resides at [facility]. Smoking status: Current every day smoker Tobacco type: cigarettes Alcohol intake: never Substance use: current Substance use type: marijuana Last use:
[2023-08-29 13:06] LABS: Basophils Percent Auto 0.7 % (0.2-1.2); Eosinophils Absolute Auto 0.2 K/mm3 (0-0.3); Hemoglobin 12.4 g/dL (14.0-18.0); Immature Granulocyte Absolute 0.01 K/mm3 (0.00-0.031); Immature Granulocyte Percent A 0.2 % (0-0.5); Lymphocytes Absolute Auto 1.12 K/mm3 (0.9-3.2); Lymphocytes Percent Auto 27.7 % (18.3-44.2); Mean Corpuscular HGB Conc 34.4 g/dl (32-36); Mean Corpuscular Hemoglobin 33.3 pg (26-34); Mean Corpuscular Volume 96.8 fl (80-100); Mean Platelet Volume 12.3 fl (7.4-10.4); Monocytes Absolute Auto 0.5 K/mm3 (0.1-0.6); Monocytes Percent Auto 11.1 % (2.6-8.5); Neutrophils Absolute Auto 2.3 K/mm3 (1.3-6.7); Neutrophils Percent Auto 56.3 % (45.5-73.1); Platelet Count Result 104 k/mm3 (150-375); Red Blood Count 3.72 M/mm3 (4.6-6.20); Red Cell Distribution Width 13.7 % (11.5-14.5)
[2023-08-29 13:18] LABS: INR 0.9; Partial Thromboplastin Time 35.9 Seconds (22.3-36.8); Prothrombin Time 13.1 Seconds (11.1-14.7)
--- NOTE | 2023-08-29 13:21 | PC.NURSE ---
pt to xray via stretcher at this time on the monitor
[2023-08-29 13:35] LABS: Troponin I < 0.012 ng/mL (0.000-0.034)
[2023-08-29 13:37] LABS: Lactic Acid Reflex 0.8 mmol/L (0.7-2.0)
[2023-08-29 13:38] LABS: Alanine Aminotransferase 6 U/L (6-50); Albumin Level 4.2 g/dL (3.5-5.1); Alkaline Phosphatase 77 U/L (38-126); Anion Gap 8 mmol/L (4-12); Aspartate Amino Transferase 25 U/L (17-59); Bilirubin,Total 0.7 mg/dL (0.2-1.3); Blood Urea Nitrogen 20 mg/dL (9-20); Calcium 9.5 mg/dL (8.4-10.2); Carbon Dioxide 28 mmol/L (22-30); Chloride 101 mmol/L (98-107); Estimated Glomerular Filt Rate 51; Glucose 87 mg/dL (65-110); Lipase 34 U/L (23-300); Magnesium 1.9 mg/dL (1.6-2.3); Potassium 4.4 mmol/L (3.4-5.0); Sodium 137 mmol/L (137-145)
[2023-08-29 13:51] LABS: Appearance Urine Clear (Clear); Bacteria Urine None Seen /hpf; Bilirubin Urine Negative (Negative); Blood Urine Negative (Negative); Color Urine Yellow (Yellow); Glucose Urine UA Negative (Negative); Ketones Urine Negative (Negative); Leukocyte Esterase Ur 2+ LEU/UL (Negative); Nitrate Urine Negative (Negative); Non Pathogenic Casts 0-2; Protein Urine Negative (Negative); RBC Urine 0-2 /hpf (0-2); Specific Grav Ur 1.011 (1.001-1.035); Squamous Epithelial Cell Urine None Seen /hpf (Few); Urobilinogen Urine 0.2 mg/dL (<2.0)
[2023-08-29] MEDS: SODIUM CHLORIDE 0.9% IV 1,000 ML 999 ML IV CONT (13:59)
[2023-08-29 14:35] LABS: Add Urine Microscopic? YES
[2023-08-29 14:39] LABS: Influenza A QL RT-PCR Negative (Negative); Influenza B QL RT-PCR Negative (Negative); SARS-CoV-2 RNA PCR Negative (Negative)
[2023-08-29] MEDS: ONDANSETRON INJ 4 MG/2 ML VIAL IV PUSH (15:00)
[2023-08-29] MEDS: HYDROmorphone HCL INJ (*CRX) 1 MG/ML SYR 0.5 MG IV PUSH (15:00)
--- NOTE | 2023-08-29 15:26 | PM.CNGS ---
Assessment and Plan Assessment and plan (1) Partial small bowel obstruction: Code(s): K56.600 - Partial intestinal obstruction, unspecified as to cause Status: Acute Assessment and Plan: CT suggests early/partial SBO vs enteritis. No previous abdominal surgery. Abdominal exam is benign. More likely this is enteritis. No indication for any surgical management at this time. Continue medical management. Okay to start a clear liquid diet. If patient begins vomiting, then he may require NG tube decompression. Continue to follow with serial abdominal exams. (2) Nausea and vomiting: Code(s): R11.2 - Nausea with vomiting, unspecified Status: Acute Assessment and Plan: He has had issues with nausea, vomiting, and poor oral intake over the past month in addition to bowel habit changes and dark stools. Recommend GI evaluation that could be done as an outpatient if he is improving with medical management, but may need inpatient consultation if having persistent issues. (3) Hypertension: Code(s): I10 - Essential (primary) hypertension Status: Acute (4) Bipolar 1 disorder: Code(s): F31.9 - Bipolar disorder, unspecified Status: Acute (5) Left kidney mass: Code(s): N28.89 - Other specified disorders of kidney and ureter Status: Acute (6) Tobacco abuse: Code(s): Z72.0 - Tobacco use Status: Acute Plan I have discussed the patient's case and plan of care with Dr. Villegas. Thank you for allowing us to see the patient in consultation and we will continue to follow along with you. History of Present Illness Consult details Consult date: 08/29/23 Reason for consult: other (Small bowel obstruction) Requesting physician: Valery Wolf MD Narrative: This is a 68-year-old man with a history of HTN, HLD, bipolar disorder, who we have been asked to see in surgical consultation for possible small bowel obstruction. The patient resides at [facility]. He reports having diarrhea about 3 weeks ago, and since then he has had intermittent issues with nausea and vomiting. He has had poor oral intake because he reportedly cannot tolerate anything other than liquids majority of the time. He denies any difficulty swallowing or regurgitation. He reports about a 20 lb weight loss in the past month. Today, there was apparently a gas leak at the half-way and he had a sudden onset of nausea and vomiting. He also reports lower abdominal pain that started today. He has felt constipated and reportedly has not had a bowel movement in 2 weeks. He has been passing flatus. He then presented to the ER for evaluation. Labs showed a normal white blood cell count, lactic acid 0.8, troponin negative. CT scan of the abdomen and pelvis showed mildly dilated small bowel loops in the upper abdomen suggestive of possible partial or early bowel obstruction, other differentials include diarrhea and enteritis. Incidentally noted is a left kidney mass. Our service was consulted by the ED physician and he is now seen in the ER. He is a somewhat poor historian and his history of events is conflicted on multiple occasions during our conversation. At 1 point, he denies any vomiting today and another point of the conversation he reports he did vomit after eating oatmeal. He is not feeling nauseous now and his abdominal pain has resolved after receiving IV Dilaudid. No previous abdominal surgeries. No previous bowel obstructions. He reports having chronic issues with intermittent diarrhea for some time and recently noticed dark black stools. He has not had a colonoscopy in at least 10 years. Review of Systems Review of Systems: All systems reviewed & are unremarkable except as noted in HPI and below PMFSH Past Medical History Medical History Anxiety Bipolar 1 disorder Depression Hyperlipidemia Hypertension Surgical History Surg
[2023-08-29] MEDS: SODIUM CHLORIDE 0.9% IV 1,000 ML 125 ML IV CONT (16:59)
[2023-08-29] MEDS: MORPHINE SULFATE (*CRX) 4 MG/ML INJ IV PUSH ×3 (16:59→22:45)
--- NOTE | 2023-08-29 17:41 | ADMGEN ---
This patient, Erwin Leggett, was admitted to Medical Room 258-. Patient/family oriented to hospital policies and general routines including ID bracelet, bed and alarms, visiting hours, pain management, procedures, bathroom and other care routines, personal items, smoking policy, room service/diet, and visiting hours. Information on how to activate the Rapid Response Team has been discussed. Patient/Family are encouraged to report perceived risks to care and to ask questions if they do not understand what they are told or what they should do.
--- NOTE | 2023-08-29 22:43 | PM.IMHP ---
H&P: HPI History of Present Illness Date/Time: 08/29/23 20:00 Chief Complaint: Weakness and abdominal discomfort. Narrative: This is a 68-year-old pleasant 68-year-old male with tremors, hypertension, hyperlipidemia, gastroesophageal reflux disease, benign prostatic hyperplasia, borderline diabetes, anxiety, depression, bipolar disorder, and posttraumatic stress disorder who presented to the emergency department via EMS from [place] for evaluation of weakness and abdominal discomfort. The patient provides the following history. He typically suffers from constipation however about 3 weeks ago he had diarrhea and since that time he has had daily nausea poor appetite, and occasional episodes of nonbloody and nonbilious emesis. He seems to only keep down liquids and he has lost about 20 lb in the last month or so. He reports having a similar episode a couple of years ago for which he was evaluated by Dr. Hair and somewhere in his chart is documented that he has gastroparesis however that does not ring a mane to him. In any event, he has once again developed constipation and has not had a good bowel movement for 2 weeks though he has been passing gas. He also endorses dysuria, urgency, and dribbling when he urinates. He has felt increasingly weak and decided to come in today for evaluation. He denies fever, sweats, cold and flu symptoms, chest pain, pleuritic pain, cough, shortness of breath, bloating, belching, melena, hematochezia, and hematemesis. In the ED: Vital signs were stable on arrival. Labs were significant for a WBC count of 4.0, hemoglobin 12.4, platelet 104, creatinine 1.40. Urine was positive for 2+ leukocyte esterase and 11 to 20 WBC. He was negative for influenza and COVID. CT scan suggests early/partial small-bowel obstruction versus enteritis and a mass in the left kidney upper pole. Chest x-ray showed mild atelectasis in the lingula. He was given a g of ceftriaxone for possible UTI, ondansetron, morphine, and a L normal saline bolus and he is being admitted in this setting for further workup and surgery consult. Review of Systems Review of Systems: 12 systems were reviewed and are negative except for as per HPI. [facility] Past Medical History Medical History (Updated 08/30/23 @ 00:03 by Angélica Kern PA-C) Anxiety Benign prostatic hyperplasia Bipolar 1 disorder Depression Hyperlipidemia Hypertension Posttraumatic stress disorder Tremor Surgical History Surgical History History of back surgery History of placement of nerve stimulator that has since been removed Family History Family History Father Cancer Social History Social History (Updated 08/30/23 @ 00:15 by Angélica Kern PA-C) Social History: Surrogate medical decision maker: Nayely and Timo , siblings. Code status: Full code. Smoking status: Current every day smoker Tobacco type: cigarettes Alcohol intake: never Substance use: current Substance use type: marijuana Last use: 08/28/23 Do You Feel Safe in your Home?: Yes Lack of Transportation: No Lack of Food: Never True Current Housing: I Have Housing Concerned About Future Housing: No Difficulty Paying Gas/Electric Bills: No Difficulty Paying for Meds: No Currently Unemployed: No Education: Associate Degree Difficulty w/ Childcare or Family Care: No Additional living arrangements comments: Currently at [facility]. Hoping to move in with a friend in [place], [place]. Spiritual care concerns: No Meds Home Medications and Allergies Home Medications Medication Instructions Recorded Confirmed Type bupropion HCl 150 mg tablet,12 hr 150 mg PO DAILY 02/10/20 08/29/23 History sustained-release gabapentin 100 mg capsule 600 mg PO Q6H 02/10/20 08/29/23 History tamsulosin 0.4 mg capsule 0.8 mg PO HS 02/10/2008/28
[2023-08-30] MEDS: GABAPENTIN 300 MG CAPSULE 600 MG PO ×4 (00:59→17:40)
[2023-08-30] MEDS: traMADol HCL (*CRX) 50 MG TABLET PO ×3 (00:59→17:40)
[2023-08-30] MEDS: SODIUM CHLORIDE 0.9% IV 1,000 ML 80 ML IV CONT (01:00)
[2023-08-30 06:00] VITALS: BP 136/83; PULSE 68; RESP 18; TEMP 36.6; O2SAT 96
[2023-08-30 06:01] LABS: Basophils Percent Auto 0.8 % (0.2-1.2); Eosinophils Absolute Auto 0.2 K/mm3 (0-0.3); Eosinophils Percent Auto 5.4 % (0-4.4); Hematocrit 41.2 % (42.0-52.0); Immature Granulocyte Absolute 0.01 K/mm3 (0.00-0.031); Immature Granulocyte Percent A 0.3 % (0-0.5); Lymphocytes Percent Auto 38.7 % (18.3-44.2); Mean Corpuscular HGB Conc 31.6 g/dl (32-36); Mean Corpuscular Hemoglobin 32.1 pg (26-34); Mean Corpuscular Volume 101.7 fl (80-100); Mean Platelet Volume 12.3 fl (7.4-10.4); Monocytes Absolute Auto 0.5 K/mm3 (0.1-0.6); Monocytes Percent Auto 11.9 % (2.6-8.5); Neutrophils Absolute Auto 1.7 K/mm3 (1.3-6.7); Neutrophils Percent Auto 42.9 % (45.5-73.1); Platelet Count Result 105 k/mm3 (150-375); Red Blood Count 4.05 M/mm3 (4.6-6.20); Red Cell Distribution Width 13.4 % (11.5-14.5); White Blood Count 3.9 K/mm3 (4.5-10.0)
[2023-08-30 06:08] LABS: Alanine Aminotransferase 12 U/L (6-50); Albumin Level 3.9 g/dL (3.5-5.1); Alkaline Phosphatase 64 U/L (38-126); Anion Gap 9 mmol/L (4-12); Aspartate Amino Transferase 26 U/L (17-59); Bilirubin,Total 0.5 mg/dL (0.2-1.3); Blood Urea Nitrogen 15 mg/dL (9-20); Calcium 8.8 mg/dL (8.4-10.2); Carbon Dioxide 27 mmol/L (22-30); Chloride 103 mmol/L (98-107); Estimated CRCL calculation 62 ml/min; Estimated Glomerular Filt Rate > 60; Glucose 69 mg/dL (65-110); Potassium 3.9 mmol/L (3.4-5.0); Sodium 139 mmol/L (137-145)
--- NOTE | 2023-08-30 07:22 | PM.IMPN ---
Progress Note: A&P Assessment and Plan (1) Gastroenteritis: Code(s): K52.9 - Noninfective gastroenteritis and colitis, unspecified Status: Acute Assessment and Plan: He continues to pass flatus, but denies BM at this time. - CT abdomen/pelvis: No dilated small bowel loops in the upper abdomen suggestive of partial or early obstruction. Obstructing lesion is not demonstrated. Other differential includes the area and enteritis - Per surgery, no surgical intervention required at this time. - Clear liquid diet, advance as tolerated (2) Left kidney mass: Code(s): N28.89 - Other specified disorders of kidney and ureter Status: Acute Assessment and Plan: CT abdomen/pelvis: Mass in the left kidney upper pole. - Urology consulted MRI ordered to further evaluate (3) Benign prostatic hyperplasia with lower urinary tract symptoms: Code(s): N40.1 - Benign prostatic hyperplasia with lower urinary tract symptoms Status: Acute Assessment and Plan: Patient reports increased urgency, dysuria, and dribbling with urination. He has a history of TURP. - Urology consulted Benefit from outpatient evaluation to consider repeat BPH procedure Bladder scan as needed to ensure no retention - Continue tamsulosin 0.8 mg daily (4) Hypertension: Code(s): I10 - Essential (primary) hypertension Status: Acute Assessment and Plan: Chronic, stable. - Monitor (5) Depression with anxiety: Code(s): F41.8 - Other specified anxiety disorders Status: Acute Assessment and Plan: Continue home medications. (6) Tobacco abuse: Code(s): Z72.0 - Tobacco use Status: Acute Assessment and Plan: Denies the need for nicotine patch at this time. Time Spent With Patient Time with patient: 25 - 35 minutes Subjective Date/time seen: 08/30/23 07:22 Interval history: 68-year-old male with tremors, hypertension, hyperlipidemia, gastroesophageal reflux disease, benign prostatic hyperplasia, borderline diabetes, anxiety, depression, bipolar disorder, and posttraumatic stress disorder who presented to the emergency department via EMS from [place] for evaluation of weakness and abdominal discomfort. Patient is pleasant lying comfortably in bed. He continues to pass flatus but no BM. He denies nausea/vomiting. He was evaluated by surgery and will continue to advance diet as tolerated. Patient states that his urinary symptoms are improving. He remains on rocephin at this time pending culture results. He was evaluated by urology in regards to the renal mass. MRI ordered to further evaluate. Due to patients urinary symptoms and prior TURP for BPH he would benefit from outpatient eval to consider repeat procedure. Patient has no other complaints at this time. Review of Systems Review of Systems: All systems reviewed & are unremarkable except as noted in HPI and below Exam Narrative: AF HR 80 RR 20 SpO2 93 BP 137/89 General: male in no acute respiratory distress who is nontoxic appearing, lying semi recumbent in bed. HEENT: Normocephalic. Atraumatic. Pupils equal round reactive to light. Extraocular movement intact. Sclera clear and anicteric. No facial asymmetry. Chest: Lungs are clear to auscultation bilaterally. No wheezes or crackles. CV: Heart was regular rate and rhythm. S1/S2. No murmurs, gallops, or rubs. Abd: Abdomen was soft. Nontender. Nondistended. Positive bowel sounds. No organomegaly or masses. Ext: No clubbing, cyanosis, or edema. 2+ DP pulses bilaterally. Neuro: Patient is alert and oriented x4. Cranial nerves 2-12 are intact. Speech is clear. Psych: Normal mood and affect. Patient is pleasant and cooperative. Skin: Warm and dry. No rashes noted. Objective Data Vital Signs Vital Signs: Vital Signs - 24 hr 08/29/23 12:12 08/29/23 12:38 08/29/23 12:52 Temperature 98.0 F Pulse Rate 83 75 72 Respiratory Rate 16 17 Blood Pressu
[2023-08-30 08:45] VITALS: O2SAT 94
[2023-08-30] MEDS: buPROPion HCL SR (12 HR) 150 MG TAB PO (08:57)
[2023-08-30] MEDS: CARBIDOPA/LEVODOPA 25/100 MG TABLET 1 TABLET PO ×3 (08:57→17:40)
[2023-08-30] MEDS: guaiFENesin 12 HR 600 MG TABCR 1200 MG PO ×2 (08:58→20:15)
[2023-08-30] MEDS: FERROUS SULFATE 325 MG TABLET DR PO (08:58)
[2023-08-30] MEDS: DULoxetine HCL 30 MG CAPSULE.DR 90 MG PO (08:58)
[2023-08-30] MEDS: DIVALPROEX SODIUM DR 250 MG TABEC 500 MG PO ×2 (08:58→20:15)
[2023-08-30] MEDS: DOCUSATE SODIUM 100 MG CAPSULE PO ×2 (08:58→20:16)
--- NOTE | 2023-08-30 09:26 | WPDURCON ---
Assessment and Plan Assessment and plan (1) Left kidney mass: Code(s): N28.89 - Other specified disorders of kidney and ureter Status: Acute Assessment and Plan: CT of abdomen/pelvis shows 1.7 cm left upper pole mass Obtain CT of the abdomen/pelvis with and without contrast for further evaluation (2) Benign prostatic hyperplasia with lower urinary tract symptoms: Code(s): N40.1 - Benign prostatic hyperplasia with lower urinary tract symptoms Status: Acute Assessment and Plan: Chronic issue manage with tamsulosin which will be continued Remote history of TURP. Given recurrence of bothersome LUTS, will benefit from outpatient evaluation to consider repeat BPH procedure He is voiding well at this time. Bladder scan as needed to ensure no retention (3) Abnormal urinalysis: Code(s): R82.90 - Unspecified abnormal findings in urine Status: Acute Assessment and Plan: UA abnormal and pt symptomatic. Urine culture is pending. Received ceftriaxone on admission, continue empiric antibiotics while awaiting culture results (4) Partial small bowel obstruction: Code(s): K56.600 - Partial intestinal obstruction, unspecified as to cause Status: Acute Assessment and Plan: Being managed by General surgery and primary team Urology Consult Note HPI Date Seen: 08/30/23 Requesting Physician: Graciela Merino PA-C Primary Care Provider: UNKNOWN,DOCTOR Consult Narrative Narrative: Erwin Leggett is a 68 year old male retirement resident with a history of BPH currently admitted for gastroenteritis who is being seen in consultation for left kidney mass. Patient presented to the emergency department on 08/29/2023 with complaints of constipation and generally feeling unwell. On arrival, his vital signs were stable, he was afebrile, WBC 4.0, creatinine 1.4, urinalysis with 2+ leukocytes and 11-20 white blood cells. Urine and blood cultures are pending at this time. CT of the abdomen/pelvis showed slightly dense exophytic renal lesion of the left upper pole measuring 1.7 cm, possibly complex cyst versus mass with recommendations for further follow-up. Also showed several bilateral simple cysts, slightly thickened bladder wall, Witt catheter in place with air in the bladder and enlarged prostate. It is noted that Witt was placed on presentation as the patient reported difficulty with urination but subsequently removed as he only had about 125 cc urine output and there was no concerns for retention. At the time of my evaluation, the patient reports that he is feeling improved. He states for the past several months he has noticed slow stream, dribbling, and dysuria. He denies pushing or straining to void and feels that he typically empties well. He reports that perhaps about 10 years ago he had a TURP in [place], [place]. He has not been established with a urologist in many years. He does continue on tamsulosin 0.8 mg daily. He denies any episodes of hematuria. He denies suprapubic pain or pressure. Review of Systems Review of Systems: All systems reviewed & are unremarkable except as noted in HPI and below PMFSH Past Medical History Medical History (Updated 08/30/23 @ 11:59 by Richa Mcfarlane PA-C) Anxiety Benign prostatic hyperplasia Bipolar 1 disorder Depression Hyperlipidemia Hypertension Posttraumatic stress disorder Tremor Surgical History Surgical History History of back surgery History of placement of nerve stimulator that has since been removed Family History Family History Father Cancer Social History Social History (Updated 08/30/23 @ 00:15 by Angélica Kern PA-C) Social History: Surrogate medical decision maker: Nayely and Timo Leggett, siblings. Code status: Full code. Smoking status: Current every d
[2023-08-30 11:31] VITALS: BMI 22.8
--- NOTE | 2023-08-30 11:49 | PM.PNGS ---
Progress Note: A&P Assessment and Plan (1) Gastroenteritis: Code(s): K52.9 - Noninfective gastroenteritis and colitis, unspecified Status: Acute Assessment and Plan: More likely gastroenteritis than a bowel obstruction. Abd exam benign. Advance diet as tolerated. Will try stimulating his bowels. No indication for surgical management. Plan I have discussed the patient's case and plan of care with Dr. Villegas. Subjective Subjective Date/Time Seen: 08/30/23 11:49 Interval history: Doing well today. Passing more flatus, no BM yet but feels like he needs to have one. Abdominal pain better. No nausea or vomiting. Exam GI: Inspection: non-distended GI Palp: Yes Soft to palpation, No Tenderness to palpation present (GI), No Guarding due to palpation present (GI) and No Rebound tenderness present Auscultation: normal bowel sounds Objective Data Vital Signs Vital Signs: Vital Signs - 24 hr 08/29/23 12:12 08/29/23 12:38 08/29/23 12:52 Temperature 98.0 F Pulse Rate 83 75 72 Respiratory Rate 16 17 Blood Pressure 166/92 H 149/89 H Pulse Oximetry 96 95 Oxygen Delivery Room Air 08/29/23 14:01 08/29/23 14:40 08/29/23 15:00 Temperature Pulse Rate 79 79 84 Respiratory Rate 9 L 14 17 Blood Pressure 144/92 H 145/93 H 145/88 H Pulse Oximetry 97 98 93 Oxygen Delivery 08/29/23 15:31 08/29/23 16:58 08/29/23 17:28 Temperature Pulse Rate 97 86 81 Respiratory Rate 12 17 16 Blood Pressure 145/88 H 143/91 H 141/81 H Pulse Oximetry 100 98 92 Oxygen Delivery 08/29/23 18:50 08/29/23 19:40 08/29/23 20:00 Temperature 97.8 F Pulse Rate 71 Respiratory Rate 18 Blood Pressure 145/77 H Pulse Oximetry 95 Oxygen Delivery Room Air Room Air 08/30/23 06:00 08/30/23 08:45 08/30/23 08:00 Temperature 97.8 F Pulse Rate 68 Respiratory Rate 18 Blood Pressure 136/83 Pulse Oximetry 96 94 Oxygen Delivery Room Air Room Air Intake/Output Intake/Output: Intake & Output 08/27/23 08/28/23 08/29/23 08/30/23 23:59 23:59 23:59 23:59 Intake Total 1050 1110.0 Output Total 0 1900 Balance 1050 -790.0 Meds/Results Medications: Active Medications Generic Name Dose Route Start Last Admin Trade Name Freq PRN Reason Stop Dose Admin Acetaminophen 650 mg 08/30/23 00:16 Acetaminophen 325 Mg Tablet PO Q6H PRN Pain 1-3 Atorvastatin Calcium 40 mg 08/30/23 21:00 Atorvastatin 40 Mg Tablet PO HS RAS Bupropion HCl 150 mg 08/30/23 09:00 08/30/23 08:57 Bupropion Hcl Sr (12 Hr) 150 Mg Tab PO 150 mg DAILY RAS Administration Carbidopa/Levodopa 1 tablet 08/30/23 09:00 08/30/23 08:57 Carbidopa/Levodopa 25/100 Mg Tablet PO 1 tablet TID RAS Administration Divalproex Sodium 500 mg 08/30/23 09:00 08/30/23 08:[address] 250 Mg Tabec PO 500 mg Q12HR RAS Administration Docusate Sodium 100 mg 08/30/23 09:00 08/30/23 08:58 Docusate Sodium 100 Mg Capsule PO 100 mg Q12HR RAS Administration Duloxetine HCl 90 mg 08/30/23 09:00 08/30/23 08:58 Duloxetine Hcl 30 Mg Capsule.Dr PO 90 mg DAILY RAS Administration Ferrous Sulfate 325 mg 08/30/23 09:00 08/30/23 08:58 Ferrous Sulfate [address] PO 09/29/23 08:59 325 mg DAILY RAS Administration Gabapentin 600 mg 08/30/23 00:20 08/30/23 05:26 Gabapentin 300 Mg Capsule PO 600 mg Q6H RAS Administration Guaifenesin 1,200 mg 08/30/23 09:00 08/30/23 08:58 Guaifenesin 12 Hr 600 Mg Tabcr PO 1,200 mg Q12HR RAS Administration Melatonin 5 mg 08/30/23 21:00 Melatonin 5 Mg Tablet PO HS RAS Morphine Sulfate 2 mg 08/30/23 00:16 Morphine Sulfate (*Crx) 4 Mg/Ml Inj IV PUSH Q4H PRN Pain Rated 7-10 Ondansetron HCl 4 mg 08/29/23 16:24 Ondansetron Inj 4 Mg/2 Ml Vial IV PUSH Q4H PRN Nausea Ondansetron HCl 4 mg 08/30/23 00:16 Ondansetron Hcl Odt 4 Mg Tablet PO Q8H PRN
[2023-08-30 14:00] VITALS: BP 137/89; PULSE 80; RESP 20; TEMP 36.7; O2SAT 93
[2023-08-30] MEDS: QUEtiapine FUMARATE 25 MG TABLET PO (20:15)
[2023-08-30] MEDS: PANTOPRAZOLE 40 MG TABLET PO (20:15)
[2023-08-30] MEDS: MELATONIN 5 MG TABLET PO (20:15)
[2023-08-30] MEDS: TAMSULOSIN HCL 0.4 MG CAPSULE 0.8 MG PO (20:15)
[2023-08-30] MEDS: ATORVASTATIN 40 MG TABLET PO (20:15)
[2023-08-30] MEDS: traZODone HCL 50 MG TABLET PO (20:15)
[2023-08-30 21:19] VITALS: BP 151/86; PULSE 81; RESP 18; TEMP 36.6; O2SAT 98
[2023-08-31] MEDS: GABAPENTIN 300 MG CAPSULE 600 MG PO ×4 (00:26→17:38)
[2023-08-31] MEDS: traMADol HCL (*CRX) 50 MG TABLET PO (00:32)
[2023-08-31 05:33] VITALS: BP 112/71; PULSE 77; RESP 20; TEMP 36.7; O2SAT 97
[2023-08-31] MEDS: MORPHINE SULFATE (*CRX) 4 MG/ML INJ 2 MG IV PUSH ×2 (08:30→20:06)
[2023-08-31] MEDS: DOCUSATE SODIUM 100 MG CAPSULE PO ×2 (08:30→20:05)
[2023-08-31] MEDS: DULoxetine HCL 30 MG CAPSULE.DR 90 MG PO (08:31)
[2023-08-31] MEDS: buPROPion HCL SR (12 HR) 150 MG TAB PO (08:31)
[2023-08-31] MEDS: DIVALPROEX SODIUM DR 250 MG TABEC 500 MG PO ×2 (08:31→20:05)
[2023-08-31] MEDS: FERROUS SULFATE 325 MG TABLET DR PO (08:31)
[2023-08-31] MEDS: guaiFENesin 12 HR 600 MG TABCR 1200 MG PO ×2 (08:31→20:05)
[2023-08-31] MEDS: CARBIDOPA/LEVODOPA 25/100 MG TABLET 1 TABLET PO ×3 (08:31→16:55)
--- NOTE | 2023-08-31 08:31 | PM.PNGS ---
Progress Note: A&P Assessment and Plan (1) Partial small bowel obstruction: Code(s): K56.600 - Partial intestinal obstruction, unspecified as to cause Status: Acute Assessment and Plan: exam benign, cont bowel regimen, katie diet s issue (2) Left kidney mass: Code(s): N28.89 - Other specified disorders of kidney and ureter Status: Acute Assessment and Plan: MRI today, urology following Subjective Subjective Date/Time Seen: 08/31/23 08:31 Interval history: katie diet yesterday, NPO this am for MRI, small BM overnight, still c/o lower abd/back pain Review of Systems Review of Systems: All systems reviewed & are unremarkable except as noted in HPI and below Exam Const: General: cooperative, comfortable and no acute distress Resp: Auscultation: clear to auscultation bilaterally Cardio: Rate: regular rate Rhythm: regular rhythm GI: Inspection: normal to inspection and non-distended GI Palp: No abdominal tenderness, Yes Soft to palpation, No Tenderness to palpation present (GI), No Guarding due to palpation present (GI) and No Rigid due to palpation Objective Data Vital Signs Vital Signs: Vital Signs - 24 hr 08/30/23 08:45 08/30/23 14:00 08/30/23 21:19 Temperature 36.7 C 36.6 C Pulse Rate 80 81 Respiratory Rate 20 18 Blood Pressure 137/89 151/86 H Pulse Oximetry 94 93 98 Oxygen Delivery Room Air 08/30/23 20:00 08/31/23 05:33 Temperature 36.7 C Pulse Rate 77 Respiratory Rate 20 Blood Pressure 112/71 Pulse Oximetry 97 Oxygen Delivery Room Air Intake/Output Intake/Output: Intake & Output 08/28/23 08/29/23 08/30/23 08/31/23 23:59 23:59 23:59 23:59 Intake Total 1050 1650.0 960 Output Total 0 5400 500 Balance 1050 -3750.0 460 Meds/Results Medications: Active Medications Generic Name Dose Route Start Last Admin Trade Name Freq PRN Reason Stop Dose Admin Acetaminophen 650 mg 08/30/23 00:16 Acetaminophen 325 Mg Tablet PO Q6H PRN Pain 1-3 Atorvastatin Calcium 40 mg 08/30/23 21:00 08/30/23 20:15 Atorvastatin 40 Mg Tablet PO 40 mg HS RAS Administration Bupropion HCl 150 mg 08/30/23 09:00 08/31/23 08:31 Bupropion Hcl Sr (12 Hr) 150 Mg Tab PO 150 mg DAILY RAS Administration Carbidopa/Levodopa 1 tablet 08/30/23 09:00 08/31/23 08:31 Carbidopa/Levodopa 25/100 Mg Tablet PO 1 tablet TID RAS Administration Divalproex Sodium 500 mg 08/30/23 09:00 08/31/23 08:[address] 250 Mg Tabec PO 500 mg Q12HR RAS Administration Docusate Sodium 100 mg 08/30/23 09:00 08/31/23 08:30 Docusate Sodium 100 Mg Capsule PO 100 mg Q12HR RAS Administration Duloxetine HCl 90 mg 08/30/23 09:00 08/31/23 08:31 Duloxetine Hcl 30 Mg Capsule.Dr PO 90 mg DAILY RAS Administration Ferrous Sulfate 325 mg 08/30/23 09:00 08/31/23 08:31 Ferrous Sulfate [address] PO 09/29/23 08:59 325 mg DAILY RAS Administration Gabapentin 600 mg 08/30/23 00:20 08/31/23 05:33 Gabapentin 300 Mg Capsule PO 600 mg Q6H RAS Administration Guaifenesin 1,200 mg 08/30/23 09:00 08/31/23 08:31 Guaifenesin 12 Hr 600 Mg Tabcr PO 1,200 mg Q12HR RAS Administration Melatonin 5 mg 08/30/23 21:00 08/30/23 20:15 Melatonin 5 Mg Tablet PO 5 mg HS RAS Administration Morphine Sulfate 2 mg 08/30/23 00:16 08/31/23 08:30 Morphine Sulfate (*Crx) 4 Mg/Ml Inj IV PUSH 2 mg Q4H PRN Administration Pain Rated 7-10 Ondansetron HCl 4 mg 08/29/23 16:24 Ondansetron Inj 4 Mg/2 Ml Vial IV PUSH Q4H PRN Nausea Ondansetron HCl 4 mg 08/30/23 00:16 Ondansetron Hcl Odt 4 Mg Tablet PO Q8H PRN Nausea Pantoprazole Sodium 40 mg 08/30/23 21:00 08/30/23 20:15 Pantoprazole 40 Mg Tablet PO 40 mg HS RAS Administration Polyethylene Glycol 17 gm 08/30/23 00:16 Polyethylene Glycol 3350 17 Gm Powd.Pack PO DAILY PRN Constipa
--- NOTE | 2023-08-31 09:10 | WPDUROPN2 ---
Progress Note: A&P Assessment and Plan (1) Left kidney mass: Code(s): N28.89 - Other specified disorders of kidney and ureter Status: Acute Assessment and Plan: CT of abdomen/pelvis shows 1.7 cm left upper pole mass Awaiting MRI for further evaluation (2) Benign prostatic hyperplasia with lower urinary tract symptoms: Code(s): N40.1 - Benign prostatic hyperplasia with lower urinary tract symptoms Status: Chronic Assessment and Plan: Chronic issue managed with tamsulosin which will be continued Remote history of TURP. Given recurrence of bothersome LUTS, will benefit from outpatient evaluation to consider repeat BPH procedure He is voiding well at this time. Bladder scan as needed to ensure no retention (3) Abnormal urinalysis: Code(s): R82.90 - Unspecified abnormal findings in urine Status: Acute Assessment and Plan: Urine culture negative, no need for ongoing antibiotics. (4) Partial small bowel obstruction: Code(s): K56.600 - Partial intestinal obstruction, unspecified as to cause Status: Acute Assessment and Plan: Being managed by General surgery and primary team Subjective Subjective Date/Time Seen: 08/31/23 09:10 Interval history: Erwin is feeling well today. He is voiding without difficulty. Denies dysuria, hematuria, or feelings of incomplete emptying. He is tolerating his liquid diet. No N/V/F/C. Review of Systems Review of Systems: All systems reviewed & are unremarkable except as noted in HPI and below Exam Narrative: General: Awake, alert, comfortable, no acute distress HEENT: Normocephalic, atraumatic, sclerae anicteric Respiratory: Normal respiratory effort, no accessory muscle use Abdomen: Nondistended, soft, nontender Skin: Normal coloration, warm and dry Neurologic: No focal neuro deficits noted Psychiatric: Appropriate mood and affect, judgment and insight intact Objective Data Vital Signs Vital Signs: Vital Signs - 24 hr 08/30/23 14:00 08/30/23 21:19 08/30/23 20:00 Temperature 98.0 F 97.9 F Pulse Rate 80 81 Respiratory Rate 20 18 Blood Pressure 137/89 151/86 H Pulse Oximetry 93 98 Oxygen Delivery Room Air 08/31/23 05:33 Temperature 98.0 F Pulse Rate 77 Respiratory Rate 20 Blood Pressure 112/71 Pulse Oximetry 97 Oxygen Delivery Intake/Output Intake/Output: Intake & Output 08/28/23 08/29/23 08/30/23 08/31/23 23:59 23:59 23:59 23:59 Intake Total 1050 1650.0 960 Output Total 0 5400 500 Balance 1050 -3750.0 460 Meds/Results Medications: Active Medications Generic Name Dose Route Start Last Admin Trade Name Freq PRN Reason Stop Dose Admin Acetaminophen 650 mg 08/30/23 00:16 Acetaminophen 325 Mg Tablet PO Q6H PRN Pain 1-3 Atorvastatin Calcium 40 mg 08/30/23 21:00 08/30/23 20:15 Atorvastatin 40 Mg Tablet PO 40 mg HS RAS Administration Bupropion HCl 150 mg 08/30/23 09:00 08/31/23 08:31 Bupropion Hcl Sr (12 Hr) 150 Mg Tab PO 150 mg DAILY RAS Administration Carbidopa/Levodopa 1 tablet 08/30/23 09:00 08/31/23 08:31 Carbidopa/Levodopa 25/100 Mg Tablet PO 1 tablet TID RAS Administration Divalproex Sodium 500 mg 08/30/23 09:00 08/31/23 08:[address] 250 Mg Tabec PO 500 mg Q12HR RAS Administration Docusate Sodium 100 mg 08/30/23 09:00 08/31/23 08:30 Docusate Sodium 100 Mg Capsule PO 100 mg Q12HR RAS Administration Duloxetine HCl 90 mg 08/30/23 09:00 08/31/23 08:31 Duloxetine Hcl 30 Mg Capsule.Dr PO 90 mg DAILY RAS Administration Ferrous Sulfate 325 mg 08/30/23 09:00 08/31/23 08:31 Ferrous Sulfate [address] PO 09/29/23 08:59 325 mg DAILY RAS Administration Gabapentin 600 mg 08/30/23 00:20 08/31/23 05:33 Gabapentin 300 Mg Capsule PO 600 mg Q6H RAS Administration Guaifenesin 1,200 mg 08/30/23 09:00 08/31/23 08:31 Guaif
[2023-08-31 14:00] VITALS: BP 135/98; PULSE 109; RESP 18; TEMP 36.8; O2SAT 100
--- NOTE | 2023-08-31 15:41 | PM.IMPN ---
Progress Note: A&P Assessment and Plan (1) Gastroenteritis: Code(s): K52.9 - Noninfective gastroenteritis and colitis, unspecified Status: Acute Assessment and Plan: He continues to pass flatus, but denies BM at this time. - CT abdomen/pelvis: No dilated small bowel loops in the upper abdomen suggestive of partial or early obstruction. Obstructing lesion is not demonstrated. Other differential includes the area and enteritis - Per surgery, no surgical intervention required at this time. - Clear liquid diet, advance as tolerated - Diet tolerated and up to regular diet (2) Left kidney mass: Code(s): N28.89 - Other specified disorders of kidney and ureter Status: Acute Assessment and Plan: CT abdomen/pelvis: Mass in the left kidney upper pole. - Urology consulted MRI negative for any acute findings other than a hemorrhagic cyst No further needs noted (3) Benign prostatic hyperplasia with lower urinary tract symptoms: Code(s): N40.1 - Benign prostatic hyperplasia with lower urinary tract symptoms Status: Chronic Assessment and Plan: Patient reports increased urgency, dysuria, and dribbling with urination. He has a history of TURP. - Urology consulted Benefit from outpatient evaluation to consider repeat BPH procedure Bladder scan as needed to ensure no retention - Continue tamsulosin 0.8 mg daily (4) Hypertension: Code(s): I10 - Essential (primary) hypertension Status: Acute Assessment and Plan: Chronic, stable. - Monitor - BP 112/71 - Continue to trend and monitor (5) Depression with anxiety: Code(s): F41.8 - Other specified anxiety disorders Status: Acute Assessment and Plan: Continue home medications. (6) Tobacco abuse: Code(s): Z72.0 - Tobacco use Status: Acute Assessment and Plan: Denies the need for nicotine patch at this time. Time Spent With Patient Time: 48 minutes Time with patient: Greater than 35 minutes Subjective Date/time seen: 08/31/23 15:41 Interval history: 68-year-old male with tremors, hypertension, hyperlipidemia, gastroesophageal reflux disease, benign prostatic hyperplasia, borderline diabetes, anxiety, depression, bipolar disorder, and posttraumatic stress disorder who presented to the emergency department via EMS from [place] for evaluation of weakness and abdominal discomfort. Patient is doing ok. He is denying any chest pain, shortness of breath, nausea, vomiting, diarrhea or constipation. He is able to go but he is being switched to a different facility. Awaiting further acceptance Review of Systems Review of Systems: All systems reviewed & are unremarkable except as noted in HPI and below Exam Narrative: General: well-nourished, well-appearing 68-year-old male, sitting up in bed, comfortable, NARD Neuro: awake, alert and oriented x4, speech clear, no focal neuro deficits noted HEENMT: normocephalic, atraumatic, EOMI, sclerae anicteric, moist oral mucosa Respiratory: Clear to auscultation bilaterally without crackles, rhonchi or wheezes, nonlabored breathing Cardio: regular rate, regular rhythm with S1-S2 Abdomen: nondistended, normoactive bowel sounds, soft, nontender to palpation Extremities: no edema, erythema, or tenderness to palpation, DP pulses 2+ bilaterally Skin: no rashes or lesions, warm and dry Psych: appropriate mood and affect, judgment and insight intact Objective Data Vital Signs Vital Signs: Vital Signs - 24 hr 08/30/23 21:19 08/30/23 20:00 08/31/23 05:33 Temperature 97.9 F 98.0 F Pulse Rate 81 77 Respiratory Rate 18 20 Blood Pressure 151/86 H 112/71 Pulse Oximetry 98 97 Oxygen Delivery Room Air 08/31/23 08:00 08/31/23 14:00 Temperature 98.2 F Pulse Rate 109 H Respiratory Rate 18 Blood Pressure 135/98 H Pulse Oximetry 100 Oxygen Delivery Room Air Intake/Output Intake/Output: Intake & Output
[2023-08-31 16:02] LABS: SARS-CoV-2 RNA PCR Negative (Negative)
[2023-08-31] MEDS: HYDROcodone/acetaminophen (*CRX) 5-325 MG TABLET 1 TAB PO (16:55)
[2023-08-31] MEDS: traZODone HCL 50 MG TABLET PO (20:05)
[2023-08-31] MEDS: QUEtiapine FUMARATE 25 MG TABLET PO (20:05)
[2023-08-31] MEDS: MELATONIN 5 MG TABLET PO (20:05)
[2023-08-31] MEDS: PANTOPRAZOLE 40 MG TABLET PO (20:05)
[2023-08-31] MEDS: ATORVASTATIN 40 MG TABLET PO (20:05)
[2023-08-31] MEDS: TAMSULOSIN HCL 0.4 MG CAPSULE 0.8 MG PO (20:05)
[2023-08-31 20:16] VITALS: BP 140/90; PULSE 88; RESP 18; TEMP 36.6; O2SAT 95
[2023-08-31 23:21] VITALS: O2SAT 95
[2023-09-01] MEDS: GABAPENTIN 300 MG CAPSULE 600 MG PO ×3 (01:42→12:39)
[2023-09-01] MEDS: HYDROcodone/acetaminophen (*CRX) 5-325 MG TABLET 1 TAB PO ×2 (01:44→12:39)
[2023-09-01 04:57] VITALS: BP 101/71; PULSE 77; RESP 18; TEMP 36.6; O2SAT 94
[2023-09-01] MEDS: MORPHINE SULFATE (*CRX) 4 MG/ML INJ 2 MG IV PUSH (05:32)
--- NOTE | 2023-09-01 08:04 | PM.DS ---
DS: Admitting Diagnosis Discharge Date 09/01/2023 Admitting Diagnosis Gastroenteritis DS: Discharge Diagnosis Discharge Diagnosis (1) Gastroenteritis: Code(s): K52.9 - Noninfective gastroenteritis and colitis, unspecified Status: Acute Assessment and Plan: He continues to pass flatus, but denies BM at this time. - CT abdomen/pelvis: No dilated small bowel loops in the upper abdomen suggestive of partial or early obstruction. Obstructing lesion is not demonstrated. Other differential includes the area and enteritis - Per surgery, no surgical intervention required at this time. - Clear liquid diet, advance as tolerated (2) Left kidney mass: Code(s): N28.89 - Other specified disorders of kidney and ureter Status: Acute Assessment and Plan: CT abdomen/pelvis: Mass in the left kidney upper pole. - Urology consulted MRI negative for any acute findings other than a hemorrhagic cyst No further needs noted (3) Benign prostatic hyperplasia with lower urinary tract symptoms: Code(s): N40.1 - Benign prostatic hyperplasia with lower urinary tract symptoms Status: Chronic Assessment and Plan: Patient reports increased urgency, dysuria, and dribbling with urination. He has a history of TURP. - Urology consulted Benefit from outpatient evaluation to consider repeat BPH procedure Bladder scan as needed to ensure no retention - Continue tamsulosin 0.8 mg daily (4) Hypertension: Code(s): I10 - Essential (primary) hypertension Status: Acute Assessment and Plan: Chronic, stable. - Monitor - BP 112/71 - Continue to trend and monitor (5) Depression with anxiety: Code(s): F41.8 - Other specified anxiety disorders Status: Acute Assessment and Plan: Continue home medications. (6) Tobacco abuse: Code(s): Z72.0 - Tobacco use Status: Acute Assessment and Plan: Denies the need for nicotine patch at this time. DS: Summary Hospital Course Hospital Course: Patient is 68-year-old male with a past medical history of tremors, hypertension, hyperlipidemia, GERD, BP a diabetes, anxiety, depression who presented the ED from [place] for evaluation of weakness and abdominal pain. CT did show related pressure shows small bowel obstruction versus enteritis in the a.m. mass in left upper pole of the kidney. Urology was consulted and did recommend getting an MRI. MRI did not show anything further than a hemorrhagic cyst. GI was consulted and recommended no further recommendations. General surgery was also consulted and patient went for a small-bowel follow-through which did not show any current obstructions. Chest x-ray showed mild atelectasis. Patient was given a g of ceftriaxone for possible UTI. Patient did have a diet and tolerated it well. He denies any current chest pain, shortness a breath, nausea, vomiting, diarrhea constipation. Patient is requesting to be placed at a different facility as he is not happy with his current 1. Was able to find him placement [facility] and that works well. Patient is being discharged to that facility at this time. Status at Discharge Functional status at discharge: independent ambulation Overall status at discharge: patient is progressing back to baseline Time Spent with Patient Time attestation: Total time spent providing and/or coordinating discharge services: 41 minutes Time spent: Greater than 30 minutes Specific discharge activities: Diagnostic testing, chart review, developing a treatment plan, education, care coordination documentation, physical exam, result review Exam Narrative: General: well-nourished, well-appearing 68-year-old male, sitting up in bed, comfortable, NARD Neuro: awake, alert and oriented x4, speech clear, no focal neuro deficits noted HEENMT: normocephalic, atraumatic, EOMI, sclerae anicteric, moist oral mucosa Respiratory: Clear to auscultation bilaterally wi
--- NOTE | 2023-09-01 08:31 | PM.PNGS ---
Progress Note: A&P Assessment and Plan (1) Partial obstruction of small intestine: Code(s): K56.600 - Partial intestinal obstruction, unspecified as to cause Status: Acute Assessment and Plan: resolved, exam benign, +bowel fxn, katie diet, MRI reviewed, issues c chronic constipation, will need bowel regimen, f/u c GI as outpt, no acute surgical issues, will s/o, call c ?s, issues Subjective Subjective Date/Time Seen: 09/01/23 08:31 Interval history: no acute issues, katie diet, +bowel fxn Review of Systems Review of Systems: All systems reviewed & are unremarkable except as noted in HPI and below Exam Const: General: cooperative, comfortable and no acute distress Resp: Auscultation: clear to auscultation bilaterally Cardio: Rate: regular rate Rhythm: regular rhythm GI: Inspection: normal to inspection and non-distended GI Palp: No abdominal tenderness, Yes Soft to palpation, No Tenderness to palpation present (GI), No Guarding due to palpation present (GI) and No Rigid due to palpation Objective Data Vital Signs Vital Signs: Vital Signs - 24 hr 08/31/23 14:00 08/31/23 20:16 08/31/23 20:00 Temperature 36.8 C 36.6 C Pulse Rate 109 H 88 Respiratory Rate 18 18 Blood Pressure 135/98 H 140/90 Pulse Oximetry 100 95 Oxygen Delivery Room Air 08/31/23 23:21 09/01/23 04:57 Temperature 36.6 C Pulse Rate 77 Respiratory Rate 18 Blood Pressure 101/71 Pulse Oximetry 95 94 Oxygen Delivery Room Air Intake/Output Intake/Output: Intake & Output 08/29/23 08/30/23 08/31/23 09/01/23 23:59 23:59 23:59 23:59 Intake Total 1050 1650.0 2700 480 Output Total 0 5400 1825 300 Balance 1050 -3750.0 875 180 Meds/Results Medications: Active Medications Generic Name Dose Route Start Last Admin Trade Name Freq PRN Reason Stop Dose Admin Acetaminophen 650 mg 08/30/23 00:16 Acetaminophen 325 Mg Tablet PO Q6H PRN Pain 1-3 Hydrocodone Bitart/Acetaminophen 1 tab 08/31/23 15:40 09/01/23 01:44 Hydrocodone/Acetaminophen (*Crx) 5-325 Mg Tablet PO 1 tab Q6H PRN Administration Pain Rated 4-6 Atorvastatin Calcium 40 mg 08/30/23 21:00 08/31/23 20:05 Atorvastatin 40 Mg Tablet PO 40 mg HS RAS Administration Bupropion HCl 150 mg 08/30/23 09:00 08/31/23 08:31 Bupropion Hcl Sr (12 Hr) 150 Mg Tab PO 150 mg DAILY RAS Administration Carbidopa/Levodopa 1 tablet 08/30/23 09:00 08/31/23 16:55 Carbidopa/Levodopa 25/100 Mg Tablet PO 1 tablet TID RAS Administration Divalproex Sodium 500 mg 08/30/23 09:00 08/31/23 20:[address] 250 Mg Tabec PO 500 mg Q12HR RAS Administration Docusate Sodium 100 mg 08/30/23 09:00 08/31/23 20:05 Docusate Sodium 100 Mg Capsule PO 100 mg Q12HR RAS Administration Duloxetine HCl 90 mg 08/30/23 09:00 08/31/23 08:31 Duloxetine Hcl 30 Mg Capsule.Dr PO 90 mg DAILY RAS Administration Ferrous Sulfate 325 mg 08/30/23 09:00 08/31/23 08:31 Ferrous Sulfate [address] PO 09/29/23 08:59 325 mg DAILY RAS Administration Gabapentin 600 mg 08/30/23 00:20 09/01/23 05:27 Gabapentin 300 Mg Capsule PO 600 mg Q6H RAS Administration Guaifenesin 1,200 mg 08/30/23 09:00 08/31/23 20:05 Guaifenesin 12 Hr 600 Mg Tabcr PO 1,200 mg Q12HR RAS Administration Melatonin 5 mg 08/30/23 21:00 08/31/23 20:05 Melatonin 5 Mg Tablet PO 5 mg HS RAS Administration Morphine Sulfate 2 mg 08/30/23 00:16 09/01/23 05:32 Morphine Sulfate (*Crx) 4 Mg/Ml Inj IV PUSH 2 mg Q4H PRN Administration Pain Rated 7-10 Ondansetron HCl 4 mg 08/29/23 16:24 Ondansetron Inj 4 Mg/2 Ml Vial IV PUSH Q4H PRN Nausea Ondansetron HCl 4 mg 08/30/23 00:16 Ondansetron Hcl Odt 4 Mg Tablet PO Q8H PRN Nausea Pantoprazole Sodium 40 mg 08/30/23 21:00 08/31/23 20:05 Pantoprazole 40 Mg Tablet PO 40 mg HS RAS Administration Polye
[2023-09-01] MEDS: FERROUS SULFATE 325 MG TABLET DR PO (08:33)
[2023-09-01] MEDS: buPROPion HCL SR (12 HR) 150 MG TAB PO (08:33)
[2023-09-01] MEDS: DOCUSATE SODIUM 100 MG CAPSULE PO (08:33)
[2023-09-01] MEDS: DIVALPROEX SODIUM DR 250 MG TABEC 500 MG PO (08:33)
[2023-09-01] MEDS: DULoxetine HCL 30 MG CAPSULE.DR 90 MG PO (08:33)
[2023-09-01] MEDS: guaiFENesin 12 HR 600 MG TABCR 1200 MG PO (08:33)
[2023-09-01] MEDS: CARBIDOPA/LEVODOPA 25/100 MG TABLET 1 TABLET PO ×3 (08:34→16:52)
--- NOTE | 2023-09-01 09:00 | WPDUROPN2 ---
Progress Note: A&P Assessment and Plan (1) Left kidney mass: Code(s): N28.89 - Other specified disorders of kidney and ureter Status: Acute Assessment and Plan: CT of abdomen/pelvis shows 1.7 cm left upper pole mass Reviewed MRI, this is consistent with hemorrhagic cyst and requires no further evaluation (2) Benign prostatic hyperplasia with lower urinary tract symptoms: Code(s): N40.1 - Benign prostatic hyperplasia with lower urinary tract symptoms Status: Chronic Assessment and Plan: Chronic issue managed with tamsulosin which will be continued Remote history of TURP. Given recurrence of bothersome LUTS, will benefit from outpatient evaluation to consider repeat BPH procedure He is voiding well at this time. Bladder scan as needed to ensure no retention (3) Abnormal urinalysis: Code(s): R82.90 - Unspecified abnormal findings in urine Status: Acute Assessment and Plan: Urine culture negative, no need for ongoing antibiotics. (4) Partial small bowel obstruction: Code(s): K56.600 - Partial intestinal obstruction, unspecified as to cause Status: Acute Assessment and Plan: Being managed by General surgery and primary team Subjective Subjective Date/Time Seen: 09/01/23 09:00 Review of Systems Review of Systems: All systems reviewed & are unremarkable except as noted in HPI and below Exam Narrative: General: Awake, alert, comfortable, no acute distress HEENT: Normocephalic, atraumatic, sclerae anicteric Respiratory: Normal respiratory effort, no accessory muscle use Abdomen: Nondistended, soft, nontender Skin: Normal coloration, warm and dry Neurologic: No focal neuro deficits noted Psychiatric: Appropriate mood and affect, judgment and insight intact Objective Data Vital Signs Vital Signs: Vital Signs - 24 hr 08/31/23 14:00 08/31/23 20:16 08/31/23 20:00 Temperature 98.2 F 97.8 F Pulse Rate 109 H 88 Respiratory Rate 18 18 Blood Pressure 135/98 H 140/90 Pulse Oximetry 100 95 Oxygen Delivery Room Air 08/31/23 23:21 09/01/23 04:57 Temperature 97.9 F Pulse Rate 77 Respiratory Rate 18 Blood Pressure 101/71 Pulse Oximetry 95 94 Oxygen Delivery Room Air Intake/Output Intake/Output: Intake & Output 08/29/23 08/30/23 08/31/23 09/01/23 23:59 23:59 23:59 23:59 Intake Total 1050 1650.0 2700 480 Output Total 0 5400 1825 300 Balance 1050 -3750.0 875 180 Meds/Results Medications: Active Medications Generic Name Dose Route Start Last Admin Trade Name Freq PRN Reason Stop Dose Admin Acetaminophen 650 mg 08/30/23 00:16 Acetaminophen 325 Mg Tablet PO Q6H PRN Pain 1-3 Hydrocodone Bitart/Acetaminophen 1 tab 08/31/23 15:40 09/01/23 01:44 Hydrocodone/Acetaminophen (*Crx) 5-325 Mg Tablet PO 1 tab Q6H PRN Administration Pain Rated 4-6 Atorvastatin Calcium 40 mg 08/30/23 21:00 08/31/23 20:05 Atorvastatin 40 Mg Tablet PO 40 mg HS RAS Administration Bupropion HCl 150 mg 08/30/23 09:00 09/01/23 08:33 Bupropion Hcl Sr (12 Hr) 150 Mg Tab PO 150 mg DAILY RAS Administration Carbidopa/Levodopa 1 tablet 08/30/23 09:00 09/01/23 08:34 Carbidopa/Levodopa 25/100 Mg Tablet PO 1 tablet TID RAS Administration Divalproex Sodium 500 mg 08/30/23 09:00 09/01/23 08:[address] 250 Mg Tabec PO 500 mg Q12HR RAS Administration Docusate Sodium 100 mg 08/30/23 09:00 09/01/23 08:33 Docusate Sodium 100 Mg Capsule PO 100 mg Q12HR RAS Administration Duloxetine HCl 90 mg 08/30/23 09:00 09/01/23 08:33 Duloxetine Hcl 30 Mg Capsule.Dr PO 90 mg DAILY RAS Administration Ferrous Sulfate 325 mg 08/30/23 09:00 09/01/23 08:33 Ferrous Sulfate [address] PO 09/29/23 08:59 325 mg DAILY RAS Administration Gabapentin 600 mg 08/30/23 00:20 09/01/23 05:27 Gabapentin 300 Mg Capsule PO 600 mg
[2023-09-01 14:00] VITALS: BP 128/70; PULSE 72; RESP 18; TEMP 36.6; O2SAT 95
--- NOTE | 2023-09-01 14:27 | PM.IMPN ---
Progress Note: A&P Assessment and Plan (1) Gastroenteritis: Code(s): K52.9 - Noninfective gastroenteritis and colitis, unspecified Status: Acute Assessment and Plan: He continues to pass flatus, but denies BM at time of admission - CT abdomen/pelvis: No dilated small bowel loops in the upper abdomen suggestive of partial or early obstruction. Obstructing lesion is not demonstrated. Other differential includes the area and enteritis - Per surgery, no surgical intervention required at this time. - Tolerating diet (2) Left kidney mass: Code(s): N28.89 - Other specified disorders of kidney and ureter Status: Acute Assessment and Plan: CT abdomen/pelvis: Mass in the left kidney upper pole. - Urology consulted MRI negative for any acute findings other than a hemorrhagic cyst No further needs noted (3) Benign prostatic hyperplasia with lower urinary tract symptoms: Code(s): N40.1 - Benign prostatic hyperplasia with lower urinary tract symptoms Status: Chronic Assessment and Plan: Patient reports increased urgency, dysuria, and dribbling with urination. He has a history of TURP. - Urology consulted Benefit from outpatient evaluation to consider repeat BPH procedure Bladder scan as needed to ensure no retention - Continue tamsulosin 0.8 mg daily (4) Hypertension: Code(s): I10 - Essential (primary) hypertension Status: Acute Assessment and Plan: Chronic, stable. - Monitor - BP 101/71 - Continue to trend and monitor (5) Depression with anxiety: Code(s): F41.8 - Other specified anxiety disorders Status: Acute Assessment and Plan: Continue home medications. (6) Tobacco abuse: Code(s): Z72.0 - Tobacco use Status: Acute Assessment and Plan: Denies the need for nicotine patch at this time. Time Spent With Patient Time: 41 minutes Time with patient: Greater than 35 minutes Subjective Date/time seen: 09/01/23 14:27 Interval history: 68-year-old male with tremors, hypertension, hyperlipidemia, gastroesophageal reflux disease, benign prostatic hyperplasia, borderline diabetes, anxiety, depression, bipolar disorder, and posttraumatic stress disorder who presented to the emergency department via EMS from [place] for evaluation of weakness and abdominal discomfort. Patient is doing okay he denies any current chest pain, shortness a breath, nausea, vomiting, diarrhea constipation. Patient states that he is just waiting for everything to go through did explain to him that if it is still pending by tomorrow he will need to go back to [place] and transition from there. Review of Systems Review of Systems: All systems reviewed & are unremarkable except as noted in HPI and below Exam Narrative: General: Awake, alert, comfortable, no acute distress HEENT: Normocephalic, atraumatic, sclerae anicteric Respiratory: Normal respiratory effort, no accessory muscle use, wheeze, crackles or rhonchi noted Abdomen: Nondistended, soft, nontender Skin: Normal coloration, warm and dry Neurologic: No focal neuro deficits noted Psychiatric: Appropriate mood and affect, judgment and insight intact Objective Data Vital Signs Vital Signs: Vital Signs - 24 hr 08/31/23 20:16 08/31/23 20:00 08/31/23 23:21 Temperature 97.8 F Pulse Rate 88 Respiratory Rate 18 Blood Pressure 140/90 Pulse Oximetry 95 95 Oxygen Delivery Room Air Room Air 09/01/23 04:57 09/01/23 08:00 Temperature 97.9 F Pulse Rate 77 Respiratory Rate 18 Blood Pressure 101/71 Pulse Oximetry 94 Oxygen Delivery Room Air Intake/Output Intake/Output: Intake & Output 08/29/23 08/30/23 08/31/23 09/01/23 23:59 23:59 23:59 23:59 Intake Total 1050 1650.0 2700 1182 Output Total 0 5400 1825 300 Balance 1050 -3750.0 875 882 Meds/Results Medications: Active Medications Generic Name Dose Route Start Last Admin
[2023-09-01] MEDS: traMADol HCL (*CRX) 50 MG TABLET PO (16:57)
== END 2023-09-01 17:35 ==
LOC: ANHED 13:18 → ANH2MED 22:06
PROVIDERS: Nurse Practitioner; Admitting Provider Internal Medicine; Emergency Provider General Practice; Visit Provider Student in an Organized Health Care Education/Training Program
DX: K52.9 Noninfective gastroenteritis and colitis, unspecified (principal); N28.89 Other specified disorders of kidney and ureter; R25.1 Tremor, unspecified; I10 Essential (primary) hypertension; E78.5 Hyperlipidemia, unspecified; K21.9 Gastro-esophageal reflux disease without esophagitis; N40.1 Benign prostatic hyperplasia with lower urinary tract symptoms; R39.15 Urgency of urination; F43.10 Post-traumatic stress disorder, unspecified; Z20.822 Contact with and (suspected) exposure to COVID-19; R73.03 Prediabetes; F31.9 Bipolar disorder, unspecified; F41.9 Anxiety disorder, unspecified; F17.210 Nicotine dependence, cigarettes, uncomplicated; F12.90 Cannabis use, unspecified, uncomplicated; Z79.82 Long term (current) use of aspirin
CPT/HCPCS: 36415; 71046; 74177; 74183; 80053; 81001; 83605; 83690; 83735; 84484; 85025; 85610; 85730; 87086; 87635; 87636; 93005; 96361; 96365; 96375; 96376; 99285; A9270; A9577; G0378; J0696; J1170; J2270; J2405; J7030; Q9967

== ENCOUNTER 2023-11-02 02:15 | Emergency (ER) | payer MEDICARE, SELFPAY ==
[2023-11-02] VITALS (26 sets, daily range): BP systolic 110–147; BP diastolic 80–108; PULSE 60–81; RESP 10–18; TEMP 36.4–36.6; O2SAT 93–100
--- NOTE | ~2023-11-02 | XR_ITS ---
EXAMINATION: XR chest 1V portable DATE: 11/02/2023 03:04 INDICATION: Chest pain midsternal. TECHNIQUE: A single frontal view of the chest was obtained. COMPARISON: Chest 2 views 08/29/2023, CT abdomen and pelvis 08/29/2023 FINDINGS: There is no pneumonia, pleural effusion, or pneumothorax. The heart size is normal. There a re old healed right rib fractures. IMPRESSION: 1. No acute cardiopulmonary disease. Reviewed, dictated and finalized at location A.
--- NOTE | 2023-11-02 01:50 | ECG_ITS ---
Test Date: 2023-11-02 01:40:25 Measurements Intervals [place] Rate: 67 P: 52 [place]: 189 QRS: -50 QRSD: 137 T: 12 QT: 436 QTc: 462 Interpretive Statements SINUS RHYTHM WITH OCCASIONAL SUPRAVENTRICULAR PREMATURE COMPLEXES LEFT AXIS DEVIATION [QRS AXIS < -30] RIGHT BUNDLE BRANCH BLOCK [120+ ms QRS DURATION, UPRIGHT V1, 40+ ms S IN I/aVL/V4/V5/V6] Compared to ECG 08/29/2023 13:07:19 NO SIGNIFICANT CHANGES Electronically Signed On 11-02-2023 15:59:05 CDT by Es Puckett M.D.
[2023-11-02 02:08] LABS: Basophils Percent Auto 0.7 % (0.2-1.2); Eosinophils Absolute Auto 0.2 K/mm3 (0-0.3); Eosinophils Percent Auto 3.9 % (0-4.4); Hematocrit 39.2 % (42.0-52.0); Hemoglobin 13.1 g/dL (14.0-18.0); Immature Granulocyte Absolute 0.01 K/mm3 (0.00-0.031); Immature Granulocyte Percent A 0.2 % (0-0.5); Immature Platelet Fraction Pct 9.2 % (0.9-11.2); Lymphocytes Absolute Auto 1.81 K/mm3 (0.9-3.2); Mean Corpuscular HGB Conc 33.4 g/dl (32-36); Mean Corpuscular Hemoglobin 33.1 pg (26-34); Mean Platelet Volume 11.3 fl (7.4-10.4); Monocytes Absolute Auto 0.4 K/mm3 (0.1-0.6); Monocytes Percent Auto 9.8 % (2.6-8.5); Neutrophils Percent Auto 44.4 % (45.5-73.1); Platelet Count Result 91 k/mm3 (150-375); Red Blood Count 3.96 M/mm3 (4.6-6.20); Red Cell Distribution Width 13.6 % (11.5-14.5); White Blood Count 4.4 K/mm3 (4.5-10.0)
[2023-11-02 02:16] LABS: Alanine Aminotransferase 7 U/L (6-50); Albumin Level 4.6 g/dL (3.5-5.1); Alkaline Phosphatase 83 U/L (38-126); Anion Gap 12 mmol/L (4-12); Aspartate Amino Transferase 29 U/L (17-59); Bilirubin,Total 0.7 mg/dL (0.2-1.3); Blood Urea Nitrogen 18 mg/dL (9-20); Calcium 9.6 mg/dL (8.4-10.2); Carbon Dioxide 27 mmol/L (22-30); Chloride 98 mmol/L (98-107); Estimated CRCL calculation 51 ml/min; Estimated Glomerular Filt Rate 51; Glucose 85 mg/dL (65-110); Lipase 46 U/L (23-300); Sodium 137 mmol/L (137-145)
[2023-11-02 02:19] LABS: Prothrombin Time 13.5 Seconds (11.1-14.7)
[2023-11-02 02:20] LABS: Partial Thromboplastin Time 35.1 Seconds (22.3-36.8)
--- NOTE | 2023-11-02 02:21 | ED.GENADULT ---
HPI - General Adult General Chief complaint: Chest Pain Stated complaint: CP AND BACK PAIN History of Present Illness HPI narrative: patient is a 68-year-old gentleman who presents emergency department with chief complaint of chest pain. The patient reports he has sharp pain in his chest that then radiated to his low back the patient states he always has chronic low back pain and takes tramadol for this. The patient reports that he has had episodes of chest pain before in the past has chronic renal insufficiency the patient had a stress test in 2022 the not require further intervention Related Data Home Medications Medication Instructions Recorded Confirmed bupropion HCl 150 mg tablet,12 hr 150 mg PO DAILY 02/10/20 08/29/23 sustained-release gabapentin 100 mg capsule 600 mg PO Q6H 02/10/20 08/29/23 tamsulosin 0.4 mg capsule 0.8 mg PO HS 02/10/20 08/29/23 divalproex 500 mg tablet,delayed 500 mg PO BID 09/02/20 08/29/23 release pantoprazole 40 mg tablet,delayed 40 mg PO HS 09/02/20 08/29/23 release acetaminophen 650 mg tablet 650 mg PO Q6H PRN Pain 10/25/22 08/29/23 aspirin 81 mg tablet,delayed 81 mg PO DAILY 10/25/22 08/29/23 release atorvastatin 40 mg tablet 40 mg PO HS 10/25/22 08/29/23 docusate sodium 100 mg capsule 100 mg PO BID 10/25/22 08/29/23 (Colace) guaifenesin 600 mg tablet, 1,200 mg PO BID 10/25/22 08/29/23 extended release 12 hr (Mucinex) melatonin 5 mg tablet 5 mg PO HS 10/25/22 08/29/23 polyethylene glycol 3350 17 gram 17 g PO DAILY PRN Constipation 10/25/22 08/29/23 oral powder packet (Miralax) quetiapine 25 mg tablet 25 mg PO HS 10/25/22 08/29/23 trazodone 50 mg tablet 50 mg PO HS 10/25/22 08/29/23 duloxetine 30 mg capsule,delayed 90 mg PO DAILY 11/09/22 08/29/23 release tramadol 100 mg capsule 50 mg PO Q6H Pain 08/02/23 08/29/23 24h,extended release(25-75) ferrous sulfate 325 mg (65 mg 65 mg PO DAILY 08/29/23 08/29/23 iron) tablet naproxen 250 mg tablet 250 mg PO Q12H 08/29/23 08/29/23 ondansetron 4 mg disintegrating 4 mg PO Q8H PRN Nausea 08/29/23 08/29/23 tablet Allergies Allergy/AdvReac Type Severity Reaction Status Date / Time prednisone Allergy Swelling Verified 08/29/23 12:20 aspirin AdvReac Abdominal Verified 08/29/23 12:20 Pain Review of Systems Review of Systems: A 10 system review of systems was completed on the patient and is negative except for what is stated in the HPI. Nursing and ancillary documentation was reviewed. [facility] Past Medical History Medical History Anxiety Benign prostatic hyperplasia Bipolar 1 disorder Depression Hyperlipidemia Hypertension Posttraumatic stress disorder Tremor Surgical History Surgical History History of back surgery History of placement of nerve stimulator that has since been removed Family History Family History Father Cancer Social History Social History Social History: Surrogate medical decision maker: Nayely and Timo , siblings. Code status: Full code. Smoking status: Current every day smoker Tobacco type: cigarettes Alcohol intake: never Substance use: current Substance use type: marijuana Last use: 08/28/23 Do You Feel Safe in your Home?: Yes Lack of Transportation: No Lack of Food: Never True Current Housing: I Have Housing Concerned About Future Housing: No Difficulty Paying Gas/Electric Bills: No Difficulty Paying for Meds: No Currently Unemployed: No Education: Associate Degree Difficulty w/ Childcare or Family Care: No Additional living arrangements comments: Currently at [facility]. Hoping to move in with a friend in [facility]. Spiritual care concerns: No Exam Narrative:
[2023-11-02 02:27] LABS: NT Pro B Type Natriuretic Pept 241 pg/mL (19.9-100); Troponin I < 0.012 ng/mL (0.000-0.034)
[2023-11-02 02:29] LABS: Large Platelets Present; Ovalocytes 1+; Platelet Estimate Decreased (Adequate); Schistocytes None Seen
[2023-11-02] MEDS: MORPHINE SULFATE (*CRX) 2 MG/ML INJ IV PUSH (02:40)
[2023-11-02] MEDS: ORPHENADRINE CITRATE 100 MG TABLET.ER PO (04:40)
--- NOTE | 2023-11-02 04:57 | ECG_ITS ---
Test Date: 2023-11-02 05:09:41 Measurements Intervals [place] Rate: 68 P: 55 [place]: 186 QRS: -55 QRSD: 143 T: 7 QT: 446 QTc: 477 Interpretive Statements SINUS RHYTHM RIGHT BUNDLE BRANCH BLOCK [120+ ms QRS DURATION, UPRIGHT V1, 40+ ms S IN I/aVL/V4/V5/V6] LEFT ANTERIOR FASCICULAR BLOCK [QRS AXIS <= -45, QR IN I, RS IN II] Compared to ECG 11/02/2023 01:40:25 NO SIGNIFICANT CHANGES Electronically Signed On 11-02-2023 16:02:01 CDT by Es Puckett M.D.
[2023-11-02 05:31] LABS: Troponin I < 0.012 ng/mL (0.000-0.034)
--- NOTE | 2023-11-02 05:44 | ECG_ITS ---
Test Date: 2023-11-02 05:44:16 Measurements Intervals [place] Rate: 65 P: 53 [place]: 177 QRS: -52 QRSD: 148 T: 18 QT: 461 QTc: 483 Interpretive Statements SINUS RHYTHM LEFT AXIS DEVIATION [QRS AXIS < -30] RIGHT BUNDLE BRANCH BLOCK [120+ ms QRS DURATION, UPRIGHT V1, 40+ ms S IN I/aVL/V4/V5/V6] Compared to ECG 11/02/2023 05:09:41 NO SIGNIFICANT CHANGES Electronically Signed On 11-02-2023 16:02:23 CDT by Es Puckett M.D.
[2023-11-02] MEDS: MORPHINE SULFATE (*CRX) 4 MG/ML INJ IV PUSH (06:02)
--- NOTE | 2023-11-02 06:24 | PC.NURSE ---
RN Report to Jessica @ [facility] [place] [phone]
--- NOTE | 2023-11-02 06:52 | PC.NURSE ---
This RN spoke with Jessica @ [facility] to verify if patient actually wears o2 at a baseline. Pt verbalized he does not. 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 Pt does not qualify for an ambulance since he does not wear o2 at all times. EMS Notified.
--- NOTE | 2023-11-02 09:08 | PC.NURSE ---
SPOKE WITH SONIA AT [facility] REGARDING TRANSPORTATION FOR MR CRONIN. SHE STATES THE NIGHT STAFF DIDN'T LET THEM KNOW HE NEEDED A RIDE BUT SHE WILL INVESTIGATE POTENTIAL OPT[employer] AND CALL US BACK [facility]
== END 2023-11-02 06:25 ==
PROVIDERS: Emergency Provider Emergency Medicine
DX: R07.89 Other chest pain (principal); I12.9 Hypertensive chronic kidney disease with stage 1 through stage 4 chronic kidney disease, or unspecified chronic kidney disease; N18.9 Chronic kidney disease, unspecified; E78.5 Hyperlipidemia, unspecified; N40.0 Benign prostatic hyperplasia without lower urinary tract symptoms; M54.50 Low back pain, unspecified; G89.29 Other chronic pain; F41.9 Anxiety disorder, unspecified; F31.9 Bipolar disorder, unspecified; F43.10 Post-traumatic stress disorder, unspecified; F17.210 Nicotine dependence, cigarettes, uncomplicated; Z79.899 Other long term (current) drug therapy; Z79.891 Long term (current) use of opiate analgesic; I49.1 Atrial premature depolarization; I45.2 Bifascicular block
CPT/HCPCS: 36415; 71045; 80053; 83690; 83880; 84484; 85025; 85055; 85610; 85730; 93005; 96374; 96375; 99284; A9270; J2270

== ENCOUNTER 2023-12-04 18:31 | Emergency (ER) | payer MEDICARE, SELFPAY ==
--- NOTE | ~2023-12-04 | CT_ITS ---
EXAMINATION: CT brain wo con DATE: 12/04/2023 20:27 INDICATION: Head injury. Loss of consciousness. TECHNIQUE: Computed tomography (CT) of the head was performed without intravenous contrast. The mA wa s adjusted according to patient size. Iterative reconstruction technique was employed. Exam dose: 68 1.00 mGy-cm total exam DLP. COMPARISON: 10/24/2022 CT head FINDINGS: Moderate cerebral and cerebellar: Loss. No intracranial mass lesion or hemorrhage or cerebrovascular accident. No midline shift or mass effec t. No subdural or epidural hematoma. Prominent bilateral maxillary sinus mucoperiosteal thickening with fluid level in the right maxillary sinus. Mild mucoperiosteal thickening of the sphenoid sinuses and patchy soft tissue thickening of t he ethmoid air cells and frontoethmoid area as. The mastoid air cells are normally developed and aerated. No fracture or bone destruction of the cranial vault. IMPRESSION: No acute intracranial finding or skull fracture Paranasal sinus disease Reviewed, dictated and finalized at [facility]. Reviewed, dictated and finalized at [facility].
--- NOTE | ~2023-12-04 | CT_ITS ---
EXAMINATION: CT cervical spine wo con DATE: 12/04/2023 20:28 INDICATION: TECHNIQUE: Computed tomography (CT) of the cervical spine was performed without intravenous contrast. Automated exposure control and iterative reconstruction technique were employed. Exam dose: 474.07 mGy-cm total exam DLP. COMPARISON: 10/24/2022 CT cervical spine FINDINGS: There is exaggerated cervical curvature with thoracic kyphosis. C1 and C2 are normally aligned and the odontoid process is intact. No fracture or dislocation or lock ed facet or prevertebral soft tissue swelling. No fracture or dislocation or locked facet or prevertebral soft tissue swelling. Cervical interspaces are well preserved. There are prominent degenerative changes of the facet joints. No cervical mass lesion or lymphadenopathy. Parotid and submandibular glands and thyroid gland are un remarkable. Emphysematous changes are noted in the upper lung zones. IMPRESSION: No fracture or dislocation or locked facet Prominent degenerative change of the facet joints Reviewed, dictated and finalized at [facility]. Reviewed, dictated and finalized at [facility].
--- NOTE | ~2023-12-04 | XR_ITS ---
XR knee LT 3V DATE: 12/04/2023 19:43 INDICATION: Left knee pain following fall TECHNIQUE: 3 views COMPARISON: 01/20/2020 left knee FINDINGS: No fracture or dislocation or joint effusion. Slight particular spurring of the patella. Knee joint spaces are relatively preserved. No radiopaque intra-articular loose body or chondrocalcinosis. IMPRESSION: No fracture or dislocation or joint effusion Slight patellofemoral osteoarthritis Reviewed, dictated and finalized at [facility].
--- NOTE | ~2023-12-04 | CT_ITS ---
EXAMINATION: CT chst ab pel [facility] w DATE: 12/04/2023 20:28 INDICATION: Fall. Left lower quadrant pain, back pain TECHNIQUE: Computed tomography (CT) of the chest, abdomen, and pelvis was performed without intraveno us contrast. Automated exposure control and iterative reconstruction technique were employed. Exam do se: 668.79 mGy-cm total exam DLP. COMPARISON: None FINDINGS: CHEST CT: Normal size and homogeneous density of the thyroid gland. No hilar or mediastinal mass lesion or lymphadenopathy. No thoracic aortic aneurysm or dissection. Normal heart size. No pericardial or pleural effusion. Moderately severe emphysematous changes of the lungs. There is some atelectasis in both lower lobes. No pneumothorax, pulmonary vascular congestion or pleural effusion. Small sliding hiatal hernia. ABDOMEN/PELVIS CT: The liver, gallbladder, bile ducts, pancreas, pancreatic duct and spleen are unremarkable. Normal morphology of the adrenal glands. Multiple bilateral renal cysts, including 1.9 cm lateral upper pole left renal hyperdense cyst with a ttenuation of 89 Hounsfield units, consistent with benign hyperdense cyst. The largest cyst on the ri ght is exophytic, measuring up to 3.8 cm. No urinary tract calculus or hydroureteronephrosis. The urinary bladder is unremarkable. There is prostate enlargement. Mild sigmoid colon and descending colon diverticulosis; no CT evidence of diverticulitis. No bowel ob struction or intraperitoneal free air. The appendix is not visualized. There is atherosclerotic calcification but normal caliber of the abdominal aorta and iliac and femora l arteries. No intraperitoneal or retroperitoneal or pelvic mass lesion or adenopathy or ascites. Small fat-containing umbilical hernia. Very small fat-containing inguinal hernias, larger on the left . Old fracture deformities of the posterior right seventh and eighth ribs. No recent fracture or dislocation of the thoracic or lumbar spine. No suspicious osteolytic or osteob lastic lesions are noted. IMPRESSION: Moderately severe emphysema Small sliding hiatal hernia Bilateral renal cysts Diverticulosis of the left colon; no evidence of diverticulitis Reviewed, dictated and finalized at [facility]. Reviewed, dictated and finalized at [facility].
[2023-12-04 18:30] VITALS: PULSE 97; RESP 12; TEMP 36.7; O2SAT 95
--- NOTE | 2023-12-04 18:44 | ECG_ITS ---
Test Date: 2023-12-04 18:57:20 Measurements Intervals [place] Rate: 95 P: 47 [place]: 144 QRS: -49 QRSD: 134 T: 34 QT: 388 QTc: 489 Interpretive Statements SINUS RHYTHM RIGHT BUNDLE BRANCH BLOCK LEFT ANTERIOR FASCICULAR BLOCK CANNOT R/O SEPTAL INFARCT, AGE INDETERMINATE ABNORMAL ECG Compared to ECG 11/02/2023 05:44:16 Left anterior fascicular block now present Electronically Signed On 12-04-2023 19:27:53 CDT by Cecil Boothe D.O.
[2023-12-04 19:07] LABS: Basophils Percent Auto 0.4 % (0.2-1.2); Eosinophils Absolute Auto 0.2 K/mm3 (0-0.3); Eosinophils Percent Auto 3.4 % (0-4.4); Hematocrit 34.2 % (42.0-52.0); Hemoglobin 11.7 g/dL (14.0-18.0); Immature Granulocyte Absolute 0.03 K/mm3 (0.00-0.031); Immature Granulocyte Percent A 0.6 % (0-0.5); Lymphocytes Absolute Auto 1.24 K/mm3 (0.9-3.2); Lymphocytes Percent Auto 23.7 % (18.3-44.2); Mean Corpuscular HGB Conc 34.2 g/dl (32-36); Mean Corpuscular Volume 99.4 fl (80-100); Monocytes Absolute Auto 0.5 K/mm3 (0.1-0.6); Monocytes Percent Auto 9.9 % (2.6-8.5); Neutrophils Absolute Auto 3.2 K/mm3 (1.3-6.7); Platelet Count Result 143 k/mm3 (150-375); Red Blood Count 3.44 M/mm3 (4.6-6.20); Red Cell Distribution Width 14.4 % (11.5-14.5); White Blood Count 5.2 K/mm3 (4.5-10.0)
[2023-12-04 19:18] LABS: Prothrombin Time 13.4 Seconds (11.1-14.7)
[2023-12-04 19:42] LABS: Alanine Aminotransferase 8 U/L (6-50); Albumin Level 4.3 g/dL (3.5-5.1); Alkaline Phosphatase 77 U/L (38-126); Anion Gap 9 mmol/L (4-12); Aspartate Amino Transferase 25 U/L (17-59); Bilirubin,Total 0.4 mg/dL (0.2-1.3); Blood Urea Nitrogen 20 mg/dL (9-20); Calcium 9.5 mg/dL (8.4-10.2); Carbon Dioxide 29 mmol/L (22-30); Chloride 97 mmol/L (98-107); Estimated CRCL calculation 58 ml/min; Estimated Glomerular Filt Rate 55; Glucose 93 mg/dL (65-110); Potassium 4.6 mmol/L (3.4-5.0); Sodium 135 mmol/L (137-145)
[2023-12-04 19:52] LABS: Troponin I < 0.012 ng/mL (0.000-0.034)
[2023-12-04 20:45] VITALS: BP 132/73; PULSE 82; RESP 14; O2SAT 99
--- NOTE | 2023-12-04 21:35 | ED.GENADULT ---
HPI - General Adult General Chief complaint: Fall Stated complaint: Fall Time Seen by Provider: 12/04/23 19:14 History of Present Illness HPI narrative: Patient is a 68-year-old gentleman presents emergency department with chief of fall. Patient fell yesterday reports that he felt lightheaded and dizzy and struck his head on a nightstand. Patient has history of Parkinson's and took a dose of [place] at the facility where he is resident of the patient reports he has a small abrasion to his scalp reports he has pain along his back and also has left lower quadrant. Related Data Home Medications Medication Instructions Recorded Confirmed bupropion HCl 150 mg tablet,12 hr 150 mg PO DAILY 02/10/20 08/29/23 sustained-release gabapentin 100 mg capsule 600 mg PO Q6H 02/10/20 08/29/23 tamsulosin 0.4 mg capsule 0.8 mg PO HS 02/10/20 08/29/23 divalproex 500 mg tablet,delayed 500 mg PO BID 09/02/20 08/29/23 release pantoprazole 40 mg tablet,delayed 40 mg PO HS 09/02/20 08/29/23 release acetaminophen 650 mg tablet 650 mg PO Q6H PRN Pain 10/25/22 08/29/23 aspirin 81 mg tablet,delayed 81 mg PO DAILY 10/25/22 08/29/23 release atorvastatin 40 mg tablet 40 mg PO HS 10/25/22 08/29/23 docusate sodium 100 mg capsule 100 mg PO BID 10/25/22 08/29/23 (Colace) guaifenesin 600 mg tablet, 1,200 mg PO BID 10/25/22 08/29/23 extended release 12 hr (Mucinex) melatonin 5 mg tablet 5 mg PO HS 10/25/22 08/29/23 polyethylene glycol 3350 17 gram 17 g PO DAILY PRN Constipation 10/25/22 08/29/23 oral powder packet (Miralax) quetiapine 25 mg tablet 25 mg PO HS 10/25/22 08/29/23 trazodone 50 mg tablet 50 mg PO HS 10/25/22 08/29/23 duloxetine 30 mg capsule,delayed 90 mg PO DAILY 11/09/22 08/29/23 release tramadol 100 mg capsule 50 mg PO Q6H Pain 08/02/23 08/29/23 24h,extended release(25-75) ferrous sulfate 325 mg (65 mg 65 mg PO DAILY 08/29/23 08/29/23 iron) tablet naproxen 250 mg tablet 250 mg PO Q12H 08/29/23 08/29/23 ondansetron 4 mg disintegrating 4 mg PO Q8H PRN Nausea 08/29/23 08/29/23 tablet Allergies Allergy/AdvReac Type Severity Reaction Status Date / Time prednisone Allergy Swelling Verified 12/04/23 18:42 aspirin AdvReac Abdominal Verified 12/04/23 18:42 Pain Review of Systems Review of Systems: A 10 system review of systems was completed on the patient and is negative except for what is stated in the HPI. Nursing and ancillary documentation was reviewed. [facility] Past Medical History Medical History Anxiety Benign prostatic hyperplasia Bipolar 1 disorder Depression Hyperlipidemia Hypertension Posttraumatic stress disorder Tremor Surgical History Surgical History History of back surgery History of placement of nerve stimulator that has since been removed Family History Family History Father Cancer Social History Social History Social History: Surrogate medical decision maker: Nayely and Timo Leggett, siblings. Code status: Full code. Smoking status: Current every day smoker Tobacco type: cigarettes Alcohol intake: never Substance use: current Substance use type: marijuana Last use: 08/28/23 Do You Feel Safe in your Home?: Yes Lack of Transportation: No Lack of Food: Never True Current Housing: I Have Housing Concerned About Future Housing: No Difficulty Paying Gas/Electric Bills: No Difficulty Paying for Meds: No Currently Unemployed: No Education: Associate Degree Difficulty w/ Childcare or Family Care: No Additional living arrangements comments: Currently at [facility]. Hoping to move in with a friend in [facility]. Spiritual care concerns: No Exam Narrative: GENERAL: Well-appearing,
[2023-12-04 22:11] VITALS: BP 120/90; PULSE 88; RESP 20; TEMP 36.6; O2SAT 96
== END 2023-12-04 23:25 ==
PROVIDERS: Registered Nurse; Emergency Provider Emergency Medicine
DX: S00.01XA Abrasion of scalp, initial encounter (principal); M54.9 Dorsalgia, unspecified; R10.32 Left lower quadrant pain; G20.A1 Parkinson's disease without dyskinesia, without mention of fluctuations; N40.0 Benign prostatic hyperplasia without lower urinary tract symptoms; E78.5 Hyperlipidemia, unspecified; I10 Essential (primary) hypertension; F31.9 Bipolar disorder, unspecified; F43.10 Post-traumatic stress disorder, unspecified; F41.9 Anxiety disorder, unspecified; F17.210 Nicotine dependence, cigarettes, uncomplicated; Z79.899 Other long term (current) drug therapy; Z79.82 Long term (current) use of aspirin; J43.9 Emphysema, unspecified; K44.9 Diaphragmatic hernia without obstruction or gangrene; N28.1 Cyst of kidney, acquired; K57.90 Diverticulosis of intestine, part unspecified, without perforation or abscess without bleeding; M17.12 Unilateral primary osteoarthritis, left knee; J32.4 Chronic pansinusitis; I45.2 Bifascicular block; R94.31 Abnormal electrocardiogram [ECG] [EKG]; W01.190A Fall on same level from slipping, tripping and stumbling with subsequent striking against furniture, initial encounter
CPT/HCPCS: 36415; 70450; 71260; 72125; 72129; 72132; 73562; 74177; 80053; 84484; 85025; 85610; 85730; 93005; 99284; Q9967

== ENCOUNTER 2024-01-03 08:40 | Emergency (ER) | payer MEDICARE, SELFPAY ==
[2024-01-03 08:40] VITALS: BP 134/86; PULSE 103; RESP 18; TEMP 36.6; O2SAT 94
[2024-01-03 09:00] VITALS: BP 138/84; PULSE 96; RESP 16; O2SAT 95
[2024-01-03] MEDS: LIDOCAINE 5% PATCH 1 PATCH TRANSDERM (09:07)
[2024-01-03] MEDS: predniSONE 20 MG TABLET 40 MG PO (09:07)
[2024-01-03] MEDS: KETOROLAC 30 MG/ML VIAL (*BKC) 15 MG IM (09:08)
--- NOTE | 2024-01-03 09:18 | ED.BACK ---
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 Sees his doctor for it but states that his doctor is usually out of town Related Data Home Medications Medication Instructions Recorded Confirmed bupropion HCl 150 mg tablet,12 hr 150 mg PO DAILY 02/10/20 08/29/23 sustained-release gabapentin 100 mg capsule 600 mg PO Q6H 02/10/20 08/29/23 tamsulosin 0.4 mg capsule 0.8 mg PO HS 02/10/20 08/29/23 divalproex 500 mg tablet,delayed 500 mg PO BID 09/02/20 08/29/23 release pantoprazole 40 mg tablet,delayed 40 mg PO HS 09/02/20 08/29/23 release acetaminophen 650 mg tablet 650 mg PO Q6H PRN Pain 10/25/22 08/29/23 aspirin 81 mg tablet,delayed 81 mg PO DAILY 10/25/22 08/29/23 release atorvastatin 40 mg tablet 40 mg PO HS 10/25/22 08/29/23 docusate sodium 100 mg capsule 100 mg PO BID 10/25/22 08/29/23 (Colace) guaifenesin 600 mg tablet, 1,200 mg PO BID 10/25/22 08/29/23 extended release 12 hr (Mucinex) melatonin 5 mg tablet 5 mg PO HS 10/25/22 08/29/23 polyethylene glycol 3350 17 gram 17 g PO DAILY PRN Constipation 10/25/22 08/29/23 oral powder packet (Miralax) quetiapine 25 mg tablet 25 mg PO HS 10/25/22 08/29/23 trazodone 50 mg tablet 50 mg PO HS 10/25/22 08/29/23 duloxetine 30 mg capsule,delayed 90 mg PO DAILY 11/09/22 08/29/23 release tramadol 100 mg capsule 50 mg PO Q6H Pain 08/02/23 08/29/23 24h,extended release(25-75) ferrous sulfate 325 mg (65 mg 65 mg PO DAILY 08/29/23 08/29/23 iron) tablet naproxen 250 mg tablet 250 mg PO Q12H 08/29/23 08/29/23 ondansetron 4 mg disintegrating 4 mg PO Q8H PRN Nausea 08/29/23 08/29/23 tablet Allergies Allergy/AdvReac Type Severity Reaction Status Date / Time prednisone Allergy Swelling Verified 01/03/24 09:02 aspirin AdvReac Abdominal Verified 01/03/24 09:02 Pain Review of Systems Review of Systems: All systems reviewed & are unremarkable except as noted in HPI and below PMFSH Past Medical History Medical History Anxiety Benign prostatic hyperplasia Bipolar 1 disorder Depression Hyperlipidemia Hypertension Posttraumatic stress disorder Tremor Surgical History Surgical History History of back surgery History of placement of nerve stimulator that has since been removed Family History Family History Father Cancer Social History Social History Social History: Surrogate medical decision maker: Nayely and Timo , siblings. Code status: Full code. Smoking status: Current every day smoker Tobacco type: cigarettes Alcohol intake: never Substance use: current Substance use type: marijuana Last use: 08/28/23 Do You Feel Safe in your Home?: Yes Lack of Transportation: No Lack of Food: Never True Current Housing: I Have Housing Concerned About Future Housing: No Difficulty Paying Gas/Electric Bills: No Difficulty Paying for Meds: No Currently Unemployed: No Education: Associate Degree Difficulty w/ Childcare or Family Care: No Additional living arrangements comments: Currently at [facility]. Hoping to move in with a friend in [place]. Spiritual care concerns: No Exam Narrative: EXAMINATION OF ORGAN SYSTEMS/BODY AREAS: Constitutional: Vital signs per nursing GENERAL:[No acute distress, non-toxic appearing.] HEAD: Normal with no signs of head trauma. EYES: EOMI, conjunctiva normal ENT: Hearing grossly intact LUNGS: Nonlabored breathing. HEART: [Regular rate and rhythm] ABD: [Soft], [nontender to palpation] EXT: Normal range of motion
--- NOTE | 2024-01-03 09:20 | PC.NURSE ---
CALL PLACED TO KATELYN CORBIN AT TO UPDATE ON POC; EMERALD UPDATED THAT PT WILL BE GETTING D/C HERE SHORTLY - EMERALD STATES HE LIVES OVER 2 HOURS AWAY AND THAT [facility] USUALLY TRANSPORTS PT.
--- NOTE | 2024-01-03 09:24 | PC.NURSE ---
CALL PLACED TO [facility] [place] - STATES THEY WILL ARRANGE GETTING TRANSPORTATION HERE.
[2024-01-03 10:00] VITALS: BP 130/71; PULSE 85; RESP 18; O2SAT 100
[2024-01-03 10:04] LABS: Add Urine Microscopic? YES; Appearance Urine Clear (Clear); Bacteria Urine None Seen /hpf; Bilirubin Urine Negative (Negative); Blood Urine Negative (Negative); Color Urine Yellow (Yellow); Glucose Urine UA Negative (Negative); Ketones Urine Trace mg/dL (Negative); Leukocyte Esterase Ur Trace LEU/UL (Negative); Nitrate Urine Negative (Negative); Non Pathogenic Casts 0-2; Protein Urine Negative (Negative); RBC Urine 0-2 /hpf (0-2); Specific Grav Ur 1.012 (1.001-1.035); Squamous Epithelial Cell Urine None Seen /hpf (Few); WBC Urine 0-5 /hpf (0-3)
== END 2024-01-03 10:30 ==
PROVIDERS: Emergency Provider Emergency Medicine
DX: M54.50 Low back pain, unspecified (principal); G89.29 Other chronic pain; I10 Essential (primary) hypertension; E78.5 Hyperlipidemia, unspecified; N40.0 Benign prostatic hyperplasia without lower urinary tract symptoms; F41.9 Anxiety disorder, unspecified; F31.9 Bipolar disorder, unspecified; F17.210 Nicotine dependence, cigarettes, uncomplicated; Z79.82 Long term (current) use of aspirin; Z79.899 Other long term (current) drug therapy
CPT/HCPCS: 81001; 96372; 99283; A9270; J1885; J7512

== ENCOUNTER 2024-01-30 12:30 | Emergency (ER) | payer MEDICARE, SELFPAY ==
--- NOTE | ~2024-01-30 | XR_ITS ---
EXAMINATION: XR thoracic spine 3V, XR lumbar spine 2-3V DATE: 01/30/2024 15:45 INDICATION: Chronic back pain. Fall. TECHNIQUE: 1. One AP, lateral and lateral swimmer's views of the thoracic spine were obtained. 2. AP, lateral and coned-down lateral lumbosacral views of the lumbar spine were obtained. COMPARISON: CT dated 12/04/2023 FINDINGS: 16 degree dextroscoliosis between T2 and T7, 21 degrees levoscoliosis between T7 and L1 and 20 degree s dextro scoliosis between L1 and S1. Normal sagittal alignment in the thoracic spine. 3 mm anterolis thesis L2 on L3 and 3 mm retrolisthesis L3 on L4. Vertebral body heights are normal throughout the th oracic and lumbar spine. Multilevel disc height loss moderate severity at T2-T3 through T5-T6 with mi ld disc height loss at multiple levels in the lower cervical spine. Additional moderate disc height l oss at L2-L3 with mild disc height loss at the remaining lumbar levels. Severe facet osteoarthritis i n the right at L5-S1. Mild to moderate facet osteoarthritis throughout the remainder of the lumbar sp ine. Mild bilateral sacroiliac osteoarthritis. Mild elevation the left hemidiaphragm. Visualized port ion of lungs are clear with no pleural effusion or pneumothorax. Heart size is normal. Normal bowel g as pattern. IMPRESSION: 1. Component S-shaped scoliosis of the thoracic and lumbar spine with moderate thoracic and lumbar sp ondylosis. Reviewed, dictated and finalized at location [facility]. [facility] CHIEF IMPRESSION: 1. Component S-shaped scoliosis of the thoracic and lumbar spine with moderate thoracic and lumbar spondylosis.
--- NOTE | ~2024-01-30 | XR_ITS ---
EXAMINATION:[id number] DATE: 01/30/2024 15:45 INDICATION: Back pain post fall TECHNIQUE: AP, lateral and odontoid views of the cervical spine are provided. COMPARISON: None FINDINGS: Mildly exaggerated cervical lordosis. No spondylolisthesis or facet subluxation. Vertebral body and d isc heights are normal. No fractures identified. Moderate and severe cervical facet osteoarthritis mo st prominent on the left at C4-C5 and C5-C6 and bilaterally at C7-T1. Odontoid is intact. Normal genaro antoaxial interval. Prevertebral soft tissues are normal. IMPRESSION: 1. Multilevel moderate and severe cervical facet osteoarthritis. Reviewed, dictated and finalized at location B. [facility]
[2024-01-30 12:54] VITALS: BP 135/88; PULSE 108; RESP 18; TEMP 36.3; O2SAT 94
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
[2024-01-30 16:25] VITALS: BP 126/89; PULSE 82; RESP 16; TEMP 36.5; O2SAT 100
--- NOTE | 2024-01-30 16:30 | PC.NURSE ---
Attempted to call [facility] to see if they are able to provide transport to patient as patient does not have family in this area. Per [facility] their transportation has already left for the day. [facility] in [place] aware patient will be returning to them. Call made to [facility], Care coordination explained patient circumstances. Per [facility] will come down and bring pt cab voucher so patient is able to return to his facility.
--- NOTE | 2024-01-30 16:55 | PC.NURSE ---
Cab Voucher received from [facility]. [facility] called to come take patient back to facility. Per [facility] it will be atleast 20 minutes.
--- NOTE | 2024-01-30 17:05 | PC.NURSE ---
Staff from [facility] assisted living facility came to [facility] picker patient to bring him back to facility. Called to [facility] [employer]. Patient sent with [facility] staff member.
== END 2024-01-30 17:05 ==
PROVIDERS: Emergency Provider Emergency Medicine
DX: M54.50 Low back pain, unspecified (principal); G89.29 Other chronic pain; I10 Essential (primary) hypertension; E78.5 Hyperlipidemia, unspecified; N40.0 Benign prostatic hyperplasia without lower urinary tract symptoms; F41.9 Anxiety disorder, unspecified; F31.9 Bipolar disorder, unspecified; F43.10 Post-traumatic stress disorder, unspecified; F17.210 Nicotine dependence, cigarettes, uncomplicated; Z79.82 Long term (current) use of aspirin; Z79.899 Other long term (current) drug therapy; M47.812 Spondylosis without myelopathy or radiculopathy, cervical region; M41.9 Scoliosis, unspecified; M47.814 Spondylosis without myelopathy or radiculopathy, thoracic region; M47.816 Spondylosis without myelopathy or radiculopathy, lumbar region
CPT/HCPCS: 72040; 72072; 72100; 99284